=== PATIENT | male | born 1950 | race Caucasian/White ===

== ENCOUNTER 2023-05-25 14:14 | Outpatient (REF) | payer MEDICARE, OTHER, SELFPAY ==
--- NOTE | ~2023-05-25 | XR_ITS ---
EXAMINATION: XR LUMBOSACRAL SPINE WITH OBLIQUES CLINICAL INFORMATION: Pain. Other symptoms and signs involving nervous system. COMPARISON: None available. TECHNIQUE: AP and lateral views of the lumbar spine were obtained. The technologist reports that the patient was unable to stand for the bending views. Therefore, this is a 2 view examination. FINDINGS: There is an old anterior compression fracture of the T12 vertebral body which exhibits approximately 35% height loss. There are 5 segmented vertebra of the lumbar spine. The lumbar vertebral body heights are maintained. Mild multilevel narrowing of lumbar disc spaces and vertebral osteophyte formation. Also, there is moderate loss of disc height at L3-L4. There is approximately 0.3 cm of mild degenerative retrolisthesis at L1-L2, L2-L3 and L3-L4. Alignment is normal at L4-L5 and L5-S1. The spinous processes are hypertrophied and are likely chronically abutting at L2-L3, L3-L4 and L4-L5. Sacrum and sacroiliac joints are unremarkable. There is atherosclerotic calcification of the aorta and iliac arteries. XR/XR lumbar spine 2-3V IMPRESSION: * No acute abnormalities within the degenerated lumbar spine. * The loss of disc height is worst (moderate in degree) at L3-L4. * Mild degenerative retrolisthesis is noted at L1-L2, L2-L3 and L3-L4. 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 * Old compression fracture of the T12 vertebral body.
== END 2023-05-25 14:15 | disposition home or self-care (01) ==
LOC: HO.HOSX 14:14
PROVIDERS: Visit Provider Physician Assistant
DX: M54.50 Low back pain, unspecified (principal); R29.818 Other symptoms and signs involving the nervous system
CPT/HCPCS: 72100; 72110; 99202

== ENCOUNTER 2023-05-25 14:14 | Outpatient (AMB) | payer MEDICARE, OTHER, SELFPAY ==
--- NOTE | 2023-05-25 14:31 | HO.SPINEOV ---
Intake Intake Visit Reasons: Back pain Intake Note: Mr. Shay is here c/o back pain that radiates to left hip County Manager Required: No Allergies No Known Allergies Allergy (Verified 05/25/23 14:40) Assessment & Plan Assessment & Plan (1) Neurogenic claudication: Code(s): R29.818 - Other symptoms and signs involving the nervous system Plan Nasrin is a pleasant 73-year-old male who is self-referred here. He comes in today with a chief complaint low back pain with radiation into his left lower extremity. He reports that his associated symptoms of difficulty walking. He states that his pain starts in his low back, shoots into his left lateral hip, goes over the top of his left thigh, down around the back of his knee, into his posterior/lateral calf and terminates at the top of his left foot. He states that this pain started roughly 4/5 years ago, and does not have any inciting incident that he can identify. He states that he has been to physical therapy multiple times since his initial injury which has been unhelpful, and has also tried several different cortisone injections into his back which have not been helpful. He has tried a plethora of svev-cug-ffvaazi medications with only minimal relief. He is now at the point where he can only walk very short distances until he feels shooting pains into his leg and needs to stop. He reports that previously he was able to mitigate this pain by using assistive devices such as his cane or a shopping cart to walk around a store. But now it is to the point where even with a cane he can not walk more than about 30 seconds. PMH: Two stents placed in his heart in November of last year (currently on anticoagulation in the form of Ticagrelor). T2DM (patient unsure of last A1C, states it is well controlled with Metformin alone). Hypothyroidism, GERD, gout, hyperlipidemia, hypertension, BPH. Social hx: Patient does not smoke, reports no substance use. Medications: Aspirin, lisinopril, allopurinol, esomeprazole, levothyroxine, metoprolol, atorvastatin, eplerenone, Flomax, metformin. Allergies: NKDA. Physical exam: The patient has 5/5 strength in his upper and lower extremities. No sensational deficits. Reflexes are 2+ intact. He has significant difficulty with ambulation needs to utilize a cane to do so. He is able to rise from seated position without significant difficulty. (-) Lewis's, (-) clonus, (-) straight leg raise. Imaging review: MRI of the lumbar spine completed at [facility] (Olga has the disc) is non-interactive and shows individual pictures that must be panned through. It appears the patient has severe central canal stenosis accompanied by severe bilateral foraminal stenosis at L3-4. There is also moderate-severe central canal stenosis, accompanied by moderate-severe bilateral foraminal stenosis at L4-5. Impression: Nasrin is a pleasant 73-year-old male who comes in today with a chief complaint of low back pain with radiation into his left lower extremity. He has significant difficulty walking as well, and is now at the point where he can not ambulate for more than 30 seconds without needing to stop and rest. His lumbar radiculopathy on the left side is in a classic L4/5 distribution. His inability to ambulate for prolonged periods of time without needing to rest is classic for neurogenic claudication as a result of spinal canal stenosis. After reviewing this patient's case and imaging with Dr. Gudino he offered the patient a left-sided L3-4, L4-5 lumbar decompression. The patient has been added to our schedule for 08/11/2023. He is aware that he will need to stop his Ticagrelor 3 days hours before surgery. He will also need to see his caser shoe parts and obtain cardiac clearance prior to surgery. The patient was given risk and benefits of surgery including but not limited to infection, hematoma, nerve injury, durotomy, weakness, bowel/bladder injury, persistent pain, as well as the option to continue with conservative treatment and patient wishes to proceed with surgery. He is aware they should stop NSAIDs 7 days prior to surgery. All questions were answered to the best of our ability. If there is anything about this patients medical history that we have overlooked or concerns you have about us proceeding with surgery we would appreciate any input you can offer. Thank you for allowing us to care for your patient. The total time spent with this visit with this patient was 45 minutes reviewing history, physical exam, MRI imaging review, and implementation of treatment plan or further diagnostic testing. Rocco Gudino MD,PhD [facility] Orders: Orders XR lumbar spine 4V min Today R29.818 - Other symptoms and signs involving the nervous system Coding Level of Care Code Global (37042) Diagnoses Neurogenic claudication R29.818
== END 2023-05-25 15:37 | disposition home or self-care (01) ==
PROVIDERS: Visit Provider Physician Assistant
DX: R29.818 Other symptoms and signs involving the nervous system (principal)
CPT/HCPCS: 99204

== ENCOUNTER → 2023-07-28 13:22 | Outpatient (BNV) | payer MEDICARE, OTHER, SELFPAY | PROVIDERS: Visit Provider Internal Medicine Cardiovascular Disease | DX: I44.0 Atrioventricular block, first degree (principal) | CPT/HCPCS: 93010 ==

== ENCOUNTER 2023-10-06 08:44 | Day surgery (SDC) | payer MEDICARE, OTHER, SELFPAY ==
--- NOTE | 2023-07-28 | ECG_ITS ---
Test Reason : PREOP Blood Pressure : / mmHG Vent. Rate : 078 BPM Atrial Rate : 078 BPM P-R Int : 214 ms QRS Dur : 088 ms QT Int : 384 ms P-R-T Axes : 052 021 049 degrees QTc Int : 437 ms Sinus rhythm with 1st degree A-V block Otherwise normal ECG No previous ECGs available Referred By: Annette Lee Electronically Signed By:ZACH FLYNN MD
[2023-07-28 12:17] VITALS: BP 135/66; PULSE 74; RESP 20; O2SAT 98; BMI 34.9
--- NOTE | 2023-07-28 12:28 | P.CONAN_ITS ---
HPI - Anesthesia Eval Consult details Narrative: Surgery to be rescheduled Pt with critically low H&H at [facility]. Call to patient with recommendation for return to [facility] for ER eval. Pt and family on their way home to [place] and prefer to seek medical attention closer to home. Pt asymptomatic and is not driving himself. T/C to pt's PCP Dr Casas in [place], [place] with results of CBC. PCP contacting patient with instruction to go to local ER for further w/u. Pt will need anemia optimized prior to elective spine surgery. (Also, pending cardiac clearance scheduled for 08/02/23) 73yo M for Left L 3-4,L4-5 Microlumbar discectomy Cardiac clearance pending No recent illness No CP. REEVES r/t deconditioning. Very limited activity CAD s/p stent x 2, last 11/2022: Brillinta, aspirin CHF: No edema, no orthopnea s/p RUL lobectomy 2020 DM: Metoformin only, does not check BS GERD: ppi controlls ROXANNE:No CPAP at this time, denies CRI: Follows nephrology [facility] Active Problems Active Problems: All Active Problems Neurogenic claudication (Acute) Past Medical History Medical History (Updated 07/28/23 @ 12:26 by Mayra Kramer RN) Chronic renal insufficiency Compression fracture of T12 vertebra Murmur Lung cancer Arthritis CHF (congestive heart failure) Iron deficiency anemia Hypothyroid Sleep apnea Gout CAD (coronary artery disease) Diabetes GERD (gastroesophageal reflux disease) Elevated cholesterol HTN (hypertension) Family History Family history of problems with anesthesia: No Surgical History Surgical History (Updated 07/28/23 @ 12:13 by Mayra Kramer RN) H/O colonoscopy Hx of inguinal hernia repair History of back surgery History of lung surgery Hx of heart artery stent History of Problems with Anesthesia: No Social History Social History Are you a primary nonfarm animal caretaker to a significant other at home: No Do you presently have visiting nurse or other home services: No Patient Tobacco Use Status: Former Tobacco user Quit Date: 2019 Tobacco use type: Cigarette Years Smoked: 40 Use of substances other than those prescribed or required for medical reasons: No Have you been hit, kicked, punched, or otherwise hurt by someone within the past year? If so, by whom?: No Are you DNR?: No Advance Directives Information Provided: Yes (as above noted) Advance Directives on File: No Recently lost weight without trying: No Eating poorly because of decreased appetite: No Nutrition Risks: No Nutritional Risk Meds Allergies Allergy/AdvReac Type Severity Reaction Status Date / Time No Known Allergies Allergy Verified 05/25/23 14:40 Home Medications ?Medication ?Instructions ?Recorded ?Confirmed ?Last Taken ?Type allopurinol 100 mg tablet 200 mg PO QAM 05/25/23 07/28/23 Unknown History aspirin 81 mg tablet,delayed 81 mg PO QAM 05/25/23 07/28/23 Unknown History release atorvastatin 40 mg tablet 40 mg PO BEDTIME 05/25/23 07/28/23 Unknown History esomeprazole magnesium 40 mg 40 mg PO QAM 05/25/23 07/28/23 Unknown History capsule,delayed release lisinopril 40 mg tablet 40 mg PO QAM 05/25/23 07/28/23 Unknown History metoprolol succinate 100 mg 100 mg PO BEDTIME 05/25/23 07/28/23 Unknown History tablet,extended release 24 hr eplerenone 50 mg tablet 50 mg PO BEDTIME 07/27/23 07/28/23 Unknown History metformin 500 mg tablet 500 mg PO BID 07/27/23 07/28/23 Unknown History tamsulosin 0.4 mg capsule 0.4 mg PO BEDTIME 07/27/23 07/28/23 Unknown History ticagrelor 90 mg tablet (Brilinta) 90 mg PO BID 07/27/23 07/28/23 Unknown History docusate sodium 100 mg capsule 100 mg PO Q2D 07/28/23 07/28/23 Unknown History (Colace) ferrous sulfate 325 mg (65 mg 325 mg PO Q2D 07/28/23 07/28/23 Unknown History iron) tablet levothyroxine 100 mcg tablet 100 mcg PO QAM 07/28/23 07/28/23 Unknown History Exam Height,Weight and Vital Signs: Height 5 ft 11 in Weight 113.398 kg Last Vital Signs Pulse 74 07/28/23 12:17 Resp 20 07/28/23 12:17 BP 135/66 07/28/23 12:17 Pulse Ox 98 07/28/23 12:17 O2 Del Method Room Air 07/28/23 12:17 Airway Mallampati Class: II TM Dist: >3cm Neck ROM: Full (OA) Loose/Missing/Broken Teeth: No (#8 capped, crowned molars,Upper permanent bridge) Heart: RRR +M Lungs: CTAB Assessment and Plan Assessment Anesthesia Assessment: Anesthesia Plan Discussed and PAT Visit Final Anesthetic Review Family History of Problems with Anesthesia: No History of Problems with Anesthesia: No
[2023-07-28 13:20] LABS: MANUAL DIFF FLAG NO
[2023-07-28 14:06] LABS: Basophils Absolute Auto 0.1 X10*3/uL (0.0-0.2); Basophils Percent Auto 0.6 % (0-2); Eosinophils Absolute Auto 0.4 X10*3/uL (0.0-0.4); Eosinophils Percent Auto 3.2 % (0-4); Imm Gran Abs Auto 0.08 X10*3/uL (0.00-0.03); Imm Gran Pct Auto 0.7 % (0.0-0.4); Lymphocytes Absolute Auto 1.4 X10*3/uL (1.2-4.9); Lymphocytes Percent Auto 12.3 % (20-40); Mean Corpuscular HGB Conc 25.4 g/dl (31.0-36.0); Mean Corpuscular Hemoglobin 17.6 pg (27.0-33.0); Mean Corpuscular Volume 69.4 fL (80.0-98.0); Mean Platelet Volume 9.7 fL (9.4-12.4); Monocytes Absolute Auto 0.9 X10*3/uL (0.1-1.2); Monocytes Percent Auto 7.9 % (2-11); Neutrophils Absolute Auto 8.4 x10*3/uL (2.0-8.3); Neutrophils Percent Auto 75.3 % (45-73); Platelet Count 275 X10*3/uL (160-400); Red Blood Count 3.46 X10*6/uL (4.60-5.80); Red Cell Distribution Width 20.1 % (11.0-16.0); White Blood Count 11.2 X10*3/uL (4.8-10.8)
[2023-07-28 14:12] LABS: Hemoglobin 6.1 g/dl (14.0-18.0)
[2023-07-28 14:15] LABS: Estimated Average Glucose 100 mg/dL; Hemoglobin A1c % 5.1 % (<6.0)
[2023-07-28 14:47] LABS: Anion Gap 17 (12-20); Blood Urea Nitrogen 14 mg/dL (9-16); Calcium 9.8 mg/dL (8.4-10.2); Carbon Dioxide 22 mmol/L (22-29); Chloride 107 mmol/L (96-108); Creatinine Clr Calc Pharmacy 59.8; Estimated Glomerular Filt Rate 48; Glucose Random 86 mg/dL (60-115); Potassium 5.2 mmol/L (3.3-5.1); Sodium 141 mmol/L (135-145)
[2023-07-28 15:02] LABS: TSH reflex Free T4 0.52 uIU/mL (0.32-4.0)
--- NOTE | 2023-10-05 08:50 | HO.ANESPROP2 ---
HPI - Anesthesia Eval Consult details Narrative: 73yo M for Left L 3-4,L4-5 Microlumbar discectomy Cardiac optimized No recent illness No CP. REEVES r/t deconditioning. Very limited activity CAD s/p stent x 2, last 11/2022: Brillinta, aspirin. Follows quality improvement coordinator in [place] CHF: No edema, no orthopnea s/p RUL lobectomy 2020 DM: Metoformin only, does not check BS GERD: ppi controlls ROXANNE:No CPAP at this time, denies CRI: Follows nephrology 07/28/23: Pt with critically low H&H at [facility]. Call to patient with recommendation for return to [facility] for ER eval. Pt and family on their way home to [place] and prefer to seek medical attention closer to home. Pt asymptomatic and is not driving himself. T/C to pt's PCP Dr Casas in [place], [place] with results of CBC. PCP contacting patient with instruction to go to local ER for further w/u. Pt will need anemia optimized prior to elective spine surgery. (Also, pending cardiac clearance scheduled for 08/02/23) 09/2023: Pt rec'd 2 units of PRBC in ER in July. Seen by quality improvement coordinator that recommending stopping DAPT (stent 8 months prior). Hgb up to 11.. Cardiac clearance rec'd. PMFSH Active Problems Active Problems: All Active Problems Neurogenic claudication (Acute) Past Medical History Medical History Chronic renal insufficiency Compression fracture of T12 vertebra Murmur Lung cancer Arthritis CHF (congestive heart failure) Iron deficiency anemia Hypothyroid Sleep apnea Gout CAD (coronary artery disease) Diabetes GERD (gastroesophageal reflux disease) Elevated cholesterol HTN (hypertension) Family History Family history of problems with anesthesia: No Surgical History Surgical History H/O colonoscopy Hx of inguinal hernia repair History of back surgery History of lung surgery Hx of heart artery stent History of Problems with Anesthesia: No Social History Social History Are you a primary customer care representative to a significant other at home: No Do you presently have visiting nurse or other home services: No Patient Tobacco Use Status: Former Tobacco user Tobacco use type: Cigarette Years Smoked: 40 Meds Allergies Allergy/AdvReac Type Severity Reaction Status Date / Time No Known Allergies Allergy Verified 05/25/23 14:40 Home Medications ?Medication ?Instructions ?Recorded ?Confirmed ?Last Taken ?Type allopurinol 100 mg tablet 200 mg PO QAM 05/25/23 10/06/23 10/05/23 History aspirin 81 mg tablet,delayed 81 mg PO QAM 05/25/23 10/06/23 10/05/23 History release atorvastatin 40 mg tablet 40 mg PO BEDTIME 05/25/23 10/06/23 10/05/23 History esomeprazole magnesium 40 mg 40 mg PO QAM 05/25/23 07/28/23 10/06/23 History capsule,delayed release lisinopril 40 mg tablet 40 mg PO QAM 05/25/23 07/28/23 Unknown History metoprolol succinate 100 mg 100 mg PO BEDTIME 05/25/23 07/28/23 10/06/23 History tablet,extended release 24 hr eplerenone 50 mg tablet 50 mg PO BEDTIME 07/27/23 10/06/23 10/05/23 History metformin 500 mg tablet 500 mg PO BID 07/27/23 10/06/23 10/05/23 History tamsulosin 0.4 mg capsule 0.4 mg PO BEDTIME 07/27/23 10/06/23 10/05/23 History docusate sodium 100 mg capsule 100 mg PO Q2D 07/28/23 07/28/23 Unknown History (Colace) ferrous sulfate 325 mg (65 mg 325 mg PO Q2D 07/28/23 07/28/23 Unknown History iron) tablet levothyroxine 100 mcg tablet 100 mcg PO QAM 07/28/23 07/28/23 10/06/23 History Exam Height,Weight and Vital Signs: Height 5 ft 11 in Weight 113.398 kg Last Vital Signs Pulse 74 07/28/23 12:17 Resp 20 07/28/23 12:17 BP 135/66 07/28/23 12:17 Pulse Ox 98 07/28/23 12:17 O2 Del Method Room Air 07/28/23 12:17 Pertinent Lab Results Pertinent Lab Results: Laboratory Tests 07/28/23 13:18 WBC 11.2 H RBC 3.46 L Hgb 6.1 L* Hct 24.0 L MCV 69.4 L MCH 17.6 L MCHC 25.4 L RDW 20.1 H Plt Count 275 MPV 9.7 Immature Gran % (Auto) 0.7 H Neut % (Auto) 75.3 H Lymph % (Auto) 12.3 L [place] % (Auto) 7.9 Eos % (Auto) 3.2 Baso % (Auto) 0.6 Lymph # (Auto) 1.4 [place] # (Auto) 0.9 Eos # (Auto) 0.4 Baso # (Auto) 0.1 Abs Immat Gran (auto) 0.08 H Absolute Neuts (auto) 8.4 H Absolute Nucleated RBC 0.000 Nucleated RBC % (auto) 0.0 Smear Path Review SEE NOTE Sodium 141 Potassium 5.2 H Chloride 107 Carbon Dioxide 22 Anion Gap 17 BUN 14 Creatinine 1.45 H Estim Creat Clear Calc 59.8 Estimated GFR 48 Random Glucose 86 Estimat Average Glucose 100 Hemoglobin A1c % 5.1 Calcium 9.8 TSH 0.52 Repeat H&H 09/27/23: 11.5/40.5 Narrative Narrative: EKG 07/2023 Vent. Rate : 078 BPM Atrial Rate : 078 BPM P-R Int : 214 ms QRS Dur : 088 ms QT Int : 384 ms P-R-T Axes : 052 021 049 degrees QTc Int : 437 ms Sinus rhythm with 1st degree A-V block Otherwise normal ECG No previous ECGs available Assessment and Plan Final Anesthetic Review Family History of Problems with Anesthesia: No History of Problems with Anesthesia: No
[2023-10-06] VITALS (10 sets, daily range): BP systolic 161–176; BP diastolic 81–95; PULSE 59–72; RESP 13–18; TEMP 36.4–36.8; O2SAT 93–98; BMI 36.3
--- NOTE | ~2023-10-06 | FL_ITS ---
EXAMINATION: XR FLUOROSCOPY WITH IMAGES CLINICAL INFORMATION: L3-4 and L4-5 discectomy. COMPARISON: Plain films lumbar spine 05/25/2023. TECHNIQUE: Fluoroscopy provided to: Dr. Gudino Fluoroscopy time: 0.1 minutes DAP: 0.806 Gycm2 Images: 1 FINDINGS: Image only of a left marker. FL/FL guidance in OR IMPRESSION: Fluoroscopic guidance. Please refer to the full operative report for details. Electronically signed by: Ron Tristan MD 12/07/2023 04:43 PM EDT
--- OUTSIDE RECORDS SUMMARY | 2023-10-06 08:46 | XMS_ITS | Summary of Care ---
Author Organization [facility] Address [address] [place], [place] [address]- Care Team Providers Care Contract Negotiation Specialist Name Role Phone Lazara Casas DO Primary Care Physician Encounter [facility] [id number] Date(s): 04/18/20 - 04/18/20 [place] [id number] Discharge Disposition: Home Attending Physician: Charmaine Perez MD Problem List Condition Effective Dates Status Health Status Inform ant Essential hypertension(Confirmed) Active Hyperlipemia(Confirmed) Active Lung cancer(Confirmed) Active Urinary urgency due to benig n prostatic hypertrophy(Confirmed) Active Allergies, Adverse Reactions, Alerts No Known Allergies Medications aspirin 81 mg oral delayed release tablet 81 mg 1 tab, PO, daily, # 30 tab, 0 Refill(s), Pharmacy: [facility] #[id number] Start Date: 10/31/17 Status: Ordered atorvastatin 40 mg oral tablet 40 mg 1 tab, PO, qPM, # 30 tab, 0 Refill(s), [id number] Start Date: 10/31/17 Status: Ordered chlorthalidone 25 mg oral tablet 25 mg 1 tab, PO, daily, 0 Refill(s) Start Date: 02/25/20 Status: Ordered Compazine 10 mg oral tablet 10 mg 1 tab, PO, q6hr, PRN Nausea/Vomiting, # 30 tab, 2 Refill(s), Pharmacy: [facility] #[id number], 180.34, cm, 03/21/20 10:24:00 EST, Height, 132, kg, 03/21/20 10:24:00 EST, Actual Weight Start Date: 03/21/20 Status: Ordered dexamethasone 4 mg oral tablet 4 mg 1 tab, PO, BID, for 3 days starting the day before chemo, # 30 tab, 0 Refill(s), Pharmacy: [facility] #[id number], 180.34, cm, 03/21/20 10:24:00 EST, Height, 132, kg, 03/21/20 10:24:00 EST,Actual Weight Start Date: 03/21/20 Status: Ordered eplerenone 50 mg oral tablet 50 mg 1 tab, PO, daily, 0 Refill(s) Start Date: 02/25/20 Status: Ordered felodipine 10 mg oral tablet, extended release 10 mg 1 tab, PO, daily, # 30 tab, 0 Refill(s), [id number] Start Date: 10/31/17 Status: Ordered folic acid 1 mg oral tablet 1 mg 1 tab, PO, daily, Take once daily starting 5 - 7 days before chemotherapy., # 30 tab, 5 Refill(s), Pharmacy: [facility] #[id number], 180.34, cm, 03/21/20 10:24:00 EST, Height, 132, kg, 03/21/20 10:24:00 EST, Actual Weight Start Date: 03/21/20 Status: Ordered lisinopril 40 mg oral tablet 40 mg 1 tab, PO, daily, # 30 tab, 0 Refill(s), [id number] Start Date: 10/31/17 Status: Ordered Metoprolol Succinate ER 100 mg oral tablet, extended release 100 mg 1 tab, PO, qPM, # 30 tab, 0 Refill(s), [id number] Start Date: 10/31/17 Status: Ordered ondansetron 4 mg oral tablet 4 mg 1 tab, PO, q8hr, PRN nausea/vomiting, # 20 tab, 2 Refill(s), Pharmacy: [facility] #[id number], 180.34, cm, 03/21/20 10:24:00 EST, Height, 132, kg, 03/21/20 10:24:00 EST, Actual Weight Start Date: 03/21/20 Status: Ordered tamsulosin 0.4 mg oral capsule 0.4 mg 1 cap, PO, daily, TK 1 C PO QD Start Date: 02/25/20 Status: Ordered Immunizations Given and Recorded Vaccine Date Status Refusal Reason pneumococcal 23-polyvalent vaccine 1 10/31/17 Give n 1Early/Late Reason: Nursing Judgment Social History Social History Type Response
--- OUTSIDE RECORDS SUMMARY | 2023-10-06 08:46 | XMS_ITS | Summary of Care ---
/Man Author Organization [facility] Address [address] [place], [place] [address]- Care Team Providers Care Tax Services Manager Name Role Phone Lazara Casas DO Primary Care Physician Encounter [facility] [id number] Date(s): 08/25/20 - 08/25/20 [place] [id number] Discharge Disposition: Home Attending Physician: Jorje TERRAZAS, Lamont Mcallister Referring Physician: Lazara Casas DO Problem List Condition Effective Dates Status Health Status Inform ant Essential hypertension(Confirmed) Active Hyperlipemia(Confirmed) Active Malignant neoplasm of unspec ified part of unspecified bronchus or lung(Confirmed) Active Lung cancer(Confirmed) Active Urinary urgency due to benig n prostatic hypertrophy(Confirmed) Active Allergies, Adverse Reactions, Alerts No Known Allergies Medications aspirin 81 mg oral delayed release tablet 81 mg 1 tab, PO, daily, # 30 tab, 0 Refill(s), [id number] Start Date: 10/31/17 Status: Ordered atorvastatin 40 mg oral tablet 40 mg 1 tab, PO, qPM, # 30 tab, 0 Refill(s), Pharmacy: [facility] #[id number] Start Date: 10/31/17 Status: Ordered chlorthalidone 25 mg oral tablet 25 mg 1 tab, PO, daily, 0 Refill(s) Start Date: 02/25/20 Status: Ordered Compazine 10 mg oral tablet 10 mg 1 tab, PO, q6hr, PRN Nausea/Vomiting, # 30 tab, 2 Refill(s), Pharmacy: [facility] #[id number], 180.34, cm, 03/21/20 10:24:00 EST, Height, 132, kg, 03/21/20 10:24:00 EST, Actual Weight Start Date: 03/21/20 Status: Ordered dexamethasone 4 mg oral tablet 4 mg 1 tab, PO, BID, for 3 days starting the day before chemo, # 30 tab, 0 Refill(s), Pharmacy: [facility] #[id number], 180.34, cm, 03/21/20 10:24:00 EST, Height, 132, kg, 03/21/20 10:24:00 EST,Actual Weight Start Date: 03/21/20 Status: Ordered eplerenone 50 mg oral tablet 50 mg 1 tab, PO, daily, 0 Refill(s) Start Date: 02/25/20 Status: Ordered felodipine 10 mg oral tablet, extended release 10 mg 1 tab, PO, daily, # 30 tab, 0 Refill(s), [id number] Start Date: 10/31/17 Status: Ordered folic acid 1 mg oral tablet 1 mg 1 tab, PO, daily, Take once daily starting 5 - 7 days before chemotherapy., # 30 tab, 5 Refill(s), Pharmacy: [facility] #[id number], 180.34, cm, 03/21/20 10:24:00 EST, Height, 132, kg, 03/21/20 10:24:00 EST, Actual Weight Start Date: 03/21/20 Status: Ordered lisinopril 40 mg oral tablet 40 mg 1 tab, PO, daily, # 30 tab, 0 Refill(s), Pharmacy: [facility] #[id number] Start Date: 10/31/17 Status: Ordered Metoprolol Succinate ER 100 mg oral tablet, extended release 100 mg 1 tab, PO, qPM, # 30 tab, 0 Refill(s), Pharmacy: [facility] #[id number] Start Date: 10/31/17 Status: Ordered ondansetron 4 mg oral tablet 4 mg 1 tab, PO, q8hr, PRN nausea/vomiting, # 20 tab, 2 Refill(s), Pharmacy: [facility] #[id number], 180.34, cm, 03/21/20 10:24:00 EST, Height, 132, kg, 03/21/20 10:24:00 EST, Actual Weight Start Date: 03/21/20 Status: Ordered Pfizer-BioNTech COVID-19 Vaccine 30 mcg/0.3 mL preservative-free intramuscular suspension 30 mcg 0.3 mL, IM, once, 0 Refill(s) Start Date: 04/28/20 Status: Ordered tamsulosin 0.4 mg oral capsule 0.4 mg 1 cap, PO, daily, TK 1 C PO QD Start Date: 02/25/20 Status: Ordered Immunizations Given and Recorded Vaccine Date Status Refusal Reason SARS-CoV-2 (Covid-19) mRNA BNT-162b2 vax 05/19/20 Recorded pneumococcal 23-polyvalent vaccine 1 10/31/17 Give n 1Early/Late Reason: Nursing Judgment Social History Social History Type Response
--- OUTSIDE RECORDS SUMMARY | 2023-10-06 08:47 | XMS_ITS | Summary of Care ---
/Man Author Organization [facility] Address [address] [id number]- Care Team Providers Care Heavy Media Operator Name Role Phone Lazara Casas DO Primary Care Physician [phone] Encounter [facility] [id number] Date(s): 07/25/23 - 07/25/23 [place] [id number] Discharge Disposition: Home Attending Physician: Jorje TERRAZAS, Lamont Mcallister Problem List Condition Confirmation Course Effective Dates Status Health Status Informant Chronic kidney disease stage 3 Confirmed 10/05/21 Active Essential hypertension Confirmed Active Essential hypertension Confirmed 10/05/21 Active Gout Confirmed 10/05/21 Active Hyperlipemia Confirmed Active Malignant neoplasm of unspecified part of unspecified bronchus or lung Confirmed Active Lung cancer Confirmed Active Malignant tumor of lung Confirmed 10/05 - 03/03/22 Resolved Secondary hyperaldosteronism Confirmed 10/05/21 Active Urinary urgency due to benign prostatic hypertrophy Confirmed Active Allergies, Adverse Reactions, Alerts No Known Allergies Medications albuterol HFA 90 mcg/inh MDI 180 mcg 2 puff, inh, q4hr, PRN Wheezing, # 18 g, 0 Refill(s), Pharmacy: [facility] #[id number], 182, cm, 03/04/22 16:37:00 EST, Height, 115.7, kg, 03/04/22 16:37:00 EST, Actual Weight Start Date: 03/08/22 Status: Ordered allopurinol 100 mg oral tablet 200 mg 2 tab, PO, daily, 0 Refill(s) Start Date: 03/01/22 Status: Ordered Ecotrin Adult Low Strength 81 mg oral delayed release tablet 81 mg 1 tab, PO, daily, 0 Refill(s) Start Date: 03/01/22 Status: Ordered eplerenone 50 mg oral tablet 50 mg 1 tab, PO, daily, 0 Refill(s) Start Date: 03/01/22 Status: Ordered felodipine 10 mg oral tablet, extended release 10 mg 1 tab, PO, daily, 0 Refill(s) Start Date: 03/01/22 Status: Ordered ferrous sulfate PO, 0 Refill(s) Start Date: 03/02/23 Status: Ordered Lipitor 40 mg oral tablet 40 mg 1 tab, PO, daily, 0 Refill(s) Start Date: 03/01/22 Status: Ordered lisinopril 40 mg oral tablet 40 mg 1 tab, PO, daily, 0 Refill(s) Start Date: 03/01/22 Status: Ordered metFORMIN 500 mg oral tablet 500 mg 1 tab, PO, BID, 0 Refill(s) Start Date: 03/01/22 Status: Ordered NexIUM 40 mg oral delayed release capsule 40 mg 1 cap, PO, daily, 0 Refill(s) Start Date: 03/01/22 Status: Ordered Synthroid 125 mcg (0.125 mg) oral tablet 125 mcg 1 tab, PO, daily, 0 Refill(s) Start Date: 03/01/22 Status: Ordered Toprol-XL 100 mg oral tablet, extended release 100 mg 1 tab, PO, qHS, 0 Refill(s) Start Date: 03/01/22 Status: Ordered Immunizations Given and Recorded Vaccine Date Status Refusal Reason influenza virus vaccine, inactivated 12/09/21 Donovan rded SARS-CoV-2 mRNA (tozinameran) vaccine 07/15/21 Rec orded SARS-CoV-2 mRNA (tozinameran) vaccine 12/08/20 Rec orded SARS-CoV-2 mRNA (tozinameran) vaccine 05/21/20 Rec orded SARS-CoV-2 mRNA (tozinameran) vaccine 04/26/20 Rec orded pneumococcal 23-polyvalent vaccine 1 10/31/17 Give n 1Early/Late Reason: Nursing Judgment Social History Social History Type Response
--- OUTSIDE RECORDS SUMMARY | 2023-10-06 08:47 | XMS_ITS | Summary of Care ---
Author Organization [facility] Address [address] [place], [place] [address]- Care Team Providers Care Freight Solicitor Name Role Phone Lazara Casas DO Primary Care Physician Encounter [facility] [id number] Date(s): 05/09/20 - 05/09/20 [place] [id number] Discharge Disposition: Home Attending Physician: Charmaine Perez [...] daily, # 30 tab, 0 Refill(s), [facility]acy: [facility] #[id number] Start Date: 10/31/17 Status: Ordered atorvastatin 40 mg oral tablet 40 mg 1 tab, PO, qPM, # 30 tab, 0 Refill(s), Pharmacy: [facility] #0621 Start Date: 10/31/17 Status: Ordered chlorthalidone 25 mg oral tablet 25 mg 1 tab, PO, daily, 0 Refill(s) Start Date: 02/25/20 Status: Ordered Compazine 10 mg oral tablet 10 mg 1 tab, PO, q6hr, PRN Nausea/Vomiting, # 30 tab, 2 Refill(s), Pharmacy: [facility] #[id number], 180.34, cm, 03/21/20 10:24:00 EST, Height, 132, kg, 03/21/20 10:24:00 EST, Actual Weight Start Date: 03/21/20 Status: Ordered dexamethasone 4 mg oral tablet 4 mg 1 tab, PO, BID, for 3 days starting the day before chemo, # 30 tab, 0 Refill(s), Pharmacy: [facility] #[id number], 180.34, cm, 03/21/20 10:24:00 EST, Height, 132, kg, 03/21/20 10:24:00 EST,Actual Weight Start Date: 03/21/20 Status: Ordered eplerenone 50 mg oral tablet 50 mg 1 tab, PO, daily, 0 Refill(s) Start Date: 02/25/20 Status: Ordered felodipine 10 mg oral tablet, extended release 10 mg 1 tab, PO, daily, # 30 tab, 0 Refill(s), [facility] Start Date: 10/31/17 Status: Ordered folic acid 1 mg oral tablet 1 mg 1 tab, PO, daily, Take once daily starting 5 - 7 days before chemotherapy., # 30 tab, 5 Refill(s), Pharmacy: [facility] #[id number], 180.34, cm, 03/21/20 10:24:00 EST, Height, 132, kg, 03/21/20 10:24:00 EST, Actual Weight Start Date: 03/21/20 Status: Ordered lisinopril 40 mg oral tablet 40 mg 1 tab, PO, daily, # 30 tab, 0 Refill(s), [facility] Start Date: 10/31/17 Status: Ordered Metoprolol Succinate ER 100 mg oral tablet, extended release 100 mg 1 tab, PO, qPM, # 30 tab, 0 Refill(s), [facility] Start Date: 10/31/17 Status: Ordered ondansetron 4 mg oral tablet 4 mg 1 tab, PO, q8hr, PRN nausea/vomiting, # 20 tab, 2 Refill(s), Pharmacy: [facility] #[id number], 180.34, cm, 03/21/20 10:24:00 EST, Height, 132, kg, 03/21/20 10:24:00 EST, Actual Weight Start Date: 03/21/20 Status: Ordered [employer] COVID-19 Vaccine 30 mcg/0.3 mL preservative-free intramuscular [...]
--- OUTSIDE RECORDS SUMMARY | 2023-10-06 08:47 | XMS_ITS | Summary of Care ---
/Man Author Organization [facility] Address [address] [id number]- Care Team Providers Care English Tutor Name Role Phone Lazara Casas DO Primary Care Physician Encounter [facility] [id number] Date(s): 12/29/20 - 12/29/20 [place] [id number] Discharge Disposition: Home Attending Physician: Selvin Alves MD Referring Physician: Lazara Casas DO Problem List Condition Effective Dates Status Health Status Inform ant Essential hypertension(Confirmed) Active Hyperlipemia(Confirmed) Active Malignant neoplasm of unspec ified part of unspecified bronchus or lung(Confirmed) Active Lung cancer(Confirmed) Active Urinary urgency due to benig n prostatic hypertrophy(Confirmed) Active Allergies, Adverse Reactions, Alerts No Known Allergies Medications allopurinol 100 mg oral tablet 200 mg 2 tab, PO, daily, # 180 tab, 0 Refill(s) Start Date: 12/10/20 Status: Ordered aspirin 81 mg oral delayed release tablet 81 mg 1 tab, PO, daily, # 30 tab, 0 Refill(s), Pharmacy: [facility] #0621 Start Date: 10/31/17 Status: Ordered atorvastatin 40 mg oral tablet 40 mg 1 tab, PO, qPM, # 30 tab, 0 Refill(s), Pharmacy: [facility] #0621 Start Date: 10/31/17 Status: Ordered eplerenone 50 mg oral tablet 50 mg 1 tab, PO, daily, 0 Refill(s) Start Date: 02/25/20 Status: Ordered felodipine 10 mg oral tablet, extended release 10 mg 1 tab, PO, daily, # 30 tab, 0 Refill(s), [facility] Start Date: 10/31/17 Status: Ordered lisinopril 40 mg oral tablet 40 mg 1 tab, PO, daily, # 30 tab, 0 Refill(s), [facility] Start Date: 10/31/17 Status: Ordered Metoprolol Succinate ER 100 mg oral tablet, extended release 100 mg 1 tab, PO, qPM, # 30 tab, 0 Refill(s), [facility] Start Date: 10/31/17 Status: Ordered [employer] COVID-19 Vaccine 30 mcg/0.3 mL preservative-free intramuscular suspension 30 mcg 0.3 mL, IM, once, 0 Refill(s) Start Date: 04/28/20 Status: Ordered predniSONE 2.5 mg oral tablet 2.5 mg 1 tab, PO, daily, # 14 tab, 0 Refill(s) Start Date: 09/12/20 Status: Ordered tamsulosin 0.4 mg oral capsule 0.4 mg 1 cap, PO, daily, TK 1 C PO QD Start Date: 02/25/20 Status: Ordered Immunizations Given and Recorded Vaccine Date Status Refusal Reason SARS-CoV-2 (Covid-19) mRNA BNT-162b2 vax 05/19/20 Recorded pneumococcal 23-polyvalent vaccine 1 10/31/17 Give n 1Early/Late Reason: Nursing Judgment Social History Social History Type Response
--- OUTSIDE RECORDS SUMMARY | 2023-10-06 08:47 | XMS_ITS | Summary of Care ---
Author Organization [facility] Address [address] [place], [place] [address]- Care Team Providers Care Hazardous Materials Handler Name Role Phone Lazara Casas DO Primary Care Physician Encounter [facility] [id number] Date(s): 02/24/20 - 02/25/20 [place] [id number] Discharge Disposition: Home Attending Physician: Jorje TERRAZAS, Lamont Mcallister Problem List Condition Effective Dates Status Health Status Inform ant Essential hypertension(Confirmed) Active Hyperlipemia(Confirmed) Active Urinary urgency due to benig n prostatic hypertrophy(Confirmed) Active Allergies, Adverse Reactions, Alerts No Known Allergies Medications aspirin 81 mg oral delayed release tablet 81 mg 1 tab, PO, daily, # 30 tab, 0 Refill(s), Pharmacy: [facility] #0621 Start Date: 10/31/17 Status: Ordered atorvastatin 40 mg oral tablet 40 mg 1 tab, PO, qPM, # 30 tab, 0 Refill(s), [facility]: [facility] #[facility] Start Date: 10/31/17 Status: Ordered chlorthalidone 25 mg oral tablet 25 mg 1 tab, PO, daily, 0 Refill(s) Start Date: 02/25/20 Status: Ordered eplerenone 50 mg oral tablet 50 mg 1 tab, PO, daily, 0 Refill(s) Start Date: 02/25/20 Status: Ordered felodipine 10 mg oral tablet, extended release 10 mg 1 tab, PO, daily, # 30 tab, 0 Refill(s), Pharmacy: [facility] #0621 Start Date: 10/31/17 Status: Ordered lisinopril 40 mg oral tablet 40 mg 1 tab, PO, daily, # 30 tab, 0 Refill(s), Pharmacy: [facility] #0621 Start Date: 10/31/17 Status: Ordered Metoprolol Succinate ER 100 mg oral tablet, extended release 100 mg 1 tab, PO, qPM, # 30 tab, 0 Refill(s), Pharmacy: [facility]acy #0621 Start Date: 10/31/17 Status: Ordered tamsulosin 0.4 mg oral capsule 0.4 mg 1 cap, PO, daily, TK 1 C PO QD Start Date: 02/25/20 Status: Ordered Immunizations Given and Recorded Vaccine Date Status Refusal Reason pneumococcal 23-polyvalent vaccine 1 10/31/17 Give n 1Early/Late Reason: Nursing Judgment Social History Social History Type Response
--- OUTSIDE RECORDS SUMMARY | 2023-10-06 08:47 | XMS_ITS | Summary of Care ---
Author Organization [facility] Address [address] [place], [place] [id number]- Care Team Providers Care Member Of The Legislative Council Name Role Phone Lazara Casas DO Primary Care Physician [phone] Encounter [facility] [id number] Date(s): 12/27/19 - 12/27/19 [place] [id number] Discharge Disposition: Home Attending Physician: Kt Brown DO Referring Physician: Lazara Casas DO Problem List Condition Effective Dates Status Health Status Inform ant Essential hypertension(Confirmed) Active Hyperlipemia(Confirmed) Active Urinary urgency due to benig n prostatic hypertrophy(Confirmed) Active Allergies, Adverse Reactions, Alerts No Known Allergies Medications aspirin 81 mg oral delayed release tablet 81 mg 1 tab, PO, daily, # 30 tab, 0 Refill(s), Pharmacy: [facility] #[facility]21 Start Date: 10/31/17 Status: Ordered atorvastatin 40 mg oral tablet 40 mg 1 tab, PO, qPM, # 30 tab, 0 Refill(s), [facility]acy: [facility] #[facility] Start Date: 10/31/17 Status: Ordered chlorthalidone 25 mg oral tablet 50 mg 2 tab, PO, daily, # 30 tab, 0 Refill(s), [facility]acy: [facility] #[facility] Start Date: 10/31/17 Status: Ordered felodipine 10 mg oral tablet, extended release 10 mg 1 tab, PO, daily, # 30 tab, 0 Refill(s), [facility]: [facility] Start Date: 10/31/17 Status: Ordered lisinopril 40 mg oral tablet 40 mg 1 tab, PO, daily, # 30 tab, 0 Refill(s), Pharmacy: [facility] #0621 Start Date: 10/31/17 Status: Ordered Metoprolol Succinate ER 100 mg oral tablet, extended release 100 mg 1 tab, PO, qPM, # 30 tab, 0 Refill(s), Pharmacy: [facility] #0621 Start Date: 10/31/17 Status: Ordered Immunizations Given and Recorded Vaccine Date Status Refusal Reason pneumococcal 23-polyvalent vaccine 1 10/31/17 Give n 1Early/Late Reason: Nursing Judgment Social History Social History Type Response
--- OUTSIDE RECORDS SUMMARY | 2023-10-06 08:47 | XMS_ITS | Summary of Care ---
Author Organization [facility] Address [address] [place], [place] [address]- Care Team Providers Care Building Supplies Salesperson Retail Name Role Phone Lazara Casas DO Primary Care Physician [phone] Encounter [facility] [id number] Date(s): 11/30/19 - 11/30/19 [place] [id number] Discharge Disposition: Home Attending Physician: Kt Brown [...] daily, # 30 tab, 0 Refill(s), Pharmacy: [facility] #0621 Start Date: 10/31/17 Status: Ordered atorvastatin 40 mg oral tablet 40 mg 1 tab, PO, qPM, # 30 tab, 0 Refill(s), [facility] Start Date: 10/31/17 Status: Ordered chlorthalidone 25 mg oral tablet 50 mg 2 tab, PO, daily, # 30 tab, 0 Refill(s), [facility] Start Date: 10/31/17 Status: Ordered felodipine 10 mg oral tablet, extended release 10 mg 1 tab, PO, daily, # 30 tab, 0 Refill(s), [facility] Start Date: 10/31/17 Status: Ordered lisinopril 40 mg oral tablet 40 mg 1 tab, PO, daily, # 30 tab, 0 Refill(s), Pharmacy: [facility]acy #0621 Start Date: 10/31/17 Status: Ordered Metoprolol Succinate ER 100 mg oral tablet, extended release 100 mg 1 tab, PO, qPM, # 30 tab, 0 Refill(s), Pharmacy: [facility]/pharmacy #0621 Start Date: 10/31/17 Status: Ordered Immunizations Given and Recorded Vaccine Date Status Refusal Reason pneumococcal 23-polyvalent vaccine 1 10/31/17 Give n 1Early/Late Reason: Nursing Judgment Social History Social History Type Response
--- OUTSIDE RECORDS SUMMARY | 2023-10-06 08:47 | XMS_ITS | Summary of Care ---
/Man Author Organization [facility] Address [address] [place], [place] [address]- Care Team Providers Care Touch Up Carver Name Role Phone Lazara Casas DO Primary Care Physician Encounter [facility] [id number] Date(s): 10/15/20 - 10/15/20 [place] [id number] Discharge Disposition: Home Attending Physician: Charmaine [...] daily, # 30 tab, 0 Refill(s), [facility]acy: [facility] #[facility] Start Date: 10/31/17 Status: Ordered atorvastatin 40 mg oral tablet 40 mg 1 tab, PO, qPM, # 30 tab, 0 Refill(s), Pharmacy: [facility] #[facility] Start Date: 10/31/17 Status: Ordered eplerenone 50 mg oral tablet 50 mg 1 tab, PO, daily, 0 Refill(s) Start Date: 02/25/20 Status: Ordered felodipine 10 mg oral tablet, extended release 10 mg 1 tab, PO, daily, # 30 tab, 0 Refill(s), Pharmacy: [facility] #[facility] Start Date: 10/31/17 Status: Ordered lisinopril 40 mg oral tablet 40 mg 1 tab, PO, daily, # 30 tab, 0 Refill(s), Pharmacy: [facility]acy #0621 Start Date: 10/31/17 Status: Ordered Metoprolol Succinate ER 100 mg oral tablet, extended release 100 mg 1 tab, PO, qPM, # 30 tab, 0 Refill(s), Pharmacy: [facility]acy #0621 Start Date: 10/31/17 Status: Ordered [employer] COVID-19 Vaccine 30 mcg/0.3 mL preservative-free intramuscular [...]
--- OUTSIDE RECORDS SUMMARY | 2023-10-06 08:47 | XMS_ITS | Summary of Care ---
Author Organization [facility] Address [address] [place], [place] [id number]- Care Team Providers Care Gluer And Wedger Name Role Phone Lazara Casas DO Primary Care Physician [phone] Encounter [facility] [id number] Date(s): 03/03/20 - 03/03/20 [place] [id number] Encounter Diagnosis Lung cancer(Discharge Diagnosis) - 03/03/20 Discharge Disposition: Home Attending Physician: Jorje TERRAZAS, Lamont Mcallister Problem List Condition Effective Dates Status Health Status Inform ant Essential hypertension(Confirmed) Active Hyperlipemia(Confirmed) Active Urinary urgency due to benig n prostatic hypertrophy(Confirmed) Active Allergies, Adverse Reactions, Alerts No Known Allergies Medications aspirin 81 mg oral delayed release tablet 81 mg 1 tab, PO, daily, # 30 tab, 0 Refill(s), Pharmacy: [facility] #0621 Start Date: 10/31/17 Status: Ordered atorvastatin 40 mg oral tablet 40 mg 1 tab, PO, qPM, # 30 tab, 0 Refill(s), [facility] Start Date: 10/31/17 Status: Ordered chlorthalidone 25 mg oral tablet 25 mg 1 tab, PO, daily, 0 Refill(s) Start Date: 02/25/20 Status: Ordered eplerenone 50 mg oral tablet 50 mg 1 tab, PO, daily, 0 Refill(s) Start Date: 02/25/20 Status: Ordered felodipine 10 mg oral tablet, extended release 10 mg 1 tab, PO, daily, # 30 tab, 0 Refill(s), Pharmacy: [facility]acy #0621 Start Date: 10/31/17 Status: Ordered lisinopril 40 mg oral tablet 40 mg 1 tab, PO, daily, # 30 tab, 0 Refill(s), Pharmacy: [facility] #0621 Start Date: 10/31/17 Status: Ordered Metoprolol Succinate ER 100 mg oral tablet, extended release 100 mg 1 tab, PO, qPM, # 30 tab, 0 Refill(s), Pharmacy: [facility]acy #0621 Start Date: 10/31/17 Status: Ordered tamsulosin 0.4 mg oral capsule 0.4 mg 1 cap, PO, daily, TK 1 C PO QD Start Date: 02/25/20 Status: Ordered Immunizations Given and Recorded Vaccine Date Status Refusal Reason pneumococcal 23-polyvalent vaccine 1 10/31/17 Give n 1Early/Late Reason: Nursing Judgment Social History Social History Type Response
--- OUTSIDE RECORDS SUMMARY | 2023-10-06 08:47 | XMS_ITS | Summary of Care ---
/Man Author Organization [facility] Address [address] [place], [place] [address]- Care Team Providers Care Slash Trimmer Name Role Phone Lazara Casas DO Primary Care Physician [phone] Encounter [facility] [id number] Date(s): 02/08/22 - 02/08/22 [place] [id number] Discharge Disposition: Home Attending Physician: Flaquita Johnson Problem List Condition Effective Dates Status Health [...] daily, # 30 tab, 0 Refill(s), Pharmacy: [facility] #0621 Start Date: 10/31/17 Status: Ordered atorvastatin 40 mg oral tablet 40 mg 1 tab, PO, qPM, # 30 tab, 0 Refill(s), Pharmacy: [facility] #0621 Start Date: 10/31/17 Status: Ordered eplerenone 50 mg oral tablet 50 mg 1 tab, PO, daily, 0 Refill(s) Start Date: 02/25/20 Status: Ordered felodipine 10 mg oral tablet, extended release 10 mg 1 tab, PO, daily, # 30 tab, 0 Refill(s), Pharmacy: [facility] #[facility]21 Start Date: 10/31/17 Status: Ordered levothyroxine 100 mcg (0.1 mg) oral tablet 100 mcg 1 tab, PO, daily, # 30 tab, 0 Refill(s) Start Date: 07/28/21 Status: Ordered lisinopril 40 mg oral tablet 40 mg 1 tab, PO, daily, # 30 tab, 0 Refill(s), [facility] Start Date: 10/31/17 Status: Ordered metFORMIN 500 mg oral tablet 500 mg 1 tab, PO, BID, # 60 tab, 0 Refill(s) Start Date: 07/28/21 Status: Ordered Metoprolol Succinate ER 100 mg oral tablet, extended release 100 mg 1 tab, PO, qPM, # 30 tab, 0 Refill(s), [facility] Start Date: 10/31/17 Status: Ordered omeprazole 40 mg oral delayed release capsule 40 mg 1 cap, PO, daily, # 30 cap, 0 Refill(s) Start Date: 07/28/21 Status: Ordered [employer] COVID-19 Vaccine 30 mcg/0.3 mL preservative-free intramuscular suspension 30 mcg 0.3 mL, IM, once, 0 Refill(s) Start Date: 04/28/20 Status: Ordered tamsulosin 0.4 mg oral capsule 0.4 mg 1 cap, PO, daily, TK 1 C PO QD Start Date: 02/25/20 Status: Ordered Immunizations Given and Recorded Vaccine Date Status Refusal Reason SARS-CoV-2 mRNA (tozinameran) vaccine 05/19/20 Rec orded pneumococcal 23-polyvalent vaccine 1 10/31/17 Give n 1Early/Late Reason: Nursing Judgment Social History Social History Type Response
--- OUTSIDE RECORDS SUMMARY | 2023-10-06 08:47 | XMS_ITS | Summary of Care ---
/Man Author Organization [facility] Address [address] [place], [place] [address]- Care Team Providers Care Slag Expander Name Role Phone Lazara Casas DO Primary Care Physician Encounter [facility] [id number] Date(s): 08/29/20 - 08/29/20 [place] [id number] Discharge Disposition: Home Attending Physician: Joselyn TERRAZAS, Selvin Harrison Problem List Condition Effective Dates Status Health [...] daily, # 30 tab, 0 Refill(s), [facility]acy: [facility] Start Date: 10/31/17 Status: Ordered atorvastatin 40 mg oral tablet 40 mg 1 tab, PO, qPM, # 30 tab, 0 Refill(s), Pharmacy: [facility] #0621 Start Date: 10/31/17 Status: Ordered chlorthalidone 25 mg oral tablet 25 mg 1 tab, PO, daily, 0 Refill(s) Start Date: 02/25/20 Status: Ordered Compazine 10 mg oral tablet 10 mg 1 tab, PO, q6hr, PRN Nausea/Vomiting, # 30 tab, 2 Refill(s), Pharmacy: [facility] #[id number], 180.34, cm, 03/21/20 10:24:00 EST, Height, 132, kg, 03/21/20 10:24:00 EST, Actual Weight Start Date: 03/21/20 Status: Ordered dexamethasone 4 mg oral tablet 4 mg 1 tab, PO, BID, for 3 days starting the day before chemo, # 30 tab, 0 Refill(s), Pharmacy: [facility] #[id number], 180.34, cm, 03/21/20 10:24:00 EST, Height, 132, kg, 03/21/20 10:24:00 EST,Actual Weight Start Date: 03/21/20 Status: Ordered eplerenone 50 mg oral tablet 50 mg 1 tab, PO, daily, 0 Refill(s) Start Date: 02/25/20 Status: Ordered felodipine 10 mg oral tablet, extended release 10 mg 1 tab, PO, daily, # 30 tab, 0 Refill(s), [facility] Start Date: 10/31/17 Status: Ordered folic acid 1 mg oral tablet 1 mg 1 tab, PO, daily, Take once daily starting 5 - 7 days before chemotherapy., # 30 tab, 5 Refill(s), Pharmacy: [facility] #[id number], 180.34, cm, 03/21/20 10:24:00 EST, Height, 132, kg, 03/21/20 10:24:00 EST, Actual Weight Start Date: 03/21/20 Status: Ordered lisinopril 40 mg oral tablet 40 mg 1 tab, PO, daily, # 30 tab, 0 Refill(s), [facility] Start Date: 10/31/17 Status: Ordered Metoprolol Succinate ER 100 mg oral tablet, extended release 100 mg 1 tab, PO, qPM, # 30 tab, 0 Refill(s), [facility] Start Date: 10/31/17 Status: Ordered ondansetron 4 mg oral tablet 4 mg 1 tab, PO, q8hr, PRN nausea/vomiting, # 20 tab, 2 Refill(s), Pharmacy: [facility] #[id number], 180.34, cm, 03/21/20 10:24:00 EST, Height, 132, kg, 03/21/20 10:24:00 EST, Actual Weight Start Date: 03/21/20 Status: Ordered [employer] COVID-19 Vaccine 30 mcg/0.3 mL preservative-free intramuscular [...]
--- OUTSIDE RECORDS SUMMARY | 2023-10-06 08:47 | XMS_ITS | Summary of Care ---
Author Organization Address [address] [place], [place] [address]- Care Team Providers Care Gardening Instructor Name Role Phone Lazara Casas DO Primary Care Physician [phone] Encounter [facility] [id number] Date(s): 04/17/20 - 04/17/20 [place] [id number] Discharge Disposition: Home Attending Physician: [...] daily, # 30 tab, 0 Refill(s), Pharmacy: [facility] #0621 Start Date: 10/31/17 Status: Ordered atorvastatin 40 mg oral tablet 40 mg 1 tab, PO, qPM, # 30 tab, 0 Refill(s), [facility] Start Date: 10/31/17 Status: Ordered chlorthalidone 25 mg oral tablet 25 mg 1 tab, PO, daily, 0 Refill(s) Start Date: 02/25/20 Status: Ordered Compazine 10 mg oral tablet 10 mg 1 tab, PO, q6hr, PRN Nausea/Vomiting, # 30 tab, 2 Refill(s), Pharmacy: [facility] #[id number], 180.34, cm, 03/21/20 10:24:00 EST, Height, 132, kg, 03/21/20 10:24:00 EST, Actual Weight Start Date: 03/21/20 Status: Ordered dexamethasone 4 mg oral tablet 4 mg 1 tab, PO, BID, for 3 days starting the day before chemo, # 30 tab, 0 Refill(s), Pharmacy: [facility] #[id number], 180.34, cm, 03/21/20 10:24:00 EST, Height, 132, kg, 03/21/20 10:24:00 EST,Actual Weight Start Date: 03/21/20 Status: Ordered eplerenone 50 mg oral tablet 50 mg 1 tab, PO, daily, 0 Refill(s) Start Date: 02/25/20 Status: Ordered felodipine 10 mg oral tablet, extended release 10 mg 1 tab, PO, daily, # 30 tab, 0 Refill(s), [facility] Start Date: 10/31/17 Status: Ordered folic acid 1 mg oral tablet 1 mg 1 tab, PO, daily, Take once daily starting 5 - 7 days before chemotherapy., # 30 tab, 5 Refill(s), Pharmacy: [facility] #[id number], 180.34, cm, 03/21/20 10:24:00 EST, Height, 132, kg, 03/21/20 10:24:00 EST, Actual Weight Start Date: 03/21/20 Status: Ordered lisinopril 40 mg oral tablet 40 mg 1 tab, PO, daily, # 30 tab, 0 Refill(s), [facility] Start Date: 10/31/17 Status: Ordered Metoprolol Succinate ER 100 mg oral tablet, extended release 100 mg 1 tab, PO, qPM, # 30 tab, 0 Refill(s), [facility] Start Date: 10/31/17 Status: Ordered ondansetron 4 mg oral tablet 4 mg 1 tab, PO, q8hr, PRN nausea/vomiting, # 20 tab, 2 Refill(s), Pharmacy: [facility] #[id number], 180.34, cm, 03/21/20 10:24:00 EST, Height, 132, [...]
--- OUTSIDE RECORDS SUMMARY | 2023-10-06 08:47 | XMS_ITS | Summary of Care ---
/Man Author Organization [facility] Address [address] [id number]- Care Team Providers Care Event Services Manager Name Role Phone Lazara Casas DO Primary Care Physician Encounter [facility] [id number] Date(s): 08/03/21 - 08/03/21 [place] [id number] Discharge Disposition: Home Attending Physician: Jorje TERRAZAS, [...] daily, # 30 tab, 0 Refill(s), Pharmacy: [facility] Start Date: 10/31/17 Status: Ordered atorvastatin 40 mg oral tablet 40 mg 1 tab, PO, qPM, # 30 tab, 0 Refill(s), Pharmacy: [facility] #0621 Start Date: 10/31/17 Status: Ordered eplerenone 50 mg oral tablet 50 mg 1 tab, PO, daily, 0 Refill(s) Start Date: 02/25/20 Status: Ordered felodipine 10 mg oral tablet, extended release 10 mg 1 tab, PO, daily, # 30 tab, 0 Refill(s), [facility] Start Date: 10/31/17 Status: Ordered levothyroxine 100 mcg (0.1 mg) oral tablet 100 mcg 1 tab, PO, daily, # 30 tab, 0 Refill(s) Start Date: 07/28/21 Status: Ordered lisinopril 40 mg oral tablet 40 mg 1 tab, PO, daily, # 30 tab, 0 Refill(s), [facility] Start Date: 10/31/17 Status: Ordered metFORMIN 500 mg oral tablet 500 mg 1 tab, PO, BID, # 60 tab, 0 Refill(s) Start Date: 07/28/21 Status: Ordered Metoprolol Succinate ER 100 mg oral tablet, extended release 100 mg 1 tab, PO, qPM, # 30 tab, 0 Refill(s), Pharmacy: [facility] #0621 Start Date: 10/31/17 Status: Ordered omeprazole 40 mg oral delayed release capsule 40 mg 1 cap, PO, daily, # 30 cap, 0 Refill(s) Start Date: 07/28/21 Status: Ordered [employer] COVID-19 Vaccine 30 mcg/0.3 mL preservative-free intramuscular [...]
--- OUTSIDE RECORDS SUMMARY | 2023-10-06 08:47 | XMS_ITS | Summary of Care ---
/Man Author Organization [facility] Address [address] [place], [place] [address]- Care Team Providers Care Film Processing Supervisor Name Role Phone Lazara Casas DO Primary Care Physician [phone] Encounter [facility] [id number] Date(s): 07/04/20 - 07/04/20 [place] [id number] Discharge Disposition: Home Attending Physician: Selvin Alves MD Referring Physician: Charmaine Perez MD Problem List Condition [...] daily, # 30 tab, 0 Refill(s), [facility]: [facility] Start Date: 10/31/17 Status: Ordered atorvastatin 40 mg oral tablet 40 mg 1 tab, PO, qPM, # 30 tab, 0 Refill(s), [facility]: [facility] Start Date: 10/31/17 Status: Ordered chlorthalidone 25 mg oral tablet 25 mg 1 tab, PO, daily, 0 Refill(s) Start Date: 02/25/20 Status: Ordered Compazine 10 mg oral tablet 10 mg 1 tab, PO, q6hr, PRN Nausea/Vomiting, # 30 tab, 2 Refill(s), Pharmacy: [facility] #[id number], 180.34, cm, 03/21/20 10:24:00 EST, Height, 132, kg, 03/21/20 10:24:00 EST, Actual Weight Start Date: 03/21/20 Status: Ordered dexamethasone 4 mg oral tablet 4 mg 1 tab, PO, BID, for 3 days starting the day before chemo, # 30 tab, 0 Refill(s), Pharmacy: [facility] #[id number], 180.34, cm, 03/21/20 10:24:00 EST, Height, 132, kg, 03/21/20 10:24:00 EST,Actual Weight Start Date: 03/21/20 Status: Ordered eplerenone 50 mg oral tablet 50 mg 1 tab, PO, daily, 0 Refill(s) Start Date: 02/25/20 Status: Ordered felodipine 10 mg oral tablet, extended release 10 mg 1 tab, PO, daily, # 30 tab, 0 Refill(s), [facility] Start Date: 10/31/17 Status: Ordered folic acid 1 mg oral tablet 1 mg 1 tab, PO, daily, Take once daily starting 5 - 7 days before chemotherapy., # 30 tab, 5 Refill(s), Pharmacy: [facility] #[id number], 180.34, cm, 03/21/20 10:24:00 EST, Height, 132, kg, 03/21/20 10:24:00 EST, Actual Weight Start Date: 03/21/20 Status: Ordered lisinopril 40 mg oral tablet 40 mg 1 tab, PO, daily, # 30 tab, 0 Refill(s), Pharmacy: [facility] #0621 Start Date: 10/31/17 Status: Ordered Metoprolol Succinate ER 100 mg oral tablet, extended release 100 mg 1 tab, PO, qPM, # 30 tab, 0 Refill(s), Pharmacy: [facility] #0621 Start Date: 10/31/17 Status: Ordered ondansetron 4 mg oral tablet 4 mg 1 tab, PO, q8hr, PRN nausea/vomiting, # 20 tab, 2 Refill(s), Pharmacy: [facility] #[id number], 180.34, cm, 03/21/20 10:24:00 EST, Height, 132, kg, 03/21/20 10:24:00 EST, Actual Weight Start Date: 03/21/20 Status: Ordered RingDNA COVID-19 Vaccine 30 mcg/0.3 mL preservative-free intramuscular [...]
--- OUTSIDE RECORDS SUMMARY | 2023-10-06 08:47 | XMS_ITS | Summary of Care ---
Author Organization [facility] Address [address] [place], [place] [address]- Care Team Providers Care Quality Compliance Consultant Name Role Phone Lazara Casas DO Primary Care Physician [phone] Encounter [facility] [id number] Date(s): 02/05/20 - 02/05/20 [place] [id number] Discharge Disposition: Acute Care Hospital Attending Physician: Axel Ponce MD Referring Physician: Flaquita Johnson Problem List Condition Effective Dates Status Health Status Inform ant Essential hypertension(Confirmed) Active Hyperlipemia(Confirmed) Active Urinary urgency due to benig n prostatic hypertrophy(Confirmed) Active Allergies, Adverse Reactions, Alerts No Known Allergies Medications aspirin 81 mg oral delayed release tablet 81 mg 1 tab, PO, daily, # 30 tab, 0 Refill(s), [facility] Start Date: 10/31/17 Status: Ordered atorvastatin 40 mg oral tablet 40 mg 1 tab, PO, qPM, # 30 tab, 0 Refill(s), [facility] Start Date: 10/31/17 Status: Ordered chlorthalidone 25 mg oral tablet 50 mg 2 tab, PO, daily, # 30 tab, 0 Refill(s), [facility] Start Date: 10/31/17 Status: Ordered felodipine 10 mg oral tablet, extended release 10 mg 1 tab, PO, daily, # 30 tab, 0 Refill(s), [facility] Start Date: 10/31/17 Status: Ordered lisinopril 40 mg oral tablet 40 mg 1 tab, PO, daily, # 30 tab, 0 Refill(s), [facility]acy: [facility] Start Date: 10/31/17 Status: Ordered Metoprolol Succinate ER 100 mg oral tablet, extended release 100 mg 1 tab, PO, qPM, # 30 tab, 0 Refill(s), [facility] Start Date: 10/31/17 Status: Ordered Immunizations Given and Recorded Vaccine Date Status Refusal Reason pneumococcal 23-polyvalent vaccine 1 10/31/17 Give n 1Early/Late Reason: Nursing Judgment Social History Social History Type Response
--- OUTSIDE RECORDS SUMMARY | 2023-10-06 08:47 | XMS_ITS | Summary of Care ---
Author Organization [facility] Address [address] [place], [place] [address]- Care Team Providers Care Business Data Analyst Name Role Phone Lazara Casas DO Primary Care Physician [phone] Encounter [facility] [id number] Date(s): 06/05/20 - 06/05/20 [place] [id number] Discharge Disposition: Home Attending Physician: Charmaine Perez [...] daily, # 30 tab, 0 Refill(s), Pharmacy: [facility] #0621 Start Date: 10/31/17 Status: Ordered atorvastatin 40 mg oral tablet 40 mg 1 tab, PO, qPM, # 30 tab, 0 Refill(s), [facility] Start Date: 10/31/17 Status: Ordered chlorthalidone 25 mg oral tablet 25 mg 1 tab, PO, daily, 0 Refill(s) Start Date: 02/25/20 Status: Ordered Compazine 10 mg oral tablet 10 mg 1 tab, PO, q6hr, PRN Nausea/Vomiting, # 30 tab, 2 Refill(s), Pharmacy: [facility] #[id number], 180.34, cm, 03/21/20 10:24:00 EST, Height, 132, kg, 03/21/20 10:24:00 EST, Actual Weight Start Date: 03/21/20 Status: Ordered dexamethasone 4 mg oral tablet 4 mg 1 tab, PO, BID, for 3 days starting the day before chemo, # 30 tab, 0 Refill(s), Pharmacy: [facility] #[id number], 180.34, cm, 03/21/20 10:24:00 EST, Height, 132, kg, 03/21/20 10:24:00 EST,Actual Weight Start Date: 03/21/20 Status: Ordered eplerenone 50 mg oral tablet 50 mg 1 tab, PO, daily, 0 Refill(s) Start Date: 02/25/20 Status: Ordered felodipine 10 mg oral tablet, extended release 10 mg 1 tab, PO, daily, # 30 tab, 0 Refill(s), [facility] Start Date: 10/31/17 Status: Ordered folic acid 1 mg oral tablet 1 mg 1 tab, PO, daily, Take once daily starting 5 - 7 days before chemotherapy., # 30 tab, 5 Refill(s), Pharmacy: [facility] #[id number], 180.34, cm, 03/21/20 10:24:00 EST, Height, 132, kg, 03/21/20 10:24:00 EST, Actual Weight Start Date: 03/21/20 Status: Ordered lisinopril 40 mg oral tablet 40 mg 1 tab, PO, daily, # 30 tab, 0 Refill(s), [facility] Start Date: 10/31/17 Status: Ordered Metoprolol Succinate ER 100 mg oral tablet, extended release 100 mg 1 tab, PO, qPM, # 30 tab, 0 Refill(s), [facility] Start Date: 10/31/17 Status: Ordered ondansetron 4 mg oral tablet 4 mg 1 tab, PO, q8hr, PRN nausea/vomiting, # 20 tab, 2 Refill(s), Pharmacy: [facility] #[id number], 180.34, cm, 03/21/20 10:24:00 EST, Height, 132, kg, 03/21/20 10:24:00 EST, Actual Weight Start Date: 03/21/20 Status: Ordered [address] COVID-19 Vaccine 30 mcg/0.3 mL preservative-free intramuscular [...]
--- OUTSIDE RECORDS SUMMARY | 2023-10-06 08:47 | XMS_ITS | Summary of Care ---
/Man Author Organization [facility] Address [address] [place], [place] [address]- Care Team Providers Care Java Systems Analyst Name Role Phone Lazara Casas DO Primary Care Physician Encounter [facility] [id number] Date(s): 08/15/20 - 08/15/20 [place] [id number] Discharge Disposition: Home Attending Physician: Selvin Alves [...] daily, # 30 tab, 0 Refill(s), [facility] Start Date: 10/31/17 Status: Ordered atorvastatin 40 mg oral tablet 40 mg 1 tab, PO, qPM, # 30 tab, 0 Refill(s), Pharmacy: [facility] #0621 Start Date: 10/31/17 Status: Ordered chlorthalidone 25 mg oral tablet 25 mg 1 tab, PO, daily, 0 Refill(s) Start Date: 02/25/20 Status: Ordered Compazine 10 mg oral tablet 10 mg 1 tab, PO, q6hr, PRN Nausea/Vomiting, # 30 tab, 2 Refill(s), Pharmacy: [facility] #[id number], 180.34, cm, 03/21/20 10:24:00 EST, Height, 132, kg, 03/21/20 10:24:00 EST, Actual Weight Start Date: 03/21/20 Status: Ordered dexamethasone 4 mg oral tablet 4 mg 1 tab, PO, BID, for 3 days starting the day before chemo, # 30 tab, 0 Refill(s), Pharmacy: [facility] #[id number], 180.34, cm, 03/21/20 10:24:00 EST, Height, 132, kg, 03/21/20 10:24:00 EST,Actual Weight Start Date: 03/21/20 Status: Ordered eplerenone 50 mg oral tablet 50 mg 1 tab, PO, daily, 0 Refill(s) Start Date: 02/25/20 Status: Ordered felodipine 10 mg oral tablet, extended release 10 mg 1 tab, PO, daily, # 30 tab, 0 Refill(s), [facility] Start Date: 10/31/17 Status: Ordered folic acid 1 mg oral tablet 1 mg 1 tab, PO, daily, Take once daily starting 5 - 7 days before chemotherapy., # 30 tab, 5 Refill(s), Pharmacy: [facility] #[id number], 180.34, cm, 03/21/20 10:24:00 EST, Height, 132, kg, 03/21/20 10:24:00 EST, Actual Weight Start Date: 03/21/20 Status: Ordered lisinopril 40 mg oral tablet 40 mg 1 tab, PO, daily, # 30 tab, 0 Refill(s), [facility] Start Date: 10/31/17 Status: Ordered Metoprolol Succinate ER 100 mg oral tablet, extended release 100 mg 1 tab, PO, qPM, # 30 tab, 0 Refill(s), [facility] Start Date: 10/31/17 Status: Ordered ondansetron 4 mg oral tablet 4 mg 1 tab, PO, q8hr, PRN nausea/vomiting, # 20 tab, 2 Refill(s), Pharmacy: [facility] #[id number], 180.34, cm, 03/21/20 10:24:00 EST, Height, 132, [...]
--- OUTSIDE RECORDS SUMMARY | 2023-10-06 08:47 | XMS_ITS | Summary of Care ---
Author Organization [facility] Address [address] [place], [place] [address]- Care Team Providers Care Copyholder Name Role Phone Lazara Casas DO Primary Care Physician [phone] Encounter [facility] [id number] Date(s): 05/08/20 - 05/08/20 [place] [id number] Discharge Disposition: Home Attending [...] daily, # 30 tab, 0 Refill(s), Pharmacy: [facility] #0621 Start Date: 10/31/17 Status: Ordered atorvastatin 40 mg oral tablet 40 mg 1 tab, PO, qPM, # 30 tab, 0 Refill(s), [facility] Start Date: 10/31/17 Status: Ordered chlorthalidone 25 mg oral tablet 25 mg 1 tab, PO, daily, 0 Refill(s) Start Date: 02/25/20 Status: Ordered Compazine 10 mg oral tablet 10 mg 1 tab, PO, q6hr, PRN Nausea/Vomiting, # 30 tab, 2 Refill(s), Pharm[facility]: [facility] #[id number], 180.34, cm, 03/21/20 10:24:00 EST, Height, 132, kg, 03/21/20 10:24:00 EST, Actual Weight Start Date: 03/21/20 Status: Ordered dexamethasone 4 mg oral tablet 4 mg 1 tab, PO, BID, for 3 days starting the day before chemo, # 30 tab, 0 Refill(s), Pharmacy: [facility] #[id number], 180.34, cm, 03/21/20 10:24:00 EST, Height, 132, kg, 03/21/20 10:24:00 EST,Actual Weight Start Date: 03/21/20 Status: Ordered eplerenone 50 mg oral tablet 50 mg 1 tab, PO, daily, 0 Refill(s) Start Date: 02/25/20 Status: Ordered felodipine 10 mg oral tablet, extended release 10 mg 1 tab, PO, daily, # 30 tab, 0 Refill(s), [facility] Start Date: 10/31/17 Status: Ordered folic acid 1 mg oral tablet 1 mg 1 tab, PO, daily, Take once daily starting 5 - 7 days before chemotherapy., # 30 tab, 5 Refill(s), Pharmacy: [facility] #[id number], 180.34, cm, 03/21/20 10:24:00 EST, Height, 132, kg, 03/21/20 10:24:00 EST, Actual Weight Start Date: 03/21/20 Status: Ordered lisinopril 40 mg oral tablet 40 mg 1 tab, PO, daily, # 30 tab, 0 Refill(s), [facility] Start Date: 10/31/17 Status: Ordered Metoprolol Succinate ER 100 mg oral tablet, extended release 100 mg 1 tab, PO, qPM, # 30 tab, 0 Refill(s), [facility] Start Date: 10/31/17 Status: Ordered ondansetron 4 mg oral tablet 4 mg 1 tab, PO, q8hr, PRN nausea/vomiting, # 20 tab, 2 Refill(s), Pharmacy: [facility] #[id number], 180.34, cm, 03/21/20 10:24:00 EST, Height, 132, [...]
--- OUTSIDE RECORDS SUMMARY | 2023-10-06 08:47 | XMS_ITS | Summary of Care ---
/Man Author Organization [facility] Address [address] [place], [place] [address]- Care Team Providers Care Printing Bindery Assistant Name Role Phone Lazara Casas DO Primary Care Physician Encounter [facility] [id number] Date(s): 08/03/21 - 08/03/21 [place] [id number] Discharge Disposition: [...] daily, # 30 tab, 0 Refill(s), [facility]acy: [facility] #06[facility] Start Date: 10/31/17 Status: Ordered atorvastatin 40 mg oral tablet 40 mg 1 tab, PO, qPM, # 30 tab, 0 Refill(s), Pharmacy: [facility] #0621 Start Date: 10/31/17 Status: Ordered eplerenone 50 mg oral tablet 50 mg 1 tab, PO, daily, 0 Refill(s) Start Date: 02/25/20 Status: Ordered felodipine 10 mg oral tablet, extended release 10 mg 1 tab, PO, daily, # 30 tab, 0 Refill(s), Pharmacy: [facility] #0621 Start Date: 10/31/17 Status: Ordered levothyroxine 100 mcg (0.1 mg) oral tablet 100 mcg 1 tab, PO, daily, # 30 tab, 0 Refill(s) Start Date: 07/28/21 Status: Ordered lisinopril 40 mg oral tablet 40 mg 1 tab, PO, daily, # 30 tab, 0 Refill(s), [facility] Start Date: 10/31/17 Status: Ordered metFORMIN 500 mg oral tablet 500 mg 1 tab, PO, BID, # 60 tab, 0 Refill(s) Start Date: 07/28/21 Status: Ordered Metoprolol Succinate ER 100 mg oral tablet, extended release 100 mg 1 tab, PO, qPM, # 30 tab, 0 Refill(s), [facility] Start Date: 10/31/17 Status: Ordered omeprazole 40 mg oral delayed release capsule 40 mg 1 cap, PO, daily, # 30 cap, 0 Refill(s) Start Date: 07/28/21 Status: Ordered [employer] COVID-19 Vaccine 30 mcg/0.3 mL preservative-free intramuscular [...]
--- OUTSIDE RECORDS SUMMARY | 2023-10-06 08:47 | XMS_ITS | Summary of Care ---
/Man Author Organization [facility] Address [address] [id number]- Care Team Providers Care Deaf And Hard Of Hearing Teacher Name Role Phone Lazara Casas DO Primary Care Physician Encounter [facility] [id number] Date(s): 07/28/23 - 07/29/23 [place] [id number] Discharge Disposition: Home Attending Physician: Heriberto Beasley MD Problem List Condition Confirmation Course Effective Dates [...] Wheezing, # 18 g, 0 Refill(s), Pharmacy: [facility] #[id number], 182, cm, 03/04/22 16:37:00 EST, Height, 115.7, [...]
--- OUTSIDE RECORDS SUMMARY | 2023-10-06 08:47 | XMS_ITS | Summary of Care ---
/Man Author Organization [facility] Address [address] [place] [address]- Care Team Providers Care Air Hammer Stripper Name Role Phone Lazara Casas DO Primary Care Physician Encounter [facility] [id number] Date(s): 07/28/21 - 07/28/[address] [address] Discharge Disposition: Home Attending Physician: Charmaine [...] daily, # 30 tab, 0 Refill(s), [facility] Start Date: 10/31/17 Status: Ordered atorvastatin 40 mg oral tablet 40 mg 1 tab, PO, qPM, # 30 tab, 0 Refill(s), [facility] Start Date: 10/31/17 Status: Ordered eplerenone [...] 30 tab, 0 Refill(s), [facility] Start Date: 10/31/17 Status: Ordered metFORMIN 500 mg oral tablet 500 mg 1 tab, PO, BID, # 60 tab, 0 Refill(s) Start Date: 07/28/21 Status: Ordered Metoprolol Succinate ER 100 mg oral tablet, extended release 100 mg 1 tab, PO, qPM, # 30 tab, 0 Refill(s), [facility] Start Date: 10/31/17 Status: Ordered omeprazole 40 mg oral delayed release capsule 40 mg 1 cap, PO, daily, # 30 cap, 0 Refill(s) Start Date: 07/28/21 Status: Ordered [employer] COVID-19 Vaccine 30 mcg/0.3 mL preservative-free intramuscular [...]
--- OUTSIDE RECORDS SUMMARY | 2023-10-06 08:47 | XMS_ITS | Summary of Care ---
/Man Author Organization [facility] Address [address] [place], [place] [address]- Care Team Providers Care Instrumental Music Teacher Name Role Phone Lazara Casas DO Primary Care Physician Encounter [facility] [id number] Date(s): 08/14/20 - 08/14/20 [place] [id number] Discharge Disposition: Home Attending Physician: Joselyn TERRAZAS, [...] daily, # 30 tab, 0 Refill(s), Pharmacy: [facility] #0621 Start Date: 10/31/17 Status: Ordered atorvastatin 40 mg oral tablet 40 mg 1 tab, PO, qPM, # 30 tab, 0 Refill(s), Pharmacy: [facility] #0621 Start Date: 10/31/17 Status: Ordered chlorthalidone 25 mg oral tablet 25 mg 1 tab, PO, daily, 0 Refill(s) Start Date: 02/25/20 Status: Ordered Compazine 10 mg oral tablet 10 mg 1 tab, PO, q6hr, PRN Nausea/Vomiting, # 30 tab, 2 Refill(s), Pharmacy: [facility] #[id number], 180.34, cm, 03/21/20 10:24:00 EST, Height, 132, kg, 03/21/20 10:24:00 EST, Actual Weight Start Date: 03/21/20 Status: Ordered dexamethasone 4 mg oral tablet 4 mg 1 tab, PO, BID, for 3 days starting the day before chemo, # 30 tab, 0 Refill(s), Pharmacy: [facility] #[id number], 180.34, cm, 03/21/20 10:24:00 EST, Height, 132, kg, 03/21/20 10:24:00 EST,Actual Weight Start Date: 03/21/20 Status: Ordered eplerenone 50 mg oral tablet 50 mg 1 tab, PO, daily, 0 Refill(s) Start Date: 02/25/20 Status: Ordered felodipine 10 mg oral tablet, extended release 10 mg 1 tab, PO, daily, # 30 tab, 0 Refill(s), [facility] Start Date: 10/31/17 Status: Ordered folic acid 1 mg oral tablet 1 mg 1 tab, PO, daily, Take once daily starting 5 - 7 days before chemotherapy., # 30 tab, 5 Refill(s), Pharmacy: [facility] #[id number], 180.34, cm, 03/21/20 10:24:00 EST, Height, 132, kg, 03/21/20 10:24:00 EST, Actual Weight Start Date: 03/21/20 Status: Ordered lisinopril 40 mg oral tablet 40 mg 1 tab, PO, daily, # 30 tab, 0 Refill(s), [facility] Start Date: 10/31/17 Status: Ordered Metoprolol Succinate ER 100 mg oral tablet, extended release 100 mg 1 tab, PO, qPM, # 30 tab, 0 Refill(s), [facility] Start Date: 10/31/17 Status: Ordered ondansetron 4 mg oral tablet 4 mg 1 tab, PO, q8hr, PRN nausea/vomiting, # 20 tab, 2 Refill(s), Pharmacy: [facility] #[id number], 180.34, cm, 03/21/20 10:24:00 EST, Height, 132, kg, 03/21/20 10:24:00 EST, Actual Weight Start Date: 03/21/20 Status: Ordered Regen COVID-19 Vaccine 30 mcg/0.3 mL preservative-free intramuscular [...]
--- OUTSIDE RECORDS SUMMARY | 2023-10-06 08:47 | XMS_ITS | Summary of Care ---
Author Organization [facility] Address [address] [place], [place] [address]- Care Team Providers Care International Trade Analyst Name Role Phone Lazara Casas DO Primary Care Physician Encounter [facility] [id number] Date(s): 05/08/20 - 05/08/20 [place] [id number] Discharge Disposition: Home Attending [...] daily, # 30 tab, 0 Refill(s), Pharmacy: [facility] #[id number] Start Date: 10/31/17 Status: Ordered atorvastatin 40 mg oral tablet 40 mg 1 tab, PO, qPM, # 30 tab, 0 Refill(s), [facility] Start Date: 10/31/17 Status: Ordered chlorthalidone 25 mg oral tablet 25 mg 1 tab, PO, daily, 0 Refill(s) Start Date: 02/25/20 Status: Ordered Compazine 10 mg oral tablet 10 mg 1 tab, PO, q6hr, PRN Nausea/Vomiting, # 30 tab, 2 Refill(s), Pharmacy: [facility] #[id number], 180.34, cm, 03/21/20 10:24:00 EST, Height, 132, kg, 03/21/20 10:24:00 EST, Actual Weight Start Date: 03/21/20 Status: Ordered dexamethasone 4 mg oral tablet 4 mg 1 tab, PO, BID, for 3 days starting the day before chemo, # 30 tab, 0 Refill(s), Pharmacy: [facility] #[id number], 180.34, cm, 03/21/20 10:24:00 EST, Height, 132, [...] chemotherapy., # 30 tab, 5 Refill(s), Pharmacy: [facility] #[id number], 180.34, cm, 03/21/20 10:24:00 EST, Height, 132, [...] qPM, # 30 tab, 0 Refill(s), [facility] Start Date: 10/31/17 Status: Ordered ondansetron 4 mg oral tablet 4 mg 1 tab, PO, q8hr, PRN nausea/vomiting, # 20 tab, 2 Refill(s), Pharmacy: [facility] #[id number], 180.34, cm, 03/21/20 10:24:00 EST, Height, 132, [...]
--- OUTSIDE RECORDS SUMMARY | 2023-10-06 08:47 | XMS_ITS | Summary of Care ---
Author Organization [facility] Address [address] [place], [place] [address]- Care Team Providers Care Golf Cart Attendant Name Role Phone Lazara Casas DO Primary Care Physician Encounter [facility] [id number] Date(s): 03/21/20 - 03/21/20 [place] [id number] Discharge Disposition: Home [...] daily, # 30 tab, 0 Refill(s), Pharmacy: [facility] #0621 Start Date: 10/31/17 Status: Ordered atorvastatin 40 mg oral tablet 40 mg 1 tab, PO, qPM, # 30 tab, 0 Refill(s), [facility] Start Date: 10/31/17 Status: Ordered chlorthalidone 25 mg oral tablet 25 mg 1 tab, PO, daily, 0 Refill(s) Start Date: 02/25/20 Status: Ordered Compazine 10 mg oral tablet 10 mg 1 tab, PO, q6hr, PRN Nausea/Vomiting, # 30 tab, 2 Refill(s), Pharmacy: [facility] #[id number], 180.34, cm, 03/21/20 10:24:00 EST, Height, 132, kg, 03/21/20 10:24:00 EST, Actual Weight Start Date: 03/21/20 Status: Ordered dexamethasone 4 mg oral tablet 4 mg 1 tab, PO, BID, for 3 days starting the day before chemo, # 30 tab, 0 Refill(s), Pharmacy: [facility] #[id number], 180.34, cm, 03/21/20 10:24:00 EST, Height, 132, kg, 03/21/20 10:24:00 EST,Actual Weight Start Date: 03/21/20 Status: Ordered eplerenone 50 mg oral tablet 50 mg 1 tab, PO, daily, 0 Refill(s) Start Date: 02/25/20 Status: Ordered felodipine 10 mg oral tablet, extended release 10 mg 1 tab, PO, daily, # 30 tab, 0 Refill(s), [facility] Start Date: 10/31/17 Status: Ordered folic acid 1 mg oral tablet 1 mg 1 tab, PO, daily, Take once daily starting 5 - 7 days before chemotherapy., # 30 tab, 5 Refill(s), Pharmacy: [facility] #[id number], 180.34, cm, 03/21/20 10:24:00 EST, Height, 132, kg, 03/21/20 10:24:00 EST, Actual Weight Start Date: 03/21/20 Status: Ordered lisinopril 40 mg oral tablet 40 mg 1 tab, PO, daily, # 30 tab, 0 Refill(s), [facility] Start Date: 10/31/17 Status: Ordered Metoprolol Succinate ER 100 mg oral tablet, extended release 100 mg 1 tab, PO, qPM, # 30 tab, 0 Refill(s), [facility] Start Date: 10/31/17 Status: Ordered ondansetron 4 mg oral tablet 4 mg 1 tab, PO, q8hr, PRN nausea/vomiting, # 20 tab, 2 Refill(s), Pharmacy: [facility] #[id number], 180.34, cm, 03/21/20 10:24:00 EST, Height, 132, [...]
--- OUTSIDE RECORDS SUMMARY | 2023-10-06 08:47 | XMS_ITS | Summary of Care ---
Author Organization [facility] Address [address] [id number]- Care Team Providers Care Hide Paster Name Role Phone Lazara Casas DO Primary Care Physician Encounter [facility] [id number] Date(s): 05/29/20 - 05/30/20 [facility] - [facility] [address] [place], [place] [address]- [facility] Discharge Disposition: Home Attending Physician: Charmaine [...] daily, # 30 tab, 0 Refill(s), Pharmacy: [facility] #0621 Start Date: 10/31/17 Status: Ordered atorvastatin 40 mg oral tablet 40 mg 1 tab, PO, qPM, # 30 tab, 0 Refill(s), [facility]: [facility] #[facility] Start Date: 10/31/17 Status: Ordered chlorthalidone 25 mg oral tablet 25 mg 1 tab, PO, daily, 0 Refill(s) Start Date: 02/25/20 Status: Ordered Compazine 10 mg oral tablet 10 mg 1 tab, PO, q6hr, PRN Nausea/Vomiting, # 30 tab, 2 Refill(s), Pharmacy: [facility] #[id number], 180.34, cm, 03/21/20 10:24:00 EST, Height, 132, kg, 03/21/20 10:24:00 EST, Actual Weight Start Date: 03/21/20 Status: Ordered dexamethasone 4 mg oral tablet 4 mg 1 tab, PO, BID, for 3 days starting the day before chemo, # 30 tab, 0 Refill(s), Pharmacy: [facility] #[id number], 180.34, cm, 03/21/20 10:24:00 EST, Height, 132, kg, 03/21/20 10:24:00 EST,Actual Weight Start Date: 03/21/20 Status: Ordered eplerenone 50 mg oral tablet 50 mg 1 tab, PO, daily, 0 Refill(s) Start Date: 02/25/20 Status: Ordered felodipine 10 mg oral tablet, extended release 10 mg 1 tab, PO, daily, # 30 tab, 0 Refill(s), [facility] Start Date: 10/31/17 Status: Ordered folic acid 1 mg oral tablet 1 mg 1 tab, PO, daily, Take once daily starting 5 - 7 days before chemotherapy., # 30 tab, 5 Refill(s), Pharmacy: [facility] #[id number], 180.34, cm, 03/21/20 10:24:00 EST, Height, 132, kg, 03/21/20 10:24:00 EST, Actual Weight Start Date: 03/21/20 Status: Ordered lisinopril 40 mg oral tablet 40 mg 1 tab, PO, daily, # 30 tab, 0 Refill(s), [facility] Start Date: 10/31/17 Status: Ordered Metoprolol Succinate ER 100 mg oral tablet, extended release 100 mg 1 tab, PO, qPM, # 30 tab, 0 Refill(s), [facility] Start Date: 10/31/17 Status: Ordered ondansetron 4 mg oral tablet 4 mg 1 tab, PO, q8hr, PRN nausea/vomiting, # 20 tab, 2 Refill(s), Pharmacy: [facility] #[id number], 180.34, cm, 03/21/20 10:24:00 EST, Height, 132, kg, 03/21/20 10:24:00 EST, Actual Weight Start Date: 03/21/20 Status: Ordered [employer] COVID-19 Vaccine 30 mcg/0.3 mL preservative-free intramuscular [...]
--- OUTSIDE RECORDS SUMMARY | 2023-10-06 08:47 | XMS_ITS | Summary of Care ---
Author Organization [facility] Address [address] [place], [place] [address]- Care Team Providers Care Diamond Powder Technician Name Role Phone Lazara Casas DO Primary Care Physician [phone] Encounter [facility] [id number] Date(s): 06/19/20 - 06/19/20 [place] [id number] Discharge Disposition: Home Attending [...] daily, # 30 tab, 0 Refill(s), Pharmacy: [facility] #0621 Start Date: 10/31/17 Status: Ordered atorvastatin 40 mg oral tablet 40 mg 1 tab, PO, qPM, # 30 tab, 0 Refill(s), [facility] Start Date: 10/31/17 Status: Ordered chlorthalidone 25 mg oral tablet 25 mg 1 tab, PO, daily, 0 Refill(s) Start Date: 02/25/20 Status: Ordered Compazine 10 mg oral tablet 10 mg 1 tab, PO, q6hr, PRN Nausea/Vomiting, # 30 tab, 2 Refill(s), Pharmacy: [facility] #[id number], 180.34, cm, 03/21/20 10:24:00 EST, Height, 132, kg, 03/21/20 10:24:00 EST, Actual Weight Start Date: 03/21/20 Status: Ordered dexamethasone 4 mg oral tablet 4 mg 1 tab, PO, BID, for 3 days starting the day before chemo, # 30 tab, 0 Refill(s), Pharmacy: [email or web address] #[id number], 180.34, cm, 03/21/20 10:24:00 EST, Height, 132, kg, 03/21/20 10:24:00 EST,Actual Weight Start Date: 03/21/20 Status: Ordered eplerenone 50 mg oral tablet 50 mg 1 tab, PO, daily, 0 Refill(s) Start Date: 02/25/20 Status: Ordered felodipine 10 mg oral tablet, extended release 10 mg 1 tab, PO, daily, # 30 tab, 0 Refill(s), [facility] Start Date: 10/31/17 Status: Ordered folic acid 1 mg oral tablet 1 mg 1 tab, PO, daily, Take once daily starting 5 - 7 days before chemotherapy., # 30 tab, 5 Refill(s), Pharmacy: [email or web address] #[id number], 180.34, cm, 03/21/20 10:24:00 EST, Height, 132, kg, 03/21/20 10:24:00 EST, Actual Weight Start Date: 03/21/20 Status: Ordered lisinopril 40 mg oral tablet 40 mg 1 tab, PO, daily, # 30 tab, 0 Refill(s), [facility] Start Date: 10/31/17 Status: Ordered Metoprolol Succinate ER 100 mg oral tablet, extended release 100 mg 1 tab, PO, qPM, # 30 tab, 0 Refill(s), [facility] Start Date: 10/31/17 Status: Ordered ondansetron 4 mg oral tablet 4 mg 1 tab, PO, q8hr, PRN nausea/vomiting, # 20 tab, 2 Refill(s), Pharmacy: [email or web address] #[id number], 180.34, cm, 03/21/20 10:24:00 EST, Height, 132, kg, 03/21/20 10:24:00 EST, Actual Weight Start Date: 03/21/20 Status: Ordered [employer] COVID-19 Vaccine 30 mcg/0.3 mL preservative-free intramuscular [...]
--- OUTSIDE RECORDS SUMMARY | 2023-10-06 08:47 | XMS_ITS | Summary of Care ---
Author Organization Address [address] [place], [place] [address]- Care Team Providers Care Vulcanizing Machine Operator Name Role Phone Lazara Casas DO Primary Care Physician Encounter [facility] [id number] Date(s): 06/13/20 - 06/13/20 [place] [id number] Discharge Disposition: Home Attending Physician: Lazara Casas DO Referring Physician: Jorje TERRAZAS, Lamont Mcallister Problem List [...] daily, # 30 tab, 0 Refill(s), [facility]: [facility] Start Date: 10/31/17 Status: Ordered atorvastatin 40 mg oral tablet 40 mg 1 tab, PO, qPM, # 30 tab, 0 Refill(s), [facility]acy: [facility] #0621 Start Date: 10/31/17 Status: Ordered chlorthalidone 25 mg oral tablet 25 mg 1 tab, PO, daily, 0 Refill(s) Start Date: 02/25/20 Status: Ordered Compazine 10 mg oral tablet 10 mg 1 tab, PO, q6hr, PRN Nausea/Vomiting, # 30 tab, 2 Refill(s), Pharmacy: [facility] #[id number], 180.34, cm, 03/21/20 10:24:00 EST, Height, 132, kg, 03/21/20 10:24:00 EST, Actual Weight Start Date: 03/21/20 Status: Ordered dexamethasone 4 mg oral tablet 4 mg 1 tab, PO, BID, for 3 days starting the day before chemo, # 30 tab, 0 Refill(s), Pharmacy: [facility] #[id number], 180.34, cm, 03/21/20 10:24:00 EST, Height, 132, kg, 03/21/20 10:24:00 EST,Actual Weight Start Date: 03/21/20 Status: Ordered eplerenone 50 mg oral tablet 50 mg 1 tab, PO, daily, 0 Refill(s) Start Date: 02/25/20 Status: Ordered felodipine 10 mg oral tablet, extended release 10 mg 1 tab, PO, daily, # 30 tab, 0 Refill(s), [facility] Start Date: 10/31/17 Status: Ordered folic acid 1 mg oral tablet 1 mg 1 tab, PO, daily, Take once daily starting 5 - 7 days before chemotherapy., # 30 tab, 5 Refill(s), Pharmacy: [facility] #[id number], 180.34, cm, 03/21/20 10:24:00 EST, Height, 132, kg, 03/21/20 10:24:00 EST, Actual Weight Start Date: 03/21/20 Status: Ordered lisinopril 40 mg oral tablet 40 mg 1 tab, PO, daily, # 30 tab, 0 Refill(s), [facility]: [facility] #0621 Start Date: 10/31/17 Status: Ordered Metoprolol Succinate ER 100 mg oral tablet, extended release 100 mg 1 tab, PO, qPM, # 30 tab, 0 Refill(s), Pharmacy: [facility] #0621 Start Date: 10/31/17 Status: Ordered ondansetron 4 mg oral tablet 4 mg 1 tab, PO, q8hr, PRN nausea/vomiting, # 20 tab, 2 Refill(s), Pharmacy: [facility] #[id number], 180.34, cm, 03/21/20 10:24:00 EST, Height, 132, kg, 03/21/20 10:24:00 EST, Actual Weight Start Date: 03/21/20 Status: Ordered [employer] COVID-19 Vaccine 30 mcg/0.3 mL preservative-free intramuscular [...]
--- OUTSIDE RECORDS SUMMARY | 2023-10-06 08:47 | XMS_ITS | Summary of Care ---
Author Organization [facility] Address [address] [place] [address]- Care Team Providers Care Visual Journalist Name Role Phone Lazara Casas DO Primary Care Physician Encounter [facility] [id number] Date(s): 08/20/19 - 08/20/[address] [address]- Discharge Disposition: Home Attending Physician: Ulises Garcia MD Problem List Condition Effective Dates Status Health Status Inform ant Essential hypertension(Confirmed) Active Hyperlipemia(Confirmed) Active Urinary urgency due to benig n prostatic hypertrophy(Confirmed) Active Allergies, Adverse Reactions, Alerts No Known Allergies Medications aspirin 81 mg oral delayed release tablet 81 mg 1 tab, PO, daily, # 30 tab, 0 Refill(s), Pharmacy: [facility] #0621 Start Date: 10/31/17 Status: Ordered atorvastatin 40 mg oral tablet 40 mg 1 tab, PO, qPM, # 30 tab, 0 Refill(s), [facility]: [facility] Start Date: 10/31/17 Status: Ordered chlorthalidone 25 mg oral tablet 50 mg 2 tab, PO, daily, # 30 tab, 0 Refill(s), [facility]: [facility]06[facility] Start Date: 10/31/17 Status: Ordered felodipine 10 mg oral tablet, extended release 10 mg 1 tab, PO, daily, # 30 tab, 0 Refill(s), [facility]: [facility]06[facility] Start Date: 10/31/17 Status: Ordered lisinopril 40 mg oral tablet 40 mg 1 tab, PO, daily, # 30 tab, 0 Refill(s), [facility]: [facility] Start Date: 10/31/17 Status: Ordered Metoprolol Succinate ER 100 mg oral tablet, extended release 100 mg 1 tab, PO, qPM, # 30 tab, 0 Refill(s), Pharmacy: [facility] #0621 Start Date: 10/31/17 Status: Ordered Immunizations Given and Recorded Vaccine Date Status Refusal Reason pneumococcal 23-polyvalent vaccine 1 10/31/17 Give n 1Early/Late Reason: Nursing Judgment Social History Social History Type Response
--- OUTSIDE RECORDS SUMMARY | 2023-10-06 08:47 | XMS_ITS | Summary of Care ---
/Man Author Organization [facility] Address [address] [id number]- Care Team Providers Care Audograph Operator Name Role Phone Lazara Casas DO Primary Care Physician Encounter [facility] [id number] Date(s): 01/12/23 - 01/12/23 [facility] [address] [id number] Discharge Disposition: Home Attending Physician: Joselyn TERRAZAS, Selvin Harrison Problem List Condition Confirmation Course Effective Dates [...] Wheezing, # 18 g, 0 Refill(s), Pharmacy: [facility] #[id number], 182, cm, 03/04/22 16:37:00 EST, Height, 115.7, [...] 0 Refill(s) Start Date: 03/01/22 Status: Ordered Lipitor 40 mg oral tablet [...]
--- OUTSIDE RECORDS SUMMARY | 2023-10-06 08:47 | XMS_ITS | Summary of Care ---
Author Organization [facility] Address [address] [place], [place] [address]- Care Team Providers Care Pick Up Truck Driver Name Role Phone Lazara Casas DO Primary Care Physician [phone] Encounter [facility] [id number] Date(s): 02/21/20 - 02/21/20 [place] [id number] Discharge Disposition: Home Attending Physician: Jorje TERRAZAS, [...] # 30 tab, 0 Refill(s), [facility] Start Date: 10/31/17 Status: Ordered atorvastatin 40 mg oral tablet 40 mg 1 tab, PO, qPM, # 30 tab, 0 Refill(s), [facility] Start Date: 10/31/17 Status: Ordered chlorthalidone 25 mg oral tablet 50 mg 2 tab, PO, daily, # 30 tab, 0 Refill(s), [facility] Start Date: 10/31/17 Status: Ordered felodipine 10 mg oral tablet, extended release 10 mg 1 tab, PO, daily, # 30 tab, 0 Refill(s), Pharmacy: [facility] #0621 Start Date: 10/31/17 Status: Ordered lisinopril 40 mg oral tablet 40 mg 1 tab, PO, daily, # 30 tab, 0 Refill(s), [facility] #0621 Start Date: 10/31/17 Status: Ordered Metoprolol Succinate ER 100 mg oral tablet, extended release 100 mg 1 tab, PO, qPM, # 30 tab, 0 Refill(s), Pharm[facility]: [facility] #0621 Start Date: 10/31/17 Status: Ordered Immunizations Given and Recorded Vaccine Date Status Refusal Reason pneumococcal 23-polyvalent vaccine 1 10/31/17 Give n 1Early/Late Reason: Nursing Judgment Social History Social History Type Response
--- OUTSIDE RECORDS SUMMARY | 2023-10-06 08:47 | XMS_ITS | Summary of Care ---
/Man Author Organization Address [address] [phone]- Care Team Providers Care Chemical Engineering Teacher Name Role Phone Lazara Casas DO Primary Care Physician Encounter [facility] [id number] Date(s): 12/10/22 - 12/10/22 [place] [id number] Discharge Disposition: Home Attending Physician: Charmaine Perez MD Problem List Condition Confirmation Course Effective [...] Wheezing, # 18 g, 0 Refill(s), Pharmacy: [facility] #[id number], 182, cm, 03/04/22 16:37:00 EST, Height, 115.7, [...]
--- OUTSIDE RECORDS SUMMARY | 2023-10-06 08:47 | XMS_ITS | Summary of Care ---
/Man Author Organization [facility] Address [address] [place], [place] [address]- Care Team Providers Care Poultry Inspector Name Role Phone Lazara Casas DO Primary Care Physician Encounter [facility] [id number] Date(s): 07/26/22 - 07/26/22 [place] [id number] Discharge Disposition: Home Attending Physician: Jorje TERRAZAS, Lamont Mcallister Problem List Condition Effective Dates Status Health Status Inform ant Chronic kidney disease stage 3(Confirmed) 10/05/21 Active Essential hypertension(Confirmed) Active Essential hypertension(Confirmed) 10/05/21 Active Gout(Confirmed) 10/05/21 Active Hyperlipemia(Confirmed) Active Malignant neoplasm of unspec ified part of unspecified bronchus or lung(Confirmed) Active Lung cancer(Confirmed) Active Malignant tumor of lung(Confirmed) 10/05/21 - 03/03/22 Resolved Secondary hyperaldosteronism(Confirmed) 10/05/21 Active Urinary urgency due to benig n prostatic hypertrophy(Confirmed) Active Allergies, Adverse Reactions, Alerts No Known Allergies Medications albuterol HFA 90 mcg/inh MDI 180 mcg 2 puff, inh, q4hr, PRN Wheezing, # 18 g, 0 Refill(s), Pharmacy: [facility] #[id number], 182, cm, 03/04/22 16:37:00 EST, Height, 115.7, [...] Start Date: 03/01/22 Status: Ordered ferrous sulfate 325 mg (65 mg elemental iron) oral tablet 325 mg 1 tab, PO, daily, # 30 tab, 0 Refill(s), Pharmacy: [facility] #[id number], 182, cm, 03/04/22 16:37:00 EST, Height, 115.7, kg, 03/04/22 16:37:00 EST, Actual Weight Start Date: 03/08/22 Status: Ordered Flomax 0.4 mg oral capsule 0.4 mg 1 cap, PO, daily, 0 Refill(s) [...] 0 Refill(s) Start Date: 03/01/22 Status: Ordered PriLOSEC OTC 20 mg oral delayed release tablet 40 mg 2 tab, PO, daily, 0 Refill(s) [...]
--- OUTSIDE RECORDS SUMMARY | 2023-10-06 08:47 | XMS_ITS | Summary of Care ---
/Man Author Organization [facility] Address [address] [place], [place] [address]- Care Team Providers Care Digital Director Name Role Phone Lazara Casas DO Primary Care Physician Encounter [facility] [id number] Date(s): 03/02/23 - 03/02/23 [place] [id number] Discharge Disposition: Home Attending Physician: Charmaine [...] Wheezing, # 18 g, 0 Refill(s), Pharmacy: [facility] #[id number], 182, cm, 03/04/22 16:37:00 EST, Height, 115.7, [...]
--- OUTSIDE RECORDS SUMMARY | 2023-10-06 08:47 | XMS_ITS | Summary of Care ---
/Man Author Organization [facility] Address [address] [place], [place] [id number]- Care Team Providers Care Ems Instructor Name Role Phone Lazara Casas DO Primary Care Physician [phone] Encounter [facility] [id number] Date(s): 12/10/20 - 12/10/20 [place] [id number] Discharge Disposition: Home Attending Physician: Charmaine Perez [...] daily, # 30 tab, 0 Refill(s), [facility] Start Date: 10/31/17 Status: Ordered atorvastatin 40 mg oral tablet 40 mg 1 tab, PO, qPM, # 30 tab, 0 Refill(s), [facility] Start Date: 10/31/17 Status: Ordered eplerenone 50 mg oral tablet 50 mg 1 tab, PO, daily, 0 Refill(s) Start Date: 02/25/20 Status: Ordered felodipine 10 mg oral tablet, extended release 10 mg 1 tab, PO, daily, # 30 tab, 0 Refill(s), Pharmacy: [facility]acy #0621 Start Date: 10/31/17 Status: Ordered lisinopril 40 mg oral tablet 40 mg 1 tab, PO, daily, # 30 tab, 0 Refill(s), [facility] Start Date: 10/31/17 Status: Ordered Metoprolol Succinate ER 100 mg oral tablet, extended release 100 mg 1 tab, PO, qPM, # 30 tab, 0 Refill(s), [facility] Start Date: 10/31/17 Status: Ordered [employer] COVID-19 Vaccine 30 mcg/0.3 mL preservative-free intramuscular [...]
--- OUTSIDE RECORDS SUMMARY | 2023-10-06 08:47 | XMS_ITS | Summary of Care ---
Author Organization [facility] Address [address] [place], [place] [address]- Care Team Providers Care Hand Loom Weaver Name Role Phone Lazara Casas DO Primary Care Physician Encounter [facility] [id number] Date(s): 03/10/20 - 03/10/20 [place] [id number] Discharge Disposition: Home Attending Physician: Charmaine Perez MD Problem List Condition Effective Dates Status Health Status Inform ant Essential hypertension(Confirmed) Active Hyperlipemia(Confirmed) Active Lung cancer(Confirmed) Active Urinary urgency due to benig n prostatic hypertrophy(Confirmed) Active Allergies, Adverse Reactions, Alerts No Known Allergies Medications aspirin 81 mg oral delayed release tablet 81 mg 1 tab, PO, daily, # 30 tab, 0 Refill(s), Pharmacy: [facility] #0621 Start Date: 10/31/17 Status: Ordered atorvastatin 40 mg oral tablet 40 mg 1 tab, PO, qPM, # 30 tab, 0 Refill(s), [facility] Start Date: 10/31/17 Status: Ordered chlorthalidone 25 mg oral tablet 25 mg 1 tab, PO, daily, 0 Refill(s) Start Date: 02/25/20 Status: Ordered eplerenone 50 mg oral tablet 50 mg 1 tab, PO, daily, 0 Refill(s) Start Date: 02/25/20 Status: Ordered felodipine 10 mg oral tablet, extended release 10 mg 1 tab, PO, daily, # 30 tab, 0 Refill(s), [facility]acy[facility]06[facility] Start Date: 10/31/17 Status: Ordered lisinopril 40 mg oral tablet 40 mg 1 tab, PO, daily, # 30 tab, 0 Refill(s), Pharmacy: [facility]acy #0621 Start Date: 10/31/17 Status: Ordered Metoprolol Succinate ER 100 mg oral tablet, extended release 100 mg 1 tab, PO, qPM, # 30 tab, 0 Refill(s), Pharmacy: [facility]acy #0621 Start Date: 10/31/17 Status: Ordered tamsulosin 0.4 mg oral capsule 0.4 mg 1 cap, PO, daily, TK 1 C PO QD Start Date: 02/25/20 Status: Ordered Immunizations Given and Recorded Vaccine Date Status Refusal Reason pneumococcal 23-polyvalent vaccine 1 10/31/17 Give n 1Early/Late Reason: Nursing Judgment Social History Social History Type Response
--- OUTSIDE RECORDS SUMMARY | 2023-10-06 08:47 | XMS_ITS | Summary of Care ---
Author Organization [facility] Address [address] [place], [place] [address]- Care Team Providers Care Naval Aircrewman Name Role Phone Lazara Casas DO Primary Care Physician [phone] Encounter [facility] [id number] Date(s): 06/02/20 - 06/02/20 [place] [id number] [place] Discharge Disposition: Home Attending Physician: Jorje TERRAZAS, [...] daily, # 30 tab, 0 Refill(s), Pharmacy: [facility] #0621 Start Date: 10/31/17 Status: Ordered atorvastatin 40 mg oral tablet 40 mg 1 tab, PO, qPM, # 30 tab, 0 Refill(s), Pharmacy: [facility] #0621 Start Date: 10/31/17 Status: Ordered chlorthalidone 25 mg oral tablet 25 mg 1 tab, PO, daily, 0 Refill(s) Start Date: 02/25/20 Status: Ordered Compazine 10 mg oral tablet 10 mg 1 tab, PO, q6hr, PRN Nausea/Vomiting, # 30 tab, 2 Refill(s), Pharmacy: [facility] #[id number], 180.34, cm, 03/21/20 10:24:00 EST, Height, 132, kg, 03/21/20 10:24:00 EST, Actual Weight Start Date: 03/21/20 Status: Ordered dexamethasone 4 mg oral tablet 4 mg 1 tab, PO, BID, for 3 days starting the day before chemo, # 30 tab, 0 Refill(s), Pharmacy: [facility] #[id number], 180.34, cm, 03/21/20 10:24:00 EST, Height, 132, kg, 03/21/20 10:24:00 EST,Actual Weight Start Date: 03/21/20 Status: Ordered eplerenone 50 mg oral tablet 50 mg 1 tab, PO, daily, 0 Refill(s) Start Date: 02/25/20 Status: Ordered felodipine 10 mg oral tablet, extended release 10 mg 1 tab, PO, daily, # 30 tab, 0 Refill(s), [facility] Start Date: 10/31/17 Status: Ordered folic acid 1 mg oral tablet 1 mg 1 tab, PO, daily, Take once daily starting 5 - 7 days before chemotherapy., # 30 tab, 5 Refill(s), Pharmacy: [facility] #[id number], 180.34, cm, 03/21/20 10:24:00 EST, Height, 132, kg, 03/21/20 10:24:00 EST, Actual Weight Start Date: 03/21/20 Status: Ordered lisinopril 40 mg oral tablet 40 mg 1 tab, PO, daily, # 30 tab, 0 Refill(s), Pharmacy: [facility]acy #0621 Start Date: 10/31/17 Status: Ordered Metoprolol Succinate ER 100 mg oral tablet, extended release 100 mg 1 tab, PO, qPM, # 30 tab, 0 Refill(s), Pharmacy: [facility]/pharmacy #0621 Start Date: 10/31/17 Status: Ordered ondansetron 4 mg oral tablet 4 mg 1 tab, PO, q8hr, PRN nausea/vomiting, # 20 tab, 2 Refill(s), Pharmacy: [facility] #[id number], 180.34, cm, 03/21/20 10:24:00 EST, Height, 132, kg, 03/21/20 10:24:00 EST, Actual Weight Start Date: 03/21/20 Status: Ordered Voltaix COVID-19 Vaccine 30 mcg/0.3 mL preservative-free intramuscular [...]
--- OUTSIDE RECORDS SUMMARY | 2023-10-06 08:47 | XMS_ITS | Summary of Care ---
/Man Author Organization [facility] Address [address] [place], [place] [address]- Care Team Providers Care Functional Tester Typewriters Name Role Phone Lazara Casas DO Primary Care Physician Encounter [facility] [id number] Date(s): 07/26/22 - 07/26/22 [place] [id number] Discharge Disposition: Home Attending Physician: Flaquita Johnson [...] Wheezing, # 18 g, 0 Refill(s), Pharmacy: [facility] #[id number], 182, cm, 03/04/22 16:37:00 EST, Height, 115.7, [...] 0 Refill(s), Pharmacy: [facility] #[id number], 182, cm, 03/04/22 16:37:00 EST, Height, 115.7, [...]
--- OUTSIDE RECORDS SUMMARY | 2023-10-06 08:47 | XMS_ITS | Summary of Care ---
/Man Author Organization [facility] Address [address] [id number]- Care Team Providers Care Cow Puncher Name Role Phone Lazara Casas DO Primary Care Physician Encounter [facility] [id number] Date(s): 01/24/23 - 01/24/23 [place] [id number] Discharge Disposition: Home [...] Wheezing, # 18 g, 0 Refill(s), Pharmacy: [facility] #[id number], 182, cm, 03/04/22 16:37:00 EST, Height, 115.7, [...]
--- OUTSIDE RECORDS SUMMARY | 2023-10-06 08:47 | XMS_ITS | Summary of Care ---
/Man Author Organization [facility] Address [address] [id number]- Care Team Providers Care Bakery Machine Mechanic Name Role Phone Lazara Casas DO Primary Care Physician Encounter [facility] [id number] Date(s): 11/02/21 - 11/02/21 [place] [id number] Discharge Disposition: Home Attending Physician: [...] daily, # 30 tab, 0 Refill(s), Pharmacy: [facility] Start Date: 10/31/17 Status: Ordered atorvastatin 40 mg oral tablet 40 mg 1 tab, PO, qPM, # 30 tab, 0 Refill(s), Pharmacy: [facility] #[facility] Start Date: 10/31/17 Status: Ordered eplerenone [...] tab, 0 Refill(s), [facility] Start Date: 10/31/17 Status: Ordered metFORMIN 500 mg oral tablet 500 mg 1 tab, PO, BID, # 60 tab, 0 Refill(s) Start Date: 07/28/21 Status: Ordered Metoprolol Succinate ER 100 mg oral tablet, extended release 100 mg 1 tab, PO, qPM, # 30 tab, 0 Refill(s), [facility] Start Date: 10/31/17 Status: Ordered omeprazole 40 mg oral delayed release capsule 40 mg 1 cap, PO, daily, # 30 cap, 0 Refill(s) Start Date: 07/28/21 Status: Ordered [employer] COVID-19 Vaccine 30 mcg/0.3 mL preservative-free intramuscular [...]
--- OUTSIDE RECORDS SUMMARY | 2023-10-06 08:47 | XMS_ITS | Summary of Care ---
/Man Author Organization [facility] Address [address] [id number]- Care Team Providers Care Brand Inspector Name Role Phone Lazara Casas DO Primary Care Physician Encounter [facility] [id number] Date(s): 07/31/20 - 07/31/20 [place] [id number] Discharge Disposition: Home Attending Physician: Jorje TERRAZAS, [...] daily, # 30 tab, 0 Refill(s), Pharmacy: [facility] #06[facility] Start Date: 10/31/17 Status: Ordered atorvastatin 40 mg oral tablet 40 mg 1 tab, PO, qPM, # 30 tab, 0 Refill(s), Pharmacy: [facility] #0621 Start Date: 10/31/17 Status: Ordered chlorthalidone 25 mg oral tablet 25 mg 1 tab, PO, daily, 0 Refill(s) Start Date: 02/25/20 Status: Ordered Compazine 10 mg oral tablet 10 mg 1 tab, PO, q6hr, PRN Nausea/Vomiting, # 30 tab, 2 Refill(s), Pharmacy: [facility] #[id number], 180.34, cm, 03/21/20 10:24:00 EST, Height, 132, kg, 03/21/20 10:24:00 EST, Actual Weight Start Date: 03/21/20 Status: Ordered dexamethasone 4 mg oral tablet 4 mg 1 tab, PO, BID, for 3 days starting the day before chemo, # 30 tab, 0 Refill(s), Pharmacy: [facility] #[id number], 180.34, cm, 03/21/20 10:24:00 EST, Height, 132, kg, 03/21/20 10:24:00 EST,Actual Weight Start Date: 03/21/20 Status: Ordered eplerenone 50 mg oral tablet 50 mg 1 tab, PO, daily, 0 Refill(s) Start Date: 02/25/20 Status: Ordered felodipine 10 mg oral tablet, extended release 10 mg 1 tab, PO, daily, # 30 tab, 0 Refill(s), [facility] Start Date: 10/31/17 Status: Ordered folic acid 1 mg oral tablet 1 mg 1 tab, PO, daily, Take once daily starting 5 - 7 days before chemotherapy., # 30 tab, 5 Refill(s), Pharmacy: [facility] #[id number], 180.34, cm, 03/21/20 10:24:00 EST, Height, 132, kg, 03/21/20 10:24:00 EST, Actual Weight Start Date: 03/21/20 Status: Ordered lisinopril 40 mg oral tablet 40 mg 1 tab, PO, daily, # 30 tab, 0 Refill(s), [facility] Start Date: 10/31/17 Status: Ordered Metoprolol Succinate ER 100 mg oral tablet, extended release 100 mg 1 tab, PO, qPM, # 30 tab, 0 Refill(s), [facility] Start Date: 10/31/17 Status: Ordered ondansetron 4 mg oral tablet 4 mg 1 tab, PO, q8hr, PRN nausea/vomiting, # 20 tab, 2 Refill(s), Pharmacy: [facility] #[id number], 180.34, cm, 03/21/20 10:24:00 EST, Height, 132, [...]
--- OUTSIDE RECORDS SUMMARY | 2023-10-06 08:47 | XMS_ITS | Summary of Care ---
/Man Author Organization [facility] Address [address] [place] [address]- Care Team Providers Care Production Analyst Name Role Phone Lazara Casas DO Primary Care Physician [phone] Encounter [facility] [id number] Date(s): 11/10/20 - 11/10/20 [place] [id number] Discharge Disposition: Home Attending [...] daily, # 30 tab, 0 Refill(s), [facility] Start Date: 10/31/17 Status: Ordered atorvastatin 40 mg oral tablet 40 mg 1 tab, PO, qPM, # 30 tab, 0 Refill(s), [facility] Start Date: 10/31/17 Status: Ordered eplerenone 50 mg oral tablet 50 mg 1 tab, PO, daily, 0 Refill(s) Start Date: 02/25/20 Status: Ordered felodipine 10 mg oral tablet, extended release 10 mg 1 tab, PO, daily, # 30 tab, 0 Refill(s), [facility] Start Date: 10/31/17 Status: Ordered lisinopril 40 mg oral tablet 40 mg 1 tab, PO, daily, # 30 tab, 0 Refill(s), Pharmacy: [facility]/pharmacy #0621 Start Date: 10/31/17 Status: Ordered Metoprolol Succinate ER 100 mg oral tablet, extended release 100 mg 1 tab, PO, qPM, # 30 tab, 0 Refill(s), Pharmacy: [facility]/pharmacy #0621 Start Date: 10/31/17 Status: Ordered [employer] COVID-19 Vaccine 30 mcg/0.3 mL preservative-free intramuscular [...]
--- OUTSIDE RECORDS SUMMARY | 2023-10-06 08:47 | XMS_ITS | Summary of Care ---
/Man Author Organization [facility] Address [address] [id number]- Care Team Providers Care Biomedical Equipment Support Specialist Name Role Phone Lazara Casas DO Primary Care Physician Encounter [facility] [id number] Date(s): 02/08/22 - 02/08/22 [place] [id number] Discharge Disposition: Home [...] daily, # 30 tab, 0 Refill(s), [facility]: [facility] Start Date: 10/31/17 Status: Ordered atorvastatin 40 mg oral tablet 40 mg 1 tab, PO, qPM, # 30 tab, 0 Refill(s), [facility]acy: [facility] Start Date: 10/31/17 Status: Ordered eplerenone [...] daily, # 30 tab, 0 Refill(s), [facility] Start Date: 10/31/17 Status: Ordered metFORMIN 500 mg oral tablet 500 mg 1 tab, PO, BID, # 60 tab, 0 Refill(s) Start Date: 07/28/21 Status: Ordered Metoprolol Succinate ER 100 mg oral tablet, extended release 100 mg 1 tab, PO, qPM, # 30 tab, 0 Refill(s), [facility] Start Date: 10/31/17 Status: Ordered omeprazole 40 mg oral delayed release capsule 40 mg 1 cap, PO, daily, # 30 cap, 0 Refill(s) Start Date: 07/28/21 Status: Ordered Pixate COVID-19 Vaccine 30 mcg/0.3 mL preservative-free intramuscular [...]
--- OUTSIDE RECORDS SUMMARY | 2023-10-06 08:47 | XMS_ITS | Summary of Care ---
/Man Author Organization [facility] Address [address] [id number]- Care Team Providers Care Talent Advisor Name Role Phone Lazara Casas DO Primary Care Physician Encounter [facility] [id number] Date(s): 11/10/20 - 11/10/20 [place] [id number] Discharge Disposition: Home Attending Physician: Jorje TERRAZAS, [...] daily, # 30 tab, 0 Refill(s), [facility] Start Date: 10/31/17 Status: Ordered atorvastatin 40 mg oral tablet 40 mg 1 tab, PO, qPM, # 30 tab, 0 Refill(s), [facility] Start Date: 10/31/17 Status: Ordered eplerenone 50 mg oral tablet 50 mg 1 tab, PO, daily, 0 Refill(s) Start Date: 02/25/20 Status: Ordered felodipine 10 mg oral tablet, extended release 10 mg 1 tab, PO, daily, # 30 tab, 0 Refill(s), [facility] Start Date: 10/31/17 Status: Ordered lisinopril 40 mg oral tablet 40 mg 1 tab, PO, daily, # 30 tab, 0 Refill(s), Pharmacy: [facility] #0621 Start Date: 10/31/17 Status: Ordered Metoprolol Succinate ER 100 mg oral tablet, extended release 100 mg 1 tab, PO, qPM, # 30 tab, 0 Refill(s), Pharmacy: [facility] #0621 Start Date: 10/31/17 Status: Ordered [employer] COVID-19 Vaccine 30 mcg/0.3 mL preservative-free intramuscular [...]
--- OUTSIDE RECORDS SUMMARY | 2023-10-06 08:47 | XMS_ITS | Summary of Care ---
Author Organization [facility] Address [address] [place], [place] [id number]- Care Team Providers Care Nurse Quality Name Role Phone Lazara Casas DO Primary Care Physician [phone] Encounter [facility] [id number] Date(s): 04/21/20 - 04/21/20 [place] [id number] Discharge Disposition: Home Attending Physician: Charmaine Perez MD Problem List Condition Effective Dates Status Health Status Inform ant Essential hypertension(Confirmed) Active Hyperlipemia(Confirmed) Active Lung cancer(Confirmed) Active Urinary urgency due to benig n prostatic hypertrophy(Confirmed) Active Allergies, Adverse Reactions, Alerts No Known Allergies Medications aspirin 81 mg oral delayed release tablet 81 mg 1 tab, PO, daily, # 30 tab, 0 Refill(s), Pharmacy: [facility] #0621 Start Date: 10/31/17 Status: Ordered atorvastatin 40 mg oral tablet 40 mg 1 tab, PO, qPM, # 30 tab, 0 Refill(s), [facility]acy: [facility] #06[facility] Start Date: 10/31/17 Status: Ordered chlorthalidone 25 mg oral tablet 25 mg 1 tab, PO, daily, 0 Refill(s) Start Date: 02/25/20 Status: Ordered Compazine 10 mg oral tablet 10 mg 1 tab, PO, q6hr, PRN Nausea/Vomiting, # 30 tab, 2 Refill(s), Pharmacy: [facility] #[id number], 180.34, cm, 03/21/20 10:24:00 EST, Height, 132, kg, 03/21/20 10:24:00 EST, Actual Weight Start Date: 03/21/20 Status: Ordered dexamethasone 4 mg oral tablet 4 mg 1 tab, PO, BID, for 3 days starting the day before chemo, # 30 tab, 0 Refill(s), Pharmacy: [facility] #[id number], 180.34, cm, 03/21/20 10:24:00 EST, Height, 132, kg, 03/21/20 10:24:00 EST,Actual Weight Start Date: 03/21/20 Status: Ordered eplerenone 50 mg oral tablet 50 mg 1 tab, PO, daily, 0 Refill(s) Start Date: 02/25/20 Status: Ordered felodipine 10 mg oral tablet, extended release 10 mg 1 tab, PO, daily, # 30 tab, 0 Refill(s), [facility] Start Date: 10/31/17 Status: Ordered folic acid 1 mg oral tablet 1 mg 1 tab, PO, daily, Take once daily starting 5 - 7 days before chemotherapy., # 30 tab, 5 Refill(s), Pharmacy: [facility] #[id number], 180.34, cm, 03/21/20 10:24:00 EST, Height, 132, kg, 03/21/20 10:24:00 EST, Actual Weight Start Date: 03/21/20 Status: Ordered lisinopril 40 mg oral tablet 40 mg 1 tab, PO, daily, # 30 tab, 0 Refill(s), [facility] Start Date: 10/31/17 Status: Ordered Metoprolol Succinate ER 100 mg oral tablet, extended release 100 mg 1 tab, PO, qPM, # 30 tab, 0 Refill(s), [facility] Start Date: 10/31/17 Status: Ordered ondansetron 4 mg oral tablet 4 mg 1 tab, PO, q8hr, PRN nausea/vomiting, # 20 tab, 2 Refill(s), Pharmacy: [facility] #[id number], 180.34, cm, 03/21/20 10:24:00 EST, Height, 132, [...]
--- OUTSIDE RECORDS SUMMARY | 2023-10-06 08:47 | XMS_ITS | Summary of Care ---
/Man Author Organization [facility] Address [address] [place], [place] [id number]- Care Team Providers Care Bladder Trimmer Name Role Phone Lazara Casas DO Primary Care Physician Encounter [facility] [id number] Date(s): 08/27/20 - 08/27/20 [place] [id number] Discharge Disposition: Home Attending Physician: [...] daily, # 30 tab, 0 Refill(s), [facility] Start Date: 10/31/17 Status: Ordered atorvastatin 40 mg oral tablet 40 mg 1 tab, PO, qPM, # 30 tab, 0 Refill(s), [facility]acy: [facility] #0621 Start Date: 10/31/17 Status: Ordered chlorthalidone 25 mg oral tablet 25 mg 1 tab, PO, daily, 0 Refill(s) Start Date: 02/25/20 Status: Ordered Compazine 10 mg oral tablet 10 mg 1 tab, PO, q6hr, PRN Nausea/Vomiting, # 30 tab, 2 Refill(s), Pharmacy: [facility] #[id number], 180.34, cm, 03/21/20 10:24:00 EST, Height, 132, kg, 03/21/20 10:24:00 EST, Actual Weight Start Date: 03/21/20 Status: Ordered dexamethasone 4 mg oral tablet 4 mg 1 tab, PO, BID, for 3 days starting the day before chemo, # 30 tab, 0 Refill(s), Pharmacy: [facility] #[id number], 180.34, cm, 03/21/20 10:24:00 EST, Height, 132, kg, 03/21/20 10:24:00 EST,Actual Weight Start Date: 03/21/20 Status: Ordered eplerenone 50 mg oral tablet 50 mg 1 tab, PO, daily, 0 Refill(s) Start Date: 02/25/20 Status: Ordered felodipine 10 mg oral tablet, extended release 10 mg 1 tab, PO, daily, # 30 tab, 0 Refill(s), [facility] Start Date: 10/31/17 Status: Ordered folic acid 1 mg oral tablet 1 mg 1 tab, PO, daily, Take once daily starting 5 - 7 days before chemotherapy., # 30 tab, 5 Refill(s), Pharmacy: [facility] #[id number], 180.34, cm, 03/21/20 10:24:00 EST, Height, 132, kg, 03/21/20 10:24:00 EST, Actual Weight Start Date: 03/21/20 Status: Ordered lisinopril 40 mg oral tablet 40 mg 1 tab, PO, daily, # 30 tab, 0 Refill(s), [facility] Start Date: 10/31/17 Status: Ordered Metoprolol Succinate ER 100 mg oral tablet, extended release 100 mg 1 tab, PO, qPM, # 30 tab, 0 Refill(s), [facility] Start Date: 10/31/17 Status: Ordered ondansetron 4 mg oral tablet 4 mg 1 tab, PO, q8hr, PRN nausea/vomiting, # 20 tab, 2 Refill(s), Pharmacy: [facility] #[id number], 180.34, cm, 03/21/20 10:24:00 EST, Height, 132, kg, 03/21/20 10:24:00 EST, Actual Weight Start Date: 03/21/20 Status: Ordered [employer] COVID-19 Vaccine 30 mcg/0.3 mL preservative-free intramuscular [...]
--- OUTSIDE RECORDS SUMMARY | 2023-10-06 08:47 | XMS_ITS | Summary of Care ---
Author Organization [facility] Address [address] [place], [place] [id number]- Care Team Providers Care Academic Associate Name Role Phone Lazara Casas DO Primary Care Physician [phone] Encounter [facility] [id number] Date(s): 02/11/20 - 02/11/20 [place] [id number] Discharge Disposition: Home Attending Physician: Flaquita Johnson Problem List Condition Effective Dates Status Health Status Inform ant Essential hypertension(Confirmed) Active Hyperlipemia(Confirmed) Active Urinary urgency due to benig n prostatic hypertrophy(Confirmed) Active Allergies, Adverse Reactions, Alerts No Known Allergies Medications aspirin 81 mg oral delayed release tablet 81 mg 1 tab, PO, daily, # 30 tab, 0 Refill(s), Pharmacy: [facility] #0621 Start Date: 10/31/17 Status: Ordered atorvastatin 40 mg oral tablet 40 mg 1 tab, PO, qPM, # 30 tab, 0 Refill(s), [facility] Start Date: 10/31/17 Status: Ordered chlorthalidone 25 mg oral tablet 50 mg 2 tab, PO, daily, # 30 tab, 0 Refill(s), [facility] Start Date: 10/31/17 Status: Ordered felodipine 10 mg oral tablet, extended release 10 mg 1 tab, PO, daily, # 30 tab, 0 Refill(s), [facility] Start Date: 10/31/17 Status: Ordered lisinopril 40 mg oral tablet 40 mg 1 tab, PO, daily, # 30 tab, 0 Refill(s), [facility] Start Date: 10/31/17 Status: Ordered Metoprolol Succinate ER 100 mg oral tablet, extended release 100 mg 1 tab, PO, qPM, # 30 tab, 0 Refill(s), Pharmacy: [facility] #0621 Start Date: 10/31/17 Status: Ordered Immunizations Given and Recorded Vaccine Date Status Refusal Reason pneumococcal 23-polyvalent vaccine 1 10/31/17 Give n 1Early/Late Reason: Nursing Judgment Social History Social History Type Response
--- OUTSIDE RECORDS SUMMARY | 2023-10-06 08:47 | XMS_ITS | Summary of Care ---
/Man Author Organization [facility] Address [address] [place], [place] [address]- Care Team Providers Care Printing Specialist Name Role Phone Lazara Casas DO Primary Care Physician Encounter [facility] [id number] Date(s): 07/17/21 - 07/17/21 [place] [id number] Discharge Disposition: Home Attending Physician: Joselyn TERRAZAS, Selvin Harirson Referring Physician: Lazara Casas DO Problem List [...] daily, # 30 tab, 0 Refill(s), Pharmacy: [facility] #0621 Start Date: 10/31/17 Status: Ordered atorvastatin 40 mg oral tablet 40 mg 1 tab, PO, qPM, # 30 tab, 0 Refill(s), Pharmacy: [facility] #0621 Start Date: 10/31/17 Status: Ordered eplerenone 50 mg oral tablet 50 mg 1 tab, PO, daily, 0 Refill(s) Start Date: 02/25/20 Status: Ordered felodipine 10 mg oral tablet, extended release 10 mg 1 tab, PO, daily, # 30 tab, 0 Refill(s), [facility] Start Date: 10/31/17 Status: Ordered lisinopril 40 mg oral tablet 40 mg 1 tab, PO, daily, # 30 tab, 0 Refill(s), [facility] Start Date: 10/31/17 Status: Ordered Metoprolol Succinate ER 100 mg oral tablet, extended release 100 mg 1 tab, PO, qPM, # 30 tab, 0 Refill(s), [facility] Start Date: 10/31/17 Status: Ordered [employer] COVID-19 Vaccine 30 mcg/0.3 mL preservative-free intramuscular [...]
--- OUTSIDE RECORDS SUMMARY | 2023-10-06 08:48 | XMS_ITS | Summary of Care ---
Author Organization [facility] Address [address] [place], [place] [address]- Care Team Providers Care Memorial Marker Designer Name Role Phone Lazara Casas DO Primary Care Physician [phone] Encounter [facility] [id number] Date(s): 05/27/20 - 05/27/20 [place] [id number] Discharge Disposition: Home Attending Physician: Charmaine Perez [...] daily, # 30 tab, 0 Refill(s), Pharmacy: [facility] #0621 Start Date: 10/31/17 Status: Ordered atorvastatin 40 mg oral tablet 40 mg 1 tab, PO, qPM, # 30 tab, 0 Refill(s), [facility] Start Date: 10/31/17 Status: Ordered chlorthalidone 25 mg oral tablet 25 mg 1 tab, PO, daily, 0 Refill(s) Start Date: 02/25/20 Status: Ordered Compazine 10 mg oral tablet 10 mg 1 tab, PO, q6hr, PRN Nausea/Vomiting, # 30 tab, 2 Refill(s), Pharmacy: [facility] #[id number], 180.34, cm, 03/21/20 10:24:00 EST, Height, 132, kg, 03/21/20 10:24:00 EST, Actual Weight Start Date: 03/21/20 Status: Ordered dexamethasone 4 mg oral tablet 4 mg 1 tab, PO, BID, for 3 days starting the day before chemo, # 30 tab, 0 Refill(s), Pharmacy: [facility] #[id number], 180.34, cm, 03/21/20 10:24:00 EST, Height, 132, kg, 03/21/20 10:24:00 EST,Actual Weight Start Date: 03/21/20 Status: Ordered eplerenone 50 mg oral tablet 50 mg 1 tab, PO, daily, 0 Refill(s) Start Date: 02/25/20 Status: Ordered felodipine 10 mg oral tablet, extended release 10 mg 1 tab, PO, daily, # 30 tab, 0 Refill(s), [facility] Start Date: 10/31/17 Status: Ordered folic acid 1 mg oral tablet 1 mg 1 tab, PO, daily, Take once daily starting 5 - 7 days before chemotherapy., # 30 tab, 5 Refill(s), Pharmacy: [facility] #[id number], 180.34, cm, 03/21/20 10:24:00 EST, Height, 132, kg, 03/21/20 10:24:00 EST, Actual Weight Start Date: 03/21/20 Status: Ordered lisinopril 40 mg oral tablet 40 mg 1 tab, PO, daily, # 30 tab, 0 Refill(s), [facility] Start Date: 10/31/17 Status: Ordered Metoprolol Succinate ER 100 mg oral tablet, extended release 100 mg 1 tab, PO, qPM, # 30 tab, 0 Refill(s), [facility] Start Date: 10/31/17 Status: Ordered ondansetron 4 mg oral tablet 4 mg 1 tab, PO, q8hr, PRN nausea/vomiting, # 20 tab, 2 Refill(s), Pharmacy: [facility] #[id number], 180.34, cm, 03/21/20 10:24:00 EST, Height, 132, kg, 03/21/20 10:24:00 EST, Actual Weight Start Date: 03/21/20 Status: Ordered [email or web address] COVID-19 Vaccine 30 mcg/0.3 mL preservative-free intramuscular [...]
--- OUTSIDE RECORDS SUMMARY | 2023-10-06 08:48 | XMS_ITS | Summary of Care ---
/Man Author Organization [facility] Address [address] [place], [place] [address]- Care Team Providers Care Assembly Detailer Name Role Phone Lazara Casas DO Primary Care Physician [phone] Encounter [facility] [id number] Date(s): 01/12/22 - 01/12/22 [place] [id number] Discharge Disposition: Home Attending Physician: Selvin [...] daily, # 30 tab, 0 Refill(s), Pharmacy: [facility] #0621 Start Date: 10/31/17 Status: Ordered atorvastatin 40 mg oral tablet 40 mg 1 tab, PO, qPM, # 30 tab, 0 Refill(s), Pharmacy: [facility] #0621 Start Date: 10/31/17 Status: Ordered eplerenone 50 mg oral tablet 50 mg 1 tab, PO, daily, 0 Refill(s) Start Date: 02/25/20 Status: Ordered felodipine 10 mg oral tablet, extended release 10 mg 1 tab, PO, daily, # 30 tab, 0 Refill(s), [facility] Start Date: 10/31/17 Status: Ordered levothyroxine 100 mcg (0.1 mg) oral tablet 100 mcg 1 tab, PO, daily, # 30 tab, 0 Refill(s) Start Date: 07/28/21 Status: Ordered lisinopril 40 mg oral tablet 40 mg 1 tab, PO, daily, # 30 tab, 0 Refill(s), [facility] Start Date: 10/31/17 Status: Ordered metFORMIN 500 mg oral tablet 500 mg 1 tab, PO, BID, # 60 tab, 0 Refill(s) Start Date: 07/28/21 Status: Ordered Metoprolol Succinate ER 100 mg oral tablet, extended release 100 mg 1 tab, PO, qPM, # 30 tab, 0 Refill(s), Pharmacy: [facility] #0621 Start Date: 10/31/17 Status: Ordered omeprazole 40 mg oral delayed release capsule 40 mg 1 cap, PO, daily, # 30 cap, 0 Refill(s) Start Date: 07/28/21 Status: Ordered PT Harapan Inti Selaras COVID-19 Vaccine 30 mcg/0.3 mL preservative-free intramuscular [...]
--- OUTSIDE RECORDS SUMMARY | 2023-10-06 08:48 | XMS_ITS | Summary of Care ---
Author Organization [facility] Address [address] [place], [place] [address]- Care Team Providers Care Call Or Contact Centre Manager Name Role Phone Lazara Casas DO Primary Care Physician Encounter [facility] [id number] Date(s): 02/29/20 - 03/01/20 [place] [id number] Discharge Disposition: [...] daily, # 30 tab, 0 Refill(s), Pharmacy: [facility] #0621 Start Date: 10/31/17 Status: Ordered atorvastatin 40 mg oral tablet 40 mg 1 tab, PO, qPM, # 30 tab, 0 Refill(s), [facility] Start Date: 10/31/17 Status: Ordered chlorthalidone 25 mg oral tablet 25 mg 1 tab, PO, daily, 0 Refill(s) Start Date: 02/25/20 Status: Ordered eplerenone 50 mg oral tablet 50 mg 1 tab, PO, daily, 0 Refill(s) Start Date: 02/25/20 Status: Ordered felodipine 10 mg oral tablet, extended release 10 mg 1 tab, PO, daily, # 30 tab, 0 Refill(s), Pharmacy: [facility] #0621 Start Date: 10/31/17 Status: Ordered lisinopril 40 mg oral tablet 40 mg 1 tab, PO, daily, # 30 tab, 0 Refill(s), Pharmacy: [facility] #0621 Start Date: 10/31/17 Status: Ordered Metoprolol Succinate ER 100 mg oral tablet, extended release 100 mg 1 tab, PO, qPM, # 30 tab, 0 Refill(s), Pharmacy: [facility] #0621 Start Date: 10/31/17 Status: Ordered tamsulosin 0.4 mg oral capsule 0.4 mg 1 cap, PO, daily, TK 1 C PO QD Start Date: 02/25/20 Status: Ordered Immunizations Given and Recorded Vaccine Date Status Refusal Reason pneumococcal 23-polyvalent vaccine 1 10/31/17 Give n 1Early/Late Reason: Nursing Judgment Social History Social History Type Response
--- OUTSIDE RECORDS SUMMARY | 2023-10-06 08:48 | XMS_ITS | Summary of Care ---
Author Organization [facility] Address [address] [place], [place] [address]- Care Team Providers Care Plumber And Tinner Name Role Phone Lazara Casas DO Primary Care Physician [phone] Encounter [facility] [id number] Date(s): 04/17/20 - 04/17/20 [place] [id number] Discharge Disposition: [...] daily, # 30 tab, 0 Refill(s), Pharmacy: [facility] #0621 Start Date: 10/31/17 Status: Ordered atorvastatin 40 mg oral tablet 40 mg 1 tab, PO, qPM, # 30 tab, 0 Refill(s), [facility]: [facility] Start Date: 10/31/17 Status: Ordered chlorthalidone 25 mg oral tablet 25 mg 1 tab, PO, daily, 0 Refill(s) Start Date: 02/25/20 Status: Ordered Compazine 10 mg oral tablet 10 mg 1 tab, PO, q6hr, PRN Nausea/Vomiting, # 30 tab, 2 Refill(s), Pharmacy: [facility] #[id number], 180.34, cm, 03/21/20 10:24:00 EST, Height, 132, kg, 03/21/20 10:24:00 EST, Actual Weight Start Date: 03/21/20 Status: Ordered dexamethasone 4 mg oral tablet 4 mg 1 tab, PO, BID, for 3 days starting the day before chemo, # 30 tab, 0 Refill(s), Pharmacy: [facility] #[id number], 180.34, cm, 03/21/20 10:24:00 EST, Height, 132, kg, 03/21/20 10:24:00 EST,Actual Weight Start Date: 03/21/20 Status: Ordered eplerenone 50 mg oral tablet 50 mg 1 tab, PO, daily, 0 Refill(s) Start Date: 02/25/20 Status: Ordered felodipine 10 mg oral tablet, extended release 10 mg 1 tab, PO, daily, # 30 tab, 0 Refill(s), [facility] Start Date: 10/31/17 Status: Ordered folic acid 1 mg oral tablet 1 mg 1 tab, PO, daily, Take once daily starting 5 - 7 days before chemotherapy., # 30 tab, 5 Refill(s), Pharmacy: [facility] #[id number], 180.34, cm, 03/21/20 10:24:00 EST, Height, 132, kg, 03/21/20 10:24:00 EST, Actual Weight Start Date: 03/21/20 Status: Ordered lisinopril 40 mg oral tablet 40 mg 1 tab, PO, daily, # 30 tab, 0 Refill(s), [facility] Start Date: 10/31/17 Status: Ordered Metoprolol Succinate ER 100 mg oral tablet, extended release 100 mg 1 tab, PO, qPM, # 30 tab, 0 Refill(s), [facility] Start Date: 10/31/17 Status: Ordered ondansetron 4 mg oral tablet 4 mg 1 tab, PO, q8hr, PRN nausea/vomiting, # 20 tab, 2 Refill(s), Pharmacy: [facility] #[id number], 180.34, cm, 03/21/20 10:24:00 EST, Height, 132, [...]
--- OUTSIDE RECORDS SUMMARY | 2023-10-06 08:48 | XMS_ITS | Summary of Care ---
/Man Author Organization [facility] Address [address] [place] [address]- Care Team Providers Care Knowledge Manager Name Role Phone Lazara Casas DO Primary Care Physician Encounter [facility] [id number] Date(s): 07/31/20 - 07/31/20 [place] [id number] Discharge Disposition: Home Attending [...] daily, # 30 tab, 0 Refill(s), Pharmacy: [facility] #0621 Start Date: 10/31/17 Status: Ordered atorvastatin 40 mg oral tablet 40 mg 1 tab, PO, qPM, # 30 tab, 0 Refill(s), [facility]acy: [facility] #[facility] Start Date: 10/31/17 Status: Ordered chlorthalidone 25 mg oral tablet 25 mg 1 tab, PO, daily, 0 Refill(s) Start Date: 02/25/20 Status: Ordered Compazine 10 mg oral tablet 10 mg 1 tab, PO, q6hr, PRN Nausea/Vomiting, # 30 tab, 2 Refill(s), Pharmacy: [facility] #[id number], 180.34, cm, 03/21/20 10:24:00 EST, Height, 132, kg, 03/21/20 10:24:00 EST, Actual Weight Start Date: 03/21/20 Status: Ordered dexamethasone 4 mg oral tablet 4 mg 1 tab, PO, BID, for 3 days starting the day before chemo, # 30 tab, 0 Refill(s), Pharmacy: [facility] #[id number], 180.34, cm, 03/21/20 10:24:00 EST, Height, 132, kg, 03/21/20 10:24:00 EST,Actual Weight Start Date: 03/21/20 Status: Ordered eplerenone 50 mg oral tablet 50 mg 1 tab, PO, daily, 0 Refill(s) Start Date: 02/25/20 Status: Ordered felodipine 10 mg oral tablet, extended release 10 mg 1 tab, PO, daily, # 30 tab, 0 Refill(s), [facility] Start Date: 10/31/17 Status: Ordered folic acid 1 mg oral tablet 1 mg 1 tab, PO, daily, Take once daily starting 5 - 7 days before chemotherapy., # 30 tab, 5 Refill(s), Pharmacy: [facility] #[id number], 180.34, cm, 03/21/20 10:24:00 EST, Height, 132, kg, 03/21/20 10:24:00 EST, Actual Weight Start Date: 03/21/20 Status: Ordered lisinopril 40 mg oral tablet 40 mg 1 tab, PO, daily, # 30 tab, 0 Refill(s), [facility] Start Date: 10/31/17 Status: Ordered Metoprolol Succinate ER 100 mg oral tablet, extended release 100 mg 1 tab, PO, qPM, # 30 tab, 0 Refill(s), [facility] Start Date: 10/31/17 Status: Ordered ondansetron 4 mg oral tablet 4 mg 1 tab, PO, q8hr, PRN nausea/vomiting, # 20 tab, 2 Refill(s), Pharmacy: [facility] #[id number], 180.34, cm, 03/21/20 10:24:00 EST, Height, 132, kg, 03/21/20 10:24:00 EST, Actual Weight Start Date: 03/21/20 Status: Ordered Wizt[employer] COVID-19 Vaccine 30 mcg/0.3 mL preservative-free intramuscular [...]
--- OUTSIDE RECORDS SUMMARY | 2023-10-06 08:48 | XMS_ITS | Summary of Care ---
Author Organization [facility] Address [address] [place], [place] [address]- Care Team Providers Care Correctional Supervising Cook Name Role Phone Lazara Casas DO Primary Care Physician [phone] Encounter [facility] [id number] Date(s): 01/24/20 - 01/24/20 [place] [id number] Discharge Disposition: Home Attending Physician: [...] daily, # 30 tab, 0 Refill(s), [facility] Start Date: 10/31/17 Status: Ordered atorvastatin 40 mg oral tablet 40 mg 1 tab, PO, qPM, # 30 tab, 0 Refill(s), [facility] Start Date: 10/31/17 Status: Ordered chlorthalidone 25 mg oral tablet 50 mg 2 tab, PO, daily, # 30 tab, 0 Refill(s), [facility] Start Date: 10/31/17 Status: Ordered felodipine 10 mg oral tablet, extended release 10 mg 1 tab, PO, daily, # 30 tab, 0 Refill(s), [facility]acy: [email or web address] #0621 Start Date: 10/31/17 Status: Ordered lisinopril 40 mg oral tablet 40 mg 1 tab, PO, daily, # 30 tab, 0 Refill(s), [facility] #[facility] Start Date: 10/31/17 Status: Ordered Metoprolol Succinate ER 100 mg oral tablet, extended release 100 mg 1 tab, PO, qPM, # 30 tab, 0 Refill(s), [facility]acy: [facility] #0621 Start Date: 10/31/17 Status: Ordered Immunizations Given and Recorded Vaccine Date Status Refusal Reason pneumococcal 23-polyvalent vaccine 1 10/31/17 Give n 1Early/Late Reason: Nursing Judgment Social History Social History Type Response
--- OUTSIDE RECORDS SUMMARY | 2023-10-06 08:48 | XMS_ITS | Summary of Care ---
Author Organization [facility] Address [address] [place], [place] [address]- Care Team Providers Care Waste Cotton Cleaner Name Role Phone Lazara Casas DO Primary Care Physician Encounter [facility] [id number] Date(s): 02/16/20 - 02/16/20 [place] [id number] Discharge Disposition: Home Attending Physician: Flaquita Johnson Problem List Condition Effective Dates Status Health Status Inform ant Essential hypertension(Confirmed) Active Hyperlipemia(Confirmed) Active Urinary urgency due to benig n prostatic hypertrophy(Confirmed) Active Allergies, Adverse Reactions, Alerts No Known Allergies Medications aspirin 81 mg oral delayed release tablet 81 mg 1 tab, PO, daily, # 30 tab, 0 Refill(s), Pharmacy: [facility] #0621 Start Date: 10/31/17 Status: Ordered atorvastatin 40 mg oral tablet 40 mg 1 tab, PO, qPM, # 30 tab, 0 Refill(s), [facility]: [facility] Start Date: 10/31/17 Status: Ordered chlorthalidone 25 mg oral tablet 50 mg 2 tab, PO, daily, # 30 tab, 0 Refill(s), [facility] Start Date: 10/31/17 Status: Ordered felodipine 10 mg oral tablet, extended release 10 mg 1 tab, PO, daily, # 30 tab, 0 Refill(s), [facility]: [facility] #[facility] Start Date: 10/31/17 Status: Ordered lisinopril 40 mg oral tablet 40 mg 1 tab, PO, daily, # 30 tab, 0 Refill(s), [facility]: [facility] Start Date: 10/31/17 Status: Ordered Metoprolol Succinate ER 100 mg oral tablet, extended release 100 mg 1 tab, PO, qPM, # 30 tab, 0 Refill(s), [facility]: [facility] #0621 Start Date: 10/31/17 Status: Ordered Immunizations Given and Recorded Vaccine Date Status Refusal Reason pneumococcal 23-polyvalent vaccine 1 10/31/17 Give n 1Early/Late Reason: Nursing Judgment Social History Social History Type Response
--- OUTSIDE RECORDS SUMMARY | 2023-10-06 08:48 | XMS_ITS | Summary of Care ---
Author Organization [facility] Address [address] [place], [place] [address]- Care Team Providers Care Paper Making Machine Operator Name Role Phone Lazara Casas DO Primary Care Physician Encounter [facility] [id number] Date(s): 03/28/20 - 03/28/20 [place] [id number] Discharge Disposition: Home Attending Physician: [...] daily, # 30 tab, 0 Refill(s), Pharmacy: [facility] #0621 Start Date: 10/31/17 Status: Ordered atorvastatin 40 mg oral tablet 40 mg 1 tab, PO, qPM, # 30 tab, 0 Refill(s), [facility] Start Date: 10/31/17 Status: Ordered chlorthalidone 25 mg oral tablet 25 mg 1 tab, PO, daily, 0 Refill(s) Start Date: 02/25/20 Status: Ordered Compazine 10 mg oral tablet 10 mg 1 tab, PO, q6hr, PRN Nausea/Vomiting, # 30 tab, 2 Refill(s), Pharmacy: [facility] #[id number], 180.34, cm, 03/21/20 10:24:00 EST, Height, 132, kg, 03/21/20 10:24:00 EST, Actual Weight Start Date: 03/21/20 Status: Ordered dexamethasone 4 mg oral tablet 4 mg 1 tab, PO, BID, for 3 days starting the day before chemo, # 30 tab, 0 Refill(s), Pharmacy: [facility] #[id number], 180.34, cm, 03/21/20 10:24:00 EST, Height, 132, kg, 03/21/20 10:24:00 EST,Actual Weight Start Date: 03/21/20 Status: Ordered eplerenone 50 mg oral tablet 50 mg 1 tab, PO, daily, 0 Refill(s) Start Date: 02/25/20 Status: Ordered felodipine 10 mg oral tablet, extended release 10 mg 1 tab, PO, daily, # 30 tab, 0 Refill(s), [facility] Start Date: 10/31/17 Status: Ordered folic acid 1 mg oral tablet 1 mg 1 tab, PO, daily, Take once daily starting 5 - 7 days before chemotherapy., # 30 tab, 5 Refill(s), Pharmacy: [facility] #[id number], 180.34, cm, 03/21/20 10:24:00 EST, Height, 132, kg, 03/21/20 10:24:00 EST, Actual Weight Start Date: 03/21/20 Status: Ordered lisinopril 40 mg oral tablet 40 mg 1 tab, PO, daily, # 30 tab, 0 Refill(s), [facility] Start Date: 10/31/17 Status: Ordered Metoprolol Succinate ER 100 mg oral tablet, extended release 100 mg 1 tab, PO, qPM, # 30 tab, 0 Refill(s), [facility] Start Date: 10/31/17 Status: Ordered ondansetron 4 mg oral tablet 4 mg 1 tab, PO, q8hr, PRN nausea/vomiting, # 20 tab, 2 Refill(s), Pharmacy: [facility] #[id number], 180.34, cm, 03/21/20 10:24:00 EST, Height, 132, [...]
--- OUTSIDE RECORDS SUMMARY | 2023-10-06 08:48 | XMS_ITS | Summary of Care ---
Author Organization [facility] Address [address] [place], [place] [address]- Care Team Providers Care Biodiesel Plant Superintendent Name Role Phone Lazara Casas DO Primary Care Physician Encounter [facility] [id number] Date(s): 06/09/20 - 06/09/20 [place] [id number] Dis[facility] Disposition: Home Attending Physician: Kelli Leyva MD Referring Physician: Lazara Casas DO Problem [...] daily, # 30 tab, 0 Refill(s), [facility] Start Date: 10/31/17 Status: Ordered atorvastatin 40 mg oral tablet 40 mg 1 tab, PO, qPM, # 30 tab, 0 Refill(s), Pharmacy: [facility] #0621 Start Date: 10/31/17 Status: Ordered chlorthalidone 25 mg oral tablet 25 mg 1 tab, PO, daily, 0 Refill(s) Start Date: 02/25/20 Status: Ordered Compazine 10 mg oral tablet 10 mg 1 tab, PO, q6hr, PRN Nausea/Vomiting, # 30 tab, 2 Refill(s), Pharmacy: [facility] #[id number], 180.34, cm, 03/21/20 10:24:00 EST, Height, 132, kg, 01/08/21 10:24:00 EST, Actual Weight Start Date: 03/21/20 Status: Ordered dexamethasone 4 mg oral tablet 4 mg 1 tab, PO, BID, for 3 days starting the day before chemo, # 30 tab, 0 Refill(s), Pharmacy: [facility] #[id number], 180.34, cm, 03/21/20 10:24:00 EST, Height, 132, kg, 03/21/20 10:24:00 EST,Actual Weight Start Date: 03/21/20 Status: Ordered eplerenone 50 mg oral tablet 50 mg 1 tab, PO, daily, 0 Refill(s) Start Date: 02/25/20 Status: Ordered felodipine 10 mg oral tablet, extended release 10 mg 1 tab, PO, daily, # 30 tab, 0 Refill(s), [facility] Start Date: 10/31/17 Status: Ordered folic acid 1 mg oral tablet 1 mg 1 tab, PO, daily, Take once daily starting 5 - 7 days before chemotherapy., # 30 tab, 5 Refill(s), Pharmacy: [facility] #[id number], 180.34, cm, 03/21/20 10:24:00 EST, Height, 132, [...] nausea/vomiting, # 20 tab, 2 Refill(s), Pharmacy: [facility] #[id number], 180.34, cm, 03/21/20 10:24:00 EST, Height, 132, kg, 03/21/20 10:24:00 EST, Actual Weight Start Date: 03/21/20 Status: Ordered Iceberg COVID-19 Vaccine 30 mcg/0.3 mL preservative-free intramuscular [...]
--- OUTSIDE RECORDS SUMMARY | 2023-10-06 08:48 | XMS_ITS | Summary of Care ---
/Man Author Organization [facility] Address [address] [place] [id number]- Care Team Providers Care Supervisor Feed House Name Role Phone Lazara Casas DO Primary Care Physician Encounter [facility] [id number] Date(s): 01/24/23 - 01/24/23 [facility] [address] [place] [id number] Discharge Disposition: Home Attending Physician: Jorje [...] Wheezing, # 18 g, 0 Refill(s), Pharmacy: [facility] #[id number], 182, cm, 03/04/22 16:37:00 EST, Height, 115.7, [...]
--- OUTSIDE RECORDS SUMMARY | 2023-10-06 08:48 | XMS_ITS | Summary of Care ---
/Man Author Organization [facility] Address [address] [place] [id number]- Care Team Providers Care Professional Skater Name Role Phone Lazara Casas DO Primary Care Physician Encounter [facility] [id number] Date(s): 02/09/21 - 02/09/21 [place] [id number] Discharge Disposition: Home Attending Physician: Jorje [...] daily, # 30 tab, 0 Refill(s), Pharmacy: [facility] #0621 Start Date: 10/31/17 Status: Ordered atorvastatin 40 mg oral tablet 40 mg 1 tab, PO, qPM, # 30 tab, 0 Refill(s), Pharmacy: [facility] #0621 Start Date: 10/31/17 Status: Ordered eplerenone 50 mg oral tablet 50 mg 1 tab, PO, daily, 0 Refill(s) Start Date: 02/25/20 Status: Ordered felodipine 10 mg oral tablet, extended release 10 mg 1 tab, PO, daily, # 30 tab, 0 Refill(s), [facility] Start Date: 10/31/17 Status: Ordered lisinopril 40 mg oral tablet 40 mg 1 tab, PO, daily, # 30 tab, 0 Refill(s), [facility] Start Date: 10/31/17 Status: Ordered Metoprolol Succinate ER 100 mg oral tablet, extended release 100 mg 1 tab, PO, qPM, # 30 tab, 0 Refill(s), [facility] Start Date: 10/31/17 Status: Ordered [employer] COVID-19 Vaccine 30 mcg/0.3 mL preservative-free intramuscular [...]
--- OUTSIDE RECORDS SUMMARY | 2023-10-06 08:48 | XMS_ITS | Summary of Care ---
/Man Author Organization [facility] Address [address] [place], [place] [address]- Care Team Providers Care Clip Bolter And Wrapper Name Role Phone Lazara Casas DO Primary Care Physician Encounter [facility] [id number] Date(s): 07/11/20 - 07/11/20 [place] [id number] Discharge Disposition: Home Attending Physician: [...] daily, # 30 tab, 0 Refill(s), [facility]acy: [facility] #0621 Start Date: 10/31/17 Status: Ordered atorvastatin 40 mg oral tablet 40 mg 1 tab, PO, qPM, # 30 tab, 0 Refill(s), Pharmacy: [facility] #0621 Start Date: 10/31/17 Status: Ordered chlorthalidone 25 mg oral tablet 25 mg 1 tab, PO, daily, 0 Refill(s) Start Date: 02/25/20 Status: Ordered Compazine 10 mg oral tablet 10 mg 1 tab, PO, q6hr, PRN Nausea/Vomiting, # 30 tab, 2 Refill(s), Pharmacy: [facility] #[id number], 180.34, cm, 03/21/20 10:24:00 EST, Height, 132, kg, 03/21/20 10:24:00 EST, Actual Weight Start Date: 03/21/20 Status: Ordered dexamethasone 4 mg oral tablet 4 mg 1 tab, PO, BID, for 3 days starting the day before chemo, # 30 tab, 0 Refill(s), Pharmacy: [facility] #[id number], 180.34, cm, 03/21/20 10:24:00 EST, Height, 132, kg, 03/21/20 10:24:00 EST,Actual Weight Start Date: 03/21/20 Status: Ordered eplerenone 50 mg oral tablet 50 mg 1 tab, PO, daily, 0 Refill(s) Start Date: 02/25/20 Status: Ordered felodipine 10 mg oral tablet, extended release 10 mg 1 tab, PO, daily, # 30 tab, 0 Refill(s), [facility] Start Date: 10/31/17 Status: Ordered folic acid 1 mg oral tablet 1 mg 1 tab, PO, daily, Take once daily starting 5 - 7 days before chemotherapy., # 30 tab, 5 Refill(s), Pharmacy: [facility] #[id number], 180.34, cm, 03/21/20 10:24:00 EST, Height, 132, kg, 03/21/20 10:24:00 EST, Actual Weight Start Date: 03/21/20 Status: Ordered lisinopril 40 mg oral tablet 40 mg 1 tab, PO, daily, # 30 tab, 0 Refill(s), [facility] Start Date: 10/31/17 Status: Ordered Metoprolol Succinate ER 100 mg oral tablet, extended release 100 mg 1 tab, PO, qPM, # 30 tab, 0 Refill(s), [facility] Start Date: 10/31/17 Status: Ordered ondansetron 4 mg oral tablet 4 mg 1 tab, PO, q8hr, PRN nausea/vomiting, # 20 tab, 2 Refill(s), Pharmacy: [facility] #[id number], 180.34, cm, 03/21/20 10:24:00 EST, Height, 132, kg, 03/21/20 10:24:00 EST, Actual Weight Start Date: 03/21/20 Status: Ordered [employer]MOS COVID-19 Vaccine 30 mcg/0.3 mL preservative-free intramuscular [...]
--- OUTSIDE RECORDS SUMMARY | 2023-10-06 08:48 | XMS_ITS | Summary of Care ---
/Man Author Organization [facility] Address [address] [place] [address]- Care Team Providers Care Welfare Eligibility Worker Name Role Phone Lazara Casas DO Primary Care Physician Encounter [facility] [id number] Date(s): 02/09/21 - 02/09/21 [place] [id number] Discharge Disposition: Home Attending Physician: Jorje TERRAZAS, [...] daily, # 30 tab, 0 Refill(s), [facility] #06[facility] Start Date: 10/31/17 Status: Ordered atorvastatin 40 mg oral tablet 40 mg 1 tab, PO, qPM, # 30 tab, 0 Refill(s), [facility]: [facility] #0621 Start Date: 10/31/17 Status: Ordered eplerenone 50 mg oral tablet 50 mg 1 tab, PO, daily, 0 Refill(s) Start Date: 02/25/20 Status: Ordered felodipine 10 mg oral tablet, extended release 10 mg 1 tab, PO, daily, # 30 tab, 0 Refill(s), Pharmacy: [facility] Start Date: 10/31/17 Status: Ordered lisinopril 40 mg oral tablet 40 mg 1 tab, PO, daily, # 30 tab, 0 Refill(s), [facility] Start Date: 10/31/17 Status: Ordered Metoprolol Succinate ER 100 mg oral tablet, extended release 100 mg 1 tab, PO, qPM, # 30 tab, 0 Refill(s), [facility] Start Date: 10/31/17 Status: Ordered [employer] COVID-19 Vaccine 30 mcg/0.3 mL preservative-free intramuscular [...]
--- OUTSIDE RECORDS SUMMARY | 2023-10-06 08:48 | XMS_ITS | Summary of Care ---
/Man Author Organization [facility] Address [address] [place], [place] [address]- Care Team Providers Care Tableman Name Role Phone Lazara Casas DO Primary Care Physician [phone] Encounter [facility] [id number] Date(s): 06/30/20 - 06/30/20 [place] [id number] Discharge Disposition: Home Attending [...] daily, # 30 tab, 0 Refill(s), [facility]acy: [facility] Start Date: 10/31/17 Status: Ordered atorvastatin 40 mg oral tablet 40 mg 1 tab, PO, qPM, # 30 tab, 0 Refill(s), [facility]acy: [facility] Start Date: 10/31/17 Status: Ordered chlorthalidone 25 mg oral tablet 25 mg 1 tab, PO, daily, 0 Refill(s) Start Date: 02/25/20 Status: Ordered Compazine 10 mg oral tablet 10 mg 1 tab, PO, q6hr, PRN Nausea/Vomiting, # 30 tab, 2 Refill(s), Pharmacy: [facility] #[id number], 180.34, cm, 03/21/20 10:24:00 EST, Height, 132, kg, 03/21/20 10:24:00 EST, Actual Weight Start Date: 03/21/20 Status: Ordered dexamethasone 4 mg oral tablet 4 mg 1 tab, PO, BID, for 3 days starting the day before chemo, # 30 tab, 0 Refill(s), Pharmacy: [facility] #[id number], 180.34, cm, 03/21/20 10:24:00 EST, Height, 132, kg, 03/21/20 10:24:00 EST,Actual Weight Start Date: 03/21/20 Status: Ordered eplerenone 50 mg oral tablet 50 mg 1 tab, PO, daily, 0 Refill(s) Start Date: 02/25/20 Status: Ordered felodipine 10 mg oral tablet, extended release 10 mg 1 tab, PO, daily, # 30 tab, 0 Refill(s), [facility] Start Date: 10/31/17 Status: Ordered folic acid 1 mg oral tablet 1 mg 1 tab, PO, daily, Take once daily starting 5 - 7 days before chemotherapy., # 30 tab, 5 Refill(s), Pharmacy: [facility] #[id number], 180.34, cm, 03/21/20 10:24:00 EST, Height, 132, kg, 03/21/20 10:24:00 EST, Actual Weight Start Date: 03/21/20 Status: Ordered lisinopril 40 mg oral tablet 40 mg 1 tab, PO, daily, # 30 tab, 0 Refill(s), [facility] Start Date: 10/31/17 Status: Ordered Metoprolol Succinate ER 100 mg oral tablet, extended release 100 mg 1 tab, PO, qPM, # 30 tab, 0 Refill(s), [facility] Start Date: 10/31/17 Status: Ordered ondansetron 4 mg oral tablet 4 mg 1 tab, PO, q8hr, PRN nausea/vomiting, # 20 tab, 2 Refill(s), Pharmacy: [facility] #[id number], 180.34, cm, 03/21/20 10:24:00 EST, Height, 132, [...]
--- OUTSIDE RECORDS SUMMARY | 2023-10-06 08:48 | XMS_ITS | Summary of Care ---
Author Organization [facility] Address [address] [place], [place] [address]- Care Team Providers Care Hand Launderer Name Role Phone Lazara Casas DO Primary Care Physician [phone] Encounter [facility] [id number] Date(s): 05/29/20 - 05/29/20 [place] [id number] Discharge Disposition: Home Attending Physician: Charmaine [...] daily, # 30 tab, 0 Refill(s), Pharmacy: [facility] #0621 Start Date: 10/31/17 Status: Ordered atorvastatin 40 mg oral tablet 40 mg 1 tab, PO, qPM, # 30 tab, 0 Refill(s), [facility] Start Date: 10/31/17 Status: Ordered chlorthalidone 25 mg oral tablet 25 mg 1 tab, PO, daily, 0 Refill(s) Start Date: 02/25/20 Status: Ordered Compazine 10 mg oral tablet 10 mg 1 tab, PO, q6hr, PRN Nausea/Vomiting, # 30 tab, 2 Refill(s), Pharmacy: [facility] #[id number], 180.34, cm, 03/21/20 10:24:00 EST, Height, 132, kg, 03/21/20 10:24:00 EST, Actual Weight Start Date: 03/21/20 Status: Ordered dexamethasone 4 mg oral tablet 4 mg 1 tab, PO, BID, for 3 days starting the day before chemo, # 30 tab, 0 Refill(s), Pharmacy: [facility] #[id number], 180.34, cm, 03/21/20 10:24:00 EST, Height, 132, kg, 03/21/20 10:24:00 EST,Actual Weight Start Date: 03/21/20 Status: Ordered eplerenone 50 mg oral tablet 50 mg 1 tab, PO, daily, 0 Refill(s) Start Date: 02/25/20 Status: Ordered felodipine 10 mg oral tablet, extended release 10 mg 1 tab, PO, daily, # 30 tab, 0 Refill(s), [facility] Start Date: 10/31/17 Status: Ordered folic acid 1 mg oral tablet 1 mg 1 tab, PO, daily, Take once daily starting 5 - 7 days before chemotherapy., # 30 tab, 5 Refill(s), Pharmacy: [facility] #[id number], 180.34, cm, 03/21/20 10:24:00 EST, Height, 132, kg, 03/21/20 10:24:00 EST, Actual Weight Start Date: 03/21/20 Status: Ordered lisinopril 40 mg oral tablet 40 mg 1 tab, PO, daily, # 30 tab, 0 Refill(s), [facility] Start Date: 10/31/17 Status: Ordered Metoprolol Succinate ER 100 mg oral tablet, extended release 100 mg 1 tab, PO, qPM, # 30 tab, 0 Refill(s), [facility] Start Date: 10/31/17 Status: Ordered ondansetron 4 mg oral tablet 4 mg 1 tab, PO, q8hr, PRN nausea/vomiting, # 20 tab, 2 Refill(s), Pharmacy: [facility] #[id number], 180.34, cm, 03/21/20 10:24:00 EST, Height, 132, [...]
--- OUTSIDE RECORDS SUMMARY | 2023-10-06 08:48 | XMS_ITS | Summary of Care ---
/Man Author Organization [facility] Address [address] [place], [place] [address]- Care Team Providers Care Dental Patient Coordinator Name Role Phone Lazara Casas DO Primary Care Physician Encounter [facility] [id number] Date(s): 06/27/20 - 06/27/20 [place] [id number] Discharge Disposition: Home Attending Physician: Kelli Leyva MD Referring Physician: Lamont Recinos MD Problem List Condition Effective Dates Status [...] daily, # 30 tab, 0 Refill(s), [facility]acy: [facility] Start Date: 10/31/17 Status: Ordered atorvastatin 40 mg oral tablet 40 mg 1 tab, PO, qPM, # 30 tab, 0 Refill(s), [facility] Start Date: 10/31/17 Status: Ordered chlorthalidone 25 mg oral tablet 25 mg 1 tab, PO, daily, 0 Refill(s) Start Date: 02/25/20 Status: Ordered Compazine 10 mg oral tablet 10 mg 1 tab, PO, q6hr, PRN Nausea/Vomiting, # 30 tab, 2 Refill(s), Pharmacy: [facility] #[id number], 180.34, cm, 03/21/20 10:24:00 EST, Height, 132, kg, 03/21/20 10:24:00 EST, Actual Weight Start Date: 03/21/20 Status: Ordered dexamethasone 4 mg oral tablet 4 mg 1 tab, PO, BID, for 3 days starting the day before chemo, # 30 tab, 0 Refill(s), Pharmacy: [facility] #[id number], 180.34, cm, 03/21/20 10:24:00 EST, Height, 132, kg, 03/21/20 10:24:00 EST,Actual Weight Start Date: 03/21/20 Status: Ordered eplerenone 50 mg oral tablet 50 mg 1 tab, PO, daily, 0 Refill(s) Start Date: 02/25/20 Status: Ordered felodipine 10 mg oral tablet, extended release 10 mg 1 tab, PO, daily, # 30 tab, 0 Refill(s), [facility] Start Date: 10/31/17 Status: Ordered folic acid 1 mg oral tablet 1 mg 1 tab, PO, daily, Take once daily starting 5 - 7 days before chemotherapy., # 30 tab, 5 Refill(s), Pharmacy: [facility] #[id number], 180.34, cm, 03/21/20 10:24:00 EST, Height, 132, kg, 03/21/20 10:24:00 EST, Actual Weight Start Date: 03/21/20 Status: Ordered lisinopril 40 mg oral tablet 40 mg 1 tab, PO, daily, # 30 tab, 0 Refill(s), [facility] Start Date: 10/31/17 Status: Ordered Metoprolol Succinate ER 100 mg oral tablet, extended release 100 mg 1 tab, PO, qPM, # 30 tab, 0 Refill(s), [facility] Start Date: 10/31/17 Status: Ordered ondansetron 4 mg oral tablet 4 mg 1 tab, PO, q8hr, PRN nausea/vomiting, # 20 tab, 2 Refill(s), Pharmacy: [facility] #[id number], 180.34, cm, 03/21/20 10:24:00 EST, Height, 132, [...]
--- OUTSIDE RECORDS SUMMARY | 2023-10-06 08:48 | XMS_ITS | Summary of Care ---
Author Organization [facility] Address [address] [place], [place] [id number]- Care Team Providers Care Television News Anchor Name Role Phone Lazara Casas DO Primary Care Physician Encounter [facility] [id number] Date(s): 02/01/20 - 02/02/20 [place] [id number] Discharge Disposition: Home Attending Physician: Axel Ponce MD Problem List Condition Effective Dates Status Health Status Inform ant Essential hypertension(Confirmed) Active Hyperlipemia(Confirmed) Active Urinary urgency due to benig n prostatic hypertrophy(Confirmed) Active Allergies, Adverse Reactions, Alerts No Known Allergies Medications aspirin 81 mg oral delayed release tablet 81 mg 1 tab, PO, daily, # 30 tab, 0 Refill(s), Pharmacy: [facility] #0621 Start Date: 10/31/17 Status: Ordered atorvastatin 40 mg oral tablet 40 mg 1 tab, PO, qPM, # 30 tab, 0 Refill(s), [facility] Start Date: 10/31/17 Status: Ordered chlorthalidone 25 mg oral tablet 50 mg 2 tab, PO, daily, # 30 tab, 0 Refill(s), [facility] Start Date: 10/31/17 Status: Ordered felodipine 10 mg oral tablet, extended release 10 mg 1 tab, PO, daily, # 30 tab, 0 Refill(s), [facility] Start Date: 10/31/17 Status: Ordered lisinopril 40 mg oral tablet 40 mg 1 tab, PO, daily, # 30 tab, 0 Refill(s), [facility] Start Date: 10/31/17 Status: Ordered Metoprolol [...]
--- OUTSIDE RECORDS SUMMARY | 2023-10-06 08:48 | XMS_ITS | Summary of Care ---
/Man Author Organization [facility] Address [address] [place], [place] [address]- Care Team Providers Care Community Health Representative Name Role Phone Lazara Casas DO Primary Care Physician Encounter [facility] [id number] Date(s): 08/18/20 - 08/18/20 [place] [id number] Discharge Disposition: Home Attending Physician: [...] daily, # 30 tab, 0 Refill(s), Pharmacy: [facility] #0621 Start Date: 10/31/17 Status: Ordered atorvastatin 40 mg oral tablet 40 mg 1 tab, PO, qPM, # 30 tab, 0 Refill(s), Pharmacy: [facility] #0621 Start Date: 10/31/17 Status: Ordered chlorthalidone 25 mg oral tablet 25 mg 1 tab, PO, daily, 0 Refill(s) Start Date: 02/25/20 Status: Ordered Compazine 10 mg oral tablet 10 mg 1 tab, PO, q6hr, PRN Nausea/Vomiting, # 30 tab, 2 Refill(s), Pharmacy: [facility] #[id number], 180.34, cm, 03/21/20 10:24:00 EST, Height, 132, kg, 03/21/20 10:24:00 EST, Actual Weight Start Date: 03/21/20 Status: Ordered dexamethasone 4 mg oral tablet 4 mg 1 tab, PO, BID, for 3 days starting the day before chemo, # 30 tab, 0 Refill(s), Pharmacy: [facility] #[id number], 180.34, cm, 03/21/20 10:24:00 EST, Height, 132, kg, 03/21/20 10:24:00 EST,Actual Weight Start Date: 03/21/20 Status: Ordered eplerenone 50 mg oral tablet 50 mg 1 tab, PO, daily, 0 Refill(s) Start Date: 02/25/20 Status: Ordered felodipine 10 mg oral tablet, extended release 10 mg 1 tab, PO, daily, # 30 tab, 0 Refill(s), [facility] Start Date: 10/31/17 Status: Ordered folic acid 1 mg oral tablet 1 mg 1 tab, PO, daily, Take once daily starting 5 - 7 days before chemotherapy., # 30 tab, 5 Refill(s), Pharmacy: [facility] #[id number], 180.34, cm, 03/21/20 10:24:00 EST, Height, 132, kg, 03/21/20 10:24:00 EST, Actual Weight Start Date: 03/21/20 Status: Ordered lisinopril 40 mg oral tablet 40 mg 1 tab, PO, daily, # 30 tab, 0 Refill(s), [facility] Start Date: 10/31/17 Status: Ordered Metoprolol Succinate ER 100 mg oral tablet, extended release 100 mg 1 tab, PO, qPM, # 30 tab, 0 Refill(s), [facility] Start Date: 10/31/17 Status: Ordered ondansetron 4 mg oral tablet 4 mg 1 tab, PO, q8hr, PRN nausea/vomiting, # 20 tab, 2 Refill(s), Pharmacy: [facility] #[id number], 180.34, cm, 03/21/20 10:24:00 EST, Height, 132, kg, 03/21/20 10:24:00 EST, Actual Weight Start Date: 03/21/20 Status: Ordered [employer] COVID-19 Vaccine 30 mcg/0.3 mL preservative-free intramuscular [...]
--- OUTSIDE RECORDS SUMMARY | 2023-10-06 08:48 | XMS_ITS | Summary of Care ---
/Man Author Organization [facility] Address [address] [place] [id number]- Care Team Providers Care Senior Program Analyst Name Role Phone Lazara Casas DO Primary Care Physician [phone] Encounter [facility] [id number] Date(s): 07/25/23 - 07/25/23 [place] [id number] Discharge Disposition: Home Attending Physician: Flaquita Johnson Problem List Condition Confirmation Course Effective Dates [...] Wheezing, # 18 g, 0 Refill(s), Pharmacy: [facility] #[id number], 182, cm, 03/04/22 16:37:00 EST, Height, 115.7, [...]
--- OUTSIDE RECORDS SUMMARY | 2023-10-06 08:48 | XMS_ITS | Summary of Care ---
Author Organization [facility] Address [address] [place] [address]- Care Team Providers Care Conveyor System Operator Name Role Phone Lazara Casas DO Primary Care Physician Encounter [facility] [id number] Date(s): 09/21/19 - 09/21/[address] [address]- Discharge Disposition: Home Attending Physician: Kt Brown [...] daily, # 30 tab, 0 Refill(s), Pharmacy: [facility] #0621 Start Date: 10/31/17 Status: Ordered atorvastatin 40 mg oral tablet 40 mg 1 tab, PO, qPM, # 30 tab, 0 Refill(s), [facility]: [facility] Start Date: 10/31/17 Status: Ordered chlorthalidone 25 mg oral tablet 50 mg 2 tab, PO, daily, # 30 tab, 0 Refill(s), [facility]: [facility] Start Date: 10/31/17 Status: Ordered felodipine 10 mg oral tablet, extended release 10 mg 1 tab, PO, daily, # 30 tab, 0 Refill(s), [facility]acy: [facility]06[facility] Start Date: 10/31/17 Status: Ordered lisinopril 40 mg oral tablet 40 mg 1 tab, PO, daily, # 30 tab, 0 Refill(s), Pharmacy: [facility] #0621 Start Date: 10/31/17 Status: Ordered Metoprolol Succinate ER 100 mg oral tablet, extended release 100 mg 1 tab, PO, qPM, # 30 tab, 0 Refill(s), Pharmacy: [facility] #0621 Start Date: 10/31/17 Status: Ordered Immunizations Given and Recorded Vaccine Date Status Refusal Reason pneumococcal 23-polyvalent vaccine 1 10/31/17 Give n 1Early/Late Reason: Nursing Judgment Social History Social History Type Response
--- OUTSIDE RECORDS SUMMARY | 2023-10-06 08:48 | XMS_ITS | Summary of Care ---
/Man Author Organization [facility] Address [address] [place] [id number]- Care Team Providers Care Glycerin Supervisor Name Role Phone Lazara Casas DO Primary Care Physician Encounter [facility] [id number] Date(s): 09/24/20 - 09/24/20 [place] [id number] Discharge Disposition: Home Attending Physician: Joselyn TERRAZAS, Selvin Miller Problem List Condition Effective Dates Status Health [...] daily, # 30 tab, 0 Refill(s), Pharmacy: [facility] #06[facility] Start Date: 10/31/17 Status: Ordered atorvastatin 40 mg oral tablet 40 mg 1 tab, PO, qPM, # 30 tab, 0 Refill(s), [facility]acy: [facility] #06[facility] Start Date: 10/31/17 Status: Ordered eplerenone 50 mg oral tablet 50 mg 1 tab, PO, daily, 0 Refill(s) Start Date: 02/25/20 Status: Ordered felodipine 10 mg oral tablet, extended release 10 mg 1 tab, PO, daily, # 30 tab, 0 Refill(s), Pharmacy: [facility] #0621 Start Date: 10/31/17 Status: Ordered lisinopril [...] [facility]PITAL/[facility] #0621 Start Date: 10/31/17 Status: Ordered [employer] COVID-19 Vaccine 30 mcg/0.3 mL preservative-free intramuscular [...]
--- OUTSIDE RECORDS SUMMARY | 2023-10-06 08:48 | XMS_ITS | Summary of Care ---
Author Organization [facility] Address [address] [place], [place] [address]- Care Team Providers Care Qa Reviewer Name Role Phone Lazara Casas DO Primary Care Physician Encounter [facility] [id number] Date(s): 03/21/20 - 03/21/20 [place] [id number] Discharge Disposition: Home Attending Physician: Charmaine Perez MD Problem List Condition Effective Dates Status Health Status Inform ant Essential hypertension(Confirmed) Active Hyperlipemia(Confirmed) Active Lung cancer(Confirmed) Active Urinary urgency due to benig n prostatic hypertrophy(Confirmed) Active Allergies, Adverse Reactions, Alerts No Known Allergies Medications aspirin 81 mg oral delayed release tablet 81 mg 1 tab, PO, daily, # 30 tab, 0 Refill(s), Pharmacy: [facility] #0621 Start Date: 10/31/17 Status: Ordered atorvastatin 40 mg oral tablet 40 mg 1 tab, PO, qPM, # 30 tab, 0 Refill(s), [facility] Start Date: 10/31/17 Status: Ordered chlorthalidone 25 mg oral tablet 25 mg 1 tab, PO, daily, 0 Refill(s) Start Date: 02/25/20 Status: Ordered Compazine 10 mg oral tablet 10 mg 1 tab, PO, q6hr, PRN Nausea/Vomiting, # 30 tab, 2 Refill(s), Pharmacy: [facility] #[id number], 180.34, cm, 03/21/20 10:24:00 EST, Height, 132, kg, 03/21/20 10:24:00 EST, Actual Weight Start Date: 03/21/20 Status: Ordered dexamethasone 4 mg oral tablet 4 mg 1 tab, PO, BID, for 3 days starting the day before chemo, # 30 tab, 0 Refill(s), Pharmacy: [facility] #[id number], 180.34, cm, 03/21/20 10:24:00 EST, Height, 132, kg, 03/21/20 10:24:00 EST,Actual Weight Start Date: 03/21/20 Status: Ordered eplerenone 50 mg oral tablet 50 mg 1 tab, PO, daily, 0 Refill(s) Start Date: 02/25/20 Status: Ordered felodipine 10 mg oral tablet, extended release 10 mg 1 tab, PO, daily, # 30 tab, 0 Refill(s), [facility] Start Date: 10/31/17 Status: Ordered folic acid 1 mg oral tablet 1 mg 1 tab, PO, daily, Take once daily starting 5 - 7 days before chemotherapy., # 30 tab, 5 Refill(s), Pharmacy: [facility] #[id number], 180.34, cm, 03/21/20 10:24:00 EST, Height, 132, kg, 03/21/20 10:24:00 EST, Actual Weight Start Date: 03/21/20 Status: Ordered lisinopril 40 mg oral tablet 40 mg 1 tab, PO, daily, # 30 tab, 0 Refill(s), [facility] Start Date: 10/31/17 Status: Ordered Metoprolol Succinate ER 100 mg oral tablet, extended release 100 mg 1 tab, PO, qPM, # 30 tab, 0 Refill(s), [facility] Start Date: 10/31/17 Status: Ordered ondansetron 4 mg oral tablet 4 mg 1 tab, PO, q8hr, PRN nausea/vomiting, # 20 tab, 2 Refill(s), Pharmacy: [facility] #[id number], 180.34, cm, 03/21/20 10:24:00 EST, Height, 132, [...]
--- OUTSIDE RECORDS SUMMARY | 2023-10-06 08:48 | XMS_ITS | Summary of Care ---
/Man Author Organization [facility] Address [address] [id number]- Care Team Providers Care Bareback Rider Name Role Phone Lazara Casas DO Primary Care Physician [phone] Encounter [facility] [id number] Date(s): 09/26/20 - 09/26/20 [place] [id number] Discharge Disposition: Home Attending Physician: Selvin [...] daily, # 30 tab, 0 Refill(s), [facility]: [facility] Start Date: 10/31/17 Status: Ordered atorvastatin 40 mg oral tablet 40 mg 1 tab, PO, qPM, # 30 tab, 0 Refill(s), [facility]: [facility] Start Date: 10/31/17 Status: Ordered eplerenone 50 mg oral tablet 50 mg 1 tab, PO, daily, 0 Refill(s) Start Date: 02/25/20 Status: Ordered felodipine 10 mg oral tablet, extended release 10 mg 1 tab, PO, daily, # 30 tab, 0 Refill(s), Pharmacy: [facility] #0621 Start Date: 10/31/17 Status: Ordered lisinopril 40 mg oral tablet 40 mg 1 tab, PO, daily, # 30 tab, 0 Refill(s), Pharmacy: [facility] #0621 Start Date: 10/31/17 Status: Ordered Metoprolol Succinate ER 100 mg oral tablet, extended release 100 mg 1 tab, PO, qPM, # 30 tab, 0 Refill(s), Pharmacy: [facility]acy #0621 Start Date: 10/31/17 Status: Ordered [employer] COVID-19 Vaccine 30 mcg/0.3 mL preservative-free [...]
--- OUTSIDE RECORDS SUMMARY | 2023-10-06 08:48 | XMS_ITS | Summary of Care ---
/Man Author Organization [facility] Address [address] [place], [place] [address]- Care Team Providers Care Deployment Engineer Name Role Phone Lazara Casas DO Primary Care Physician Encounter [facility] [phone] Date(s): 03/01/22 - 03/08/22 [place] [id number] Encounter Diagnosis RLL pneumonia(Discharge Diagnosis) - 03/01/22 Acute COVID-19(Discharge Diagnosis) - 03/01/22 Discharge Disposition: Home Attending Physician: Annette Sheth DO Admitting Physician: Annette Sheth DO Problem List Condition Effective Dates Status [...] Wheezing, # 18 g, 0 Refill(s), Pharmacy: [facility] #[id number], 182, cm, 03/04/22 16:37:00 EST, Height, 115.7, kg, 03/04/22 16:37:00 EST, Actual Weight Start Date: 03/08/22 Status: Ordered allopurinol 100 mg oral tablet 200 mg 2 tab, PO, daily, 0 Refill(s) Start Date: 03/01/22 Status: Ordered benzonatate 100 mg oral capsule 100 mg 1 cap, PO, TID, PRN Cough, X 10 days, # 30 cap, 0 Refill(s), Pharmacy: [facility] #[id number], 182, cm, 03/04/22 16:37:00 EST, Height, 115.7, kg, 03/04/22 16:37:00 EST, Actual Weight Start Date: 03/08/22 Stop Date: 03/18/22 Status: Ordered dexamethasone 6 mg oral tablet 6 mg 1 tab, PO, daily, # 3 tab, 0 Refill(s), [id number], 182, cm, 03/04/22 16:37:00 EST, Height, 115.7, kg, 03/04/22 16:37:00 EST, Actual Weight Start Date: 03/08/22 Stop Date: 03/12/22 Status: Ordered Ecotrin Adult Low Strength 81 [...] daily, # 30 tab, 0 Refill(s), Pharmacy: [facility] #[id number], 182, cm, 03/04/22 16:37:00 EST, Height, 115.7, [...]
--- OUTSIDE RECORDS SUMMARY | 2023-10-06 08:49 | XMS_ITS | Summary of Care ---
/Man Author Organization [facility] Address [address] [place], [place] [id number]- Care Team Providers Care Business Rules Analyst Name Role Phone Lazara Casas DO Primary Care Physician [phone] Encounter [facility] [id number] Date(s): 12/12/20 - 12/12/[address] [place] [id number] Discharge Disposition: [...] daily, # 30 tab, 0 Refill(s), [facility] Start Date: 10/31/17 Status: Ordered atorvastatin 40 mg oral tablet 40 mg 1 tab, PO, qPM, # 30 tab, 0 Refill(s), [facility] Start Date: 10/31/17 Status: Ordered eplerenone 50 mg oral tablet 50 mg 1 tab, PO, daily, 0 Refill(s) Start Date: 02/25/20 Status: Ordered felodipine 10 mg oral tablet, extended release 10 mg 1 tab, PO, daily, # 30 tab, 0 Refill(s), Pharmacy: [facility] #0621 Start Date: 10/31/17 Status: Ordered lisinopril 40 mg oral tablet 40 mg 1 tab, PO, daily, # 30 tab, 0 Refill(s), [facility] Start Date: 10/31/17 Status: Ordered Metoprolol Succinate ER 100 mg oral tablet, extended release 100 mg 1 tab, PO, qPM, # 30 tab, 0 Refill(s), [facility] Start Date: 10/31/17 Status: Ordered [employer] COVID-19 Vaccine 30 mcg/0.3 mL preservative-free intramuscular [...]
--- OUTSIDE RECORDS SUMMARY | 2023-10-06 08:49 | XMS_ITS | Summary of Care ---
/Man Author Organization [facility] Address [address] [place] [address]- Care Team Providers Care Dry Starch Operator Name Role Phone Lazara Casas DO Primary Care Physician Encounter [facility] [phone] Date(s): 09/12/20 - 09/12/20 [place] [id number] Discharge Disposition: Home Attending [...] daily, # 30 tab, 0 Refill(s), Pharmacy: [facility] #[id number] Start Date: 10/31/17 Status: Ordered atorvastatin 40 mg oral tablet 40 mg 1 tab, PO, qPM, # 30 tab, 0 Refill(s), Pharmacy: [facility] #[id number] Start Date: 10/31/17 Status: Ordered eplerenone 50 mg oral tablet 50 mg 1 tab, PO, daily, 0 Refill(s) Start Date: 02/25/20 Status: Ordered felodipine 10 mg oral tablet, extended release 10 mg 1 tab, PO, daily, # 30 tab, 0 Refill(s), Pharmacy: [facility] #[id number] Start Date: 10/31/17 Status: Ordered lisinopril 40 mg oral tablet 40 mg 1 tab, PO, daily, # 30 tab, 0 Refill(s), Pharmacy: [facility]/pharmacy #[id number] Start Date: 10/31/17 Status: Ordered Metoprolol Succinate ER 100 mg oral tablet, extended release 100 mg 1 tab, PO, qPM, # 30 tab, 0 Refill(s), Pharmacy: [facility]/pharmacy #[id number] Start Date: 10/31/17 Status: Ordered [employer] COVID-19 Vaccine 30 mcg/0.3 mL preservative-free intramuscular [...]
--- NOTE | 2023-10-06 09:24 | HO.ANESPROP2 ---
[facility] Active Problems Active Problems: All Active Problems Neurogenic claudication (Acute) Past Medical History Medical History Chronic renal insufficiency Compression fracture of T12 vertebra Murmur Lung cancer Arthritis CHF (congestive heart failure) Iron deficiency anemia Hypothyroid Sleep apnea Gout CAD (coronary artery disease) Diabetes GERD (gastroesophageal reflux disease) Elevated cholesterol HTN (hypertension) Family History Family history of problems with anesthesia: No Surgical History Surgical History H/O colonoscopy Hx of inguinal hernia repair History of back surgery History of lung surgery Hx of heart artery stent History of Problems with Anesthesia: No Social History Social History Are you a primary critical care rn to a significant other at home: No Do you presently have visiting nurse or other home services: No Patient Tobacco Use Status: Former Tobacco user Tobacco use type: Cigarette Years Smoked: 40 Use of substances other than those prescribed or required for medical reasons: No Have you been hit, kicked, punched, or otherwise hurt by someone within the past year? If so, by whom?: No Are you DNR?: No Advance Directives Information Provided: Yes (as above noted) Advance Directives on File: No Recently lost weight without trying: No Eating poorly because of decreased appetite: No Nutrition Risks: No Nutritional Risk Meds Allergies Allergy/AdvReac Type Severity Reaction Status Date / Time No Known Allergies Allergy Verified 05/25/23 14:40 Active Medications: Current Medications Lactated Ringer's (Lr) 1,000 mls @ 50 mls/hr IVCONT .Q20H COREEN Cefazolin Sodium/Dextrose (Ancef) 2 gm in 50 mls @ 100 mls/hr IV PREOP ONE Stop: 10/06/23 09:27 Home Medications ?Medication ?Instructions ?Recorded ?Confirmed ?Last Taken ?Type allopurinol 100 mg tablet 200 mg PO QAM 05/25/23 10/06/23 10/05/23 History aspirin 81 mg tablet,delayed 81 mg PO QAM 05/25/23 10/06/23 10/05/23 History release atorvastatin 40 mg tablet 40 mg PO BEDTIME 05/25/23 10/06/23 10/05/23 History esomeprazole magnesium 40 mg 40 mg PO QAM 05/25/23 07/28/23 10/06/23 History capsule,delayed release lisinopril 40 mg tablet 40 mg PO QAM 05/25/23 07/28/23 Unknown History metoprolol succinate 100 mg 100 mg PO BEDTIME 05/25/23 07/28/23 10/06/23 History tablet,extended release 24 hr eplerenone 50 mg tablet 50 mg PO BEDTIME 07/27/23 10/06/23 10/05/23 History metformin 500 mg tablet 500 mg PO BID 07/27/23 10/06/23 10/05/23 History tamsulosin 0.4 mg capsule 0.4 mg PO BEDTIME 07/27/23 10/06/23 10/05/23 History docusate sodium 100 mg capsule 100 mg PO Q2D 07/28/23 07/28/23 Unknown History (Colace) ferrous sulfate 325 mg (65 mg 325 mg PO Q2D 07/28/23 07/28/23 Unknown History iron) tablet levothyroxine 100 mcg tablet 100 mcg PO QAM 07/28/23 07/28/23 10/06/23 History Exam Height,Weight and Vital Signs: Height 5 ft 11 in Weight 117.934 kg Last Vital Signs Pulse 74 07/28/23 12:17 Resp 20 07/28/23 12:17 BP 135/66 07/28/23 12:17 Pulse Ox 98 07/28/23 12:17 O2 Del Method Room Air 07/28/23 12:17 Pertinent Lab Results Pertinent Lab Results: Laboratory Tests 07/28/23 13:18 WBC 11.2 H RBC 3.46 L Hgb 6.1 L* Hct 24.0 L MCV 69.4 L MCH 17.6 L MCHC 25.4 L RDW 20.1 H Plt Count 275 MPV 9.7 Immature Gran % (Auto) 0.7 H Neut % (Auto) 75.3 H Lymph % (Auto) 12.3 L Logan % (Auto) 7.9 Eos % (Auto) 3.2 Baso % (Auto) 0.6 Lymph # (Auto) 1.4 Logan # (Auto) 0.9 Eos # (Auto) 0.4 Baso # (Auto) 0.1 Abs Immat Gran (auto) 0.08 H Absolute Neuts (auto) 8.4 H Absolute Nucleated RBC 0.000 Nucleated RBC % (auto) 0.0 Smear Path Review SEE NOTE Sodium 141 Potassium 5.2 H Chloride 107 Carbon Dioxide 22 Anion Gap 17 BUN 14 Creatinine 1.45 H Estim Creat Clear Calc 59.8 Estimated GFR 48 Random Glucose 86 Estimat Average Glucose 100 Hemoglobin A1c % 5.1 Calcium 9.8 TSH 0.52 Airway Mallampati Class: III TM Dist: >3cm Neck ROM: Full Heart: RRR Lungs: CTA Assessment and Plan Assessment Anesthesia Assessment: Anesthesia Plan Discussed Final Anesthetic Review Family History of Problems with Anesthesia: No History of Problems with Anesthesia: No Anesthetic Plan Anesthetic Plan: GA Disposition: Standard PACU
[2023-10-06] MEDS: Lactated Ringers 1,000 ML 50 ML IVCONT (09:27)
[2023-10-06] MEDS: Gabapentin 300 MG CAPSULE PO (09:27)
[2023-10-06] MEDS: methocarbamoL 750 MG TABLET PO (09:27)
[2023-10-06 10:06] LABS: Glucose, Whole Blood 114 mg/dL (60-115)
--- NOTE | 2023-10-06 10:14 | MHC.SHP ---
Pre-Procedural Eval Section A - 24 Hr Update-Section A only Date of Service: 10/06/23 Section B - Complete if H&P > 30 days Chief Complaint: Other symptoms and signs involving the nervous sys Allergies: Allergies Allergy/AdvReac Type Severity Reaction Status Date / Time No Known Allergies Allergy Verified 05/25/23 14:40 Review of Systems Sugical H&P ROS: Negative: Constitution, Cardiovascular, Respiratory, Neurological, Psychiatric, Hem-Onc, Allergic/Immunologic, Gastrointestinal, Genitourinary, Musculoskeletal, Integumentary, Endocrine and Eyes/Ears/Nose/Throat Exam Surgical H&P Exam: Not Evaluated: HEENT, Not Evaluated: Heart, Not Evaluated: Lungs, Not Evaluated: Extremities, Not Evaluated: Abdomen, Not Evaluated: Skin and Not Evaluated: Neurological Exam Comment: Patient is well-appearing in no acute distress. A&0X4. Surgical site appears clean with no evidence of rash. Plan Diagnosis/Plan: Unchanged I have reviewed the history and physical and performed a pertinent physical examination on my patient. No changes have occurred unless specified. PLAN REMAINS THE SAME LEFT-SIDED L3-5 LUMBAR DECOMPRESSION. Time Spent With Patient Time: Total time managing care of this patient today __15__ minutes.
--- NOTE | 2023-10-06 11:40 | PM.DS ---
DS: Providers Provider Date of Service: 10/06/23 Primary care physician: Lazara Casas DO DS: Summary Time Attestation Discharge Coordination Time (in mins): 15 Quality: Safe Use of Opioids Does Pt have an Active Cancer Diagnosis on the Problem List?: No Quality: Stroke Does the patient have a stroke diagnosis?: No Physical Exam Vital Signs: Vital Signs: Last Vital Signs Temp 97.6 F 10/06/23 09:29 Pulse 70 10/06/23 09:29 Resp 16 10/06/23 09:29 BP 164/81 H 10/06/23 09:29 Pulse Ox 93 10/06/23 09:29 O2 Del Method Room Air 10/06/23 09:29 BMI result Body Mass Index 36.3 DS: Data Data Completed and Pending Labs on day of discharge: Laboratory Results - last 24 hr 10/06/23 09:43 POC Glucose 114 Discharge Plan Discharge Patient Disposition: Home, Self-Care Referrals: Lazara Casas DO [Primary Care Provider] - 1 Week Discharge Medications: New oxycodone 5 mg tablet 5 mg PO Q6H PRN (Reason: pain (scale score 7-10)) Qty: 30 0RF Rx Instructions: Partial Fill upon patient request. Continued metformin 500 mg tablet 500 mg PO BID tamsulosin 0.4 mg capsule 0.4 mg PO BEDTIME eplerenone 50 mg tablet 50 mg PO BEDTIME levothyroxine 100 mcg tablet 100 mcg PO QAM ferrous sulfate 325 mg (65 mg iron) Tablet 325 mg PO Q2D docusate sodium [Colace] 100 mg Capsule 100 mg PO Q2D lisinopril 40 mg tablet 40 mg PO QAM allopurinol 100 mg tablet 200 mg PO QAM esomeprazole magnesium 40 mg capsule,delayed release(DR/EC) 40 mg PO QAM metoprolol succinate 100 mg tablet extended release 24 hr 100 mg PO BEDTIME atorvastatin 40 mg tablet 40 mg PO BEDTIME Held aspirin 81 mg tablet,delayed release (DR/EC) 81 mg PO QAM Hold Instructions: Resume on 10/09/23. Discharge Orders: Discharge Order (Routine); Ordered 10/06/23 Ordered By: Rocco Lambert Diet: Advance to usual diet Activity on Discharge: As tolerated Activity Restrictions/Additional Instructions: After your spinal surgery we ask you to observe the following restrictions/guidelines: Activity: It is normal to feel some discomfort as you increase your activity, but that will improve with time. We ask you avoid heavy lifting or acitivities that cause pain. As a general rule, 8lbs is a safe limit for lifting right after surgery. Walk as much as you feel comfortable but not to exhaustion. You will feel extra tired the first few days after surgery. Stay well hydrated. It is OK to walk up and down stairs You may return to driving when you are off narcotics (such as vicodin, oxycodone, dilaudid, etc), and you are back to normal functional capacity. If you have any concerns please check with office before driving. Return to work is specific to each patient and each surgery, so please speak with your doctor/PA at first follow up. Please bring paperwork such as FMLA at that time if you need it filled out. Medications: We will give you a short supply of narcotics after surgery (usually one weeks worth). If you need more please call the office but do not use more than prescribed. You will need to give our office 48 hours notice if you need narcotics refilled and we do not fill narcotics on weekends or evenings. If you are on a narcotic, it is a good idea to take a stool softener such as colace or senna to avoid constipation If you take blood thinner such as aspirin, Plavix, Coumadin, Effient, Eliquis etc for conditions such as Afib, DVT, Pulmonary embolus, coronary disease, stents etc please speak with your surgeon about specific details as to when you can resume these medications. You can resume NSAIDs on post op day 1 (eg: Motrin, Naproxen, etc). Follow up: Please call the office, , after surgery to arrange a 3 week follow up for wound check. Wound Care: You may remove your dressing on the first day after surgery. ?You may ?leave open to air. Please do not remove the steri strips underneath. they will fall off on their own in one week. IT IS NORMAL FOR THE WOUND TO OOZE OR BE BLOODY FOR A FEW DAYS AFTER SURGERY. ?IF THIS HAPPENS JUST PLACE NEW DRESSING OVER IT TO AVOID STAINING CLOTHES. You may shower on post op day # 1 We ask that you do not let the water soak the wound. If it does get wet, just towel dry lightly. Please do not scrub your incision or place any type of chemical/ointment on the wound. No tub baths, pools or jacuzzis for one month. If you have any leaking or redness from your wound, or fevers, please call the office. Print Language: Portuguese
--- NOTE | 2023-10-06 13:36 | W.PM.OPN ---
Operative Note Operative Note Date of Service: 10/06/23 Narrative: Preoperative Diagnosis: L3-4 and L4-5 spinal stenosis/lateral recess stenosis/neural foraminal stenosis Operation: Left L3-4 and L4-5 Laminotomy, Partial facetectomy and foraminotomy with use of microscope Consent Informed Consent was obtained for this operation. I have explained the nature, purpose and benefits of the operation. I have discussed the risks and benefit of the operation including possible complications or adverse events with patient/family. Alternative(s) were discussed with the patient with their relative benefits and risks as well as the consequences of not accepting the operation were included in obtaining consent. Surgeon: NURY ARIZMENDI MD, PHD Procedure Assisted By: MJ Davis Description of Procedure This patient is suffering from neurogenic claudication. MRI shows spinal stenosis at L3-4 and L4-5. I offered the patient a left-sided approach for bilateral decompression. The procedure and complications were explained. The patient was consented. The patient was brought to the operating room and endotracheally intubated. The patient was turned in prone position on the Raimundo frame. Prep and drape was done followed by timeout. The Physician post production assistant provided access. A mid lumbar incision was made followed by release of the paravertebral muscle on the left side to expose the L3-L5 laminae and facet joints. An intraoperative x-ray was obtained to confirm the correct level. The microscope was brought in. I took over the procedure. The high-speed drill was used to do a left L3-4 and L4-5 laminotomy until flavum ligament was reached. First I address the L3-4 level. A partial facetectomy was done after which the flavum ligament was opened and resected to decompress the underlying thecal sac. The L4 nerve root was decompressed in the lateral recess until disappeared in the foramen. I crossed over the midline and decompressed as much as possible on the contralateral side. Then I turned the attention to the L4-5 level. Again a partial facetectomy was done. I opened up the flavum ligament and identified the underlying dura. Several layers of flavum ligament were coronary resected to decompress the thecal sac. I undercut the spinous process and reached contralaterally to decompress more of the thecal sac. Finally I made sure that the left L5 nerve root at sufficient space in the lateral recess. Extensive hemostasis was done as this patient was still on aspirin. In the end good hemostasis was obtained. The physician post production assistant close the Incision in 2 layers. Steri-Strips were used to approximate incision. An OpSite with Tegaderm was used to cover the incision. All sponge needle counts were correct. Patient was extubated and transported in stable is to recovery room. Anesthesia: General Estimated Blood Loss (ml): 30 mL Complications: None Duration of Surgery: 90 Minutes Postoperative Plan: Discharge to home
--- NOTE | 2023-10-06 14:26 | HO.POSTANES ---
Post Anesthesia Evaluation Post Anesthesia Evaluation Date of Service: 10/06/23 Vital Signs: Vital Signs Temp Pulse Resp BP Pulse Ox O2 Del Method O2 Flow Rate 10/06/23 14:06 66 16 168/86 H 97 Simple Mask 4 10/06/23 14:01 69 16 164/84 H 97 Simple Mask 8 10/06/23 13:56 98.2 F 72 16 172/84 H 98 Simple Mask 8 10/06/23 09:29 97.6 F 70 16 164/81 H 93 Room Air Anesthesia: General Endotracheal-GETA Mental Status: Awake Pain Control: Satisfactory Nausea/Vomiting: None Hydration: Adequate Anesthesia-Related Issues: No Anes. Related Issues
== END 2023-10-06 16:15 | disposition home or self-care (01) ==
PROVIDERS: Nurse Practitioner; PCP Family Medicine; Visit Provider Neurological Surgery
PROC: (CPT 63047; principal; 2023-10-06 12:30)
DX: M48.062 Spinal stenosis, lumbar region with neurogenic claudication (principal); M54.50 Low back pain, unspecified; R26.2 Difficulty in walking, not elsewhere classified; I25.10 Atherosclerotic heart disease of native coronary artery without angina pectoris; Z95.5 Presence of coronary angioplasty implant and graft; I10 Essential (primary) hypertension; D50.9 Iron deficiency anemia, unspecified; E11.9 Type 2 diabetes mellitus without complications; G47.33 Obstructive sleep apnea (adult) (pediatric); Z79.01 Long term (current) use of anticoagulants; Z79.82 Long term (current) use of aspirin; Z79.899 Other long term (current) drug therapy; Z79.84 Long term (current) use of oral hypoglycemic drugs; Z99.89 Dependence on other enabling machines and devices; Z87.891 Personal history of nicotine dependence; Z98.890 Other specified postprocedural states
CPT/HCPCS: 63047; 63048; 36415; 80048; 82947; 83036; 84443; 85025; 93005; J0131; J0690; J1100; J1885; J2250; J2405; J2704; J3010

== ENCOUNTER → 2023-10-06 08:44 | Outpatient (BNV) | payer MEDICARE, OTHER, SELFPAY | PROVIDERS: PCP Family Medicine; Visit Provider Physician Assistant | DX: M48.07 Spinal stenosis, lumbosacral region (principal); R29.818 Other symptoms and signs involving the nervous system | CPT/HCPCS: 63047; 63048; 99499 ==

== ENCOUNTER 2023-10-27 11:24 | Outpatient (AMB) | payer MEDICARE, OTHER, SELFPAY ==
--- NOTE | 2023-10-27 11:52 | A.SPINEOV_ITS ---
Intake Visit Reasons: 1st post op Intake Note: Mr. Shay is here today for his 1st post-op visit. Theatrical Agent Required: No Allergies No Known Allergies Allergy (Verified 10/27/23 11:53) Assessment & Plan Assessment & Plan (1) Neurogenic claudication: Code(s): R29.818 - Other symptoms and signs involving the nervous system Category: Medical Plan Procedure: Left L3-4 and L4-5 Laminotomy, Partial facetectomy and foraminotomy Nasrin comes in today for his 1st postoperative visit. To recap he was initially seen in our clinic for low back pain with radiation into his left lower extremity. He reports he sent us a letter a few weeks ago thanking our office for the great job we did with his care. No new neurological deficits. Patient is able to ambulate well, rises from a seated position without difficulty. Incision sites are closed, well healing, with no signs of drainage. We will follow-up with the patient in 6 weeks for their 2nd postoperative visit. At that time we will get x-rays to review with the patient. Coding Level of Care Code Global (93047) Diagnoses Neurogenic claudication R29.818
== END 2023-10-27 12:16 | disposition home or self-care (01) ==
PROVIDERS: PCP Family Medicine; Visit Provider Physician Assistant
DX: R29.818 Other symptoms and signs involving the nervous system (principal)
CPT/HCPCS: 99024

== ENCOUNTER → 2023-10-27 11:24 | Outpatient (BNVA) | payer MEDICARE, OTHER, SELFPAY | PROVIDERS: PCP Family Medicine; Visit Provider Physician Assistant | DX: Z48.811 Encounter for surgical aftercare following surgery on the nervous system (principal); Z98.890 Other specified postprocedural states; Z86.69 Personal history of other diseases of the nervous system and sense organs | CPT/HCPCS: 99212 ==

== ENCOUNTER 2023-12-08 10:27 | Outpatient (REF) | payer MEDICARE, OTHER, SELFPAY ==
--- NOTE | ~2023-12-08 | XR_ITS ---
EXAMINATION: XR LUMBOSACRAL SPINE CLINICAL INFORMATION: R29.818 - Other symptoms and signs involving the nervous system COMPARISON: 05/25/2023. TECHNIQUE: 4 views of the lumbar spine, inclusive of flexion and extension views, were obtained. FINDINGS: There is normal bony mineralization. There is no acute fracture, traumatic subluxation, or suspicious bone lesion. There is a chronic appearing approximately 40% anterior compression deformity of T12. This is stable. No additional compression deformity. Normal lordosis. No scoliosis. Alignment demonstrates a minimal 3 mm degenerative retrolisthesis of L3 on L4. Alignment is otherwise anatomic. Flexion and extension views demonstrate no significant change in the 3 mm retrolisthesis of L3 on L4. No new developing subluxation to suggest instability. Disc spaces demonstrate moderate narrowing T12-L1, L1-2, and L3-4. There is otherwise only minimal disc space narrowing. Facets are normally aligned. Mild facet arthropathy noted at at L4-S1. There are vascular calcifications in the soft tissues. No additional soft tissue abnormality is identified. XR/XR lumbar spine 4V min IMPRESSION: 1. No acute findings lumbar spine. 2. Mild to moderate spondylosis as detailed, most significant at L3-4. No evidence of instability on flexion and extension views. 3. Chronic 40% anterior compression deformity of T12. Electronically signed by: Ron Tristan MD 02/16/2024 11:27 AM [facility]
== END 2023-12-08 10:28 | disposition home or self-care (01) ==
LOC: HO.XRAY 10:27
PROVIDERS: PCP Family Medicine; Visit Provider Physician Assistant
DX: R29.818 Other symptoms and signs involving the nervous system (principal)
CPT/HCPCS: 72110; 99212

== ENCOUNTER → 2023-12-08 10:30 | Outpatient (BNV) | payer MEDICARE, OTHER, SELFPAY | PROVIDERS: PCP Family Medicine; Visit Provider Radiology Diagnostic Radiology | DX: M47.896 Other spondylosis, lumbar region (principal); S22.080A Wedge compression fracture of T11-T12 vertebra, initial encounter for closed fracture | CPT/HCPCS: 72110 ==

== ENCOUNTER 2023-12-08 11:01 | Outpatient (AMB) | payer MEDICARE, OTHER, SELFPAY ==
--- NOTE | 2023-12-08 11:11 | A.SPINEOV_ITS ---
Intake Visit Reasons: 2nd post op with xrays Intake Note: Mr. Shay is here today for his 2nd post-op visit with xrays. Pump Tester Required: No Allergies No Known Allergies Allergy (Verified 10/27/23 11:53) Assessment & Plan Assessment & Plan (1) Neurogenic claudication: Code(s): R29.818 - Other symptoms and signs involving the nervous system Category: Medical Plan Procedure: Left L3-4 and L4-5 Laminotomy, Partial facetectomy and foraminotomy Nasrin is a pleasant 73-year-old male who comes in today for a subsequent follow-up visit after having a L3-5 lumbar decompression completed by our service. He reports resolution of his leg pain and feels as though he was able to complete his regular activities of daily living without issue. The only time he gets slight twinges/pains in his low back if he is lifting or ?overdoing it. ? Overall he is very satisfied with the surgery and reports no questions/concerns. No new neurologic deficits. The patient ambulates very well and rises from a seated position without difficulty. His incision site is well healed. There is no need for continued routine follow-up his Nasrin. He may be discharged as a patient. Rocco Gudino MD,PhD [facility] Orders: Orders XR lumbar spine 4V min Today R29.818 - Other symptoms and signs involving the nervous system Coding Level of Care Code Global (14857) Diagnoses Neurogenic claudication R29.818
== END 2023-12-08 11:52 | disposition home or self-care (01) ==
PROVIDERS: PCP Family Medicine; Visit Provider Physician Assistant
DX: R29.818 Other symptoms and signs involving the nervous system (principal)
CPT/HCPCS: 99024